=== PATIENT | female | born 1960 | race Caucasian/White ===

== ENCOUNTER → 2019-07-25 13:17 | Outpatient (BNVA) | payer OTHER, SELFPAY | PROVIDERS: Family Provider Family Medicine; PCP Family Medicine; Visit Provider Internal Medicine Rheumatology | DX: M05.79 Rheumatoid arthritis with rheumatoid factor of multiple sites without organ or systems involvement (principal); Z79.899 Other long term (current) drug therapy; Z11.59 Encounter for screening for other viral diseases; Z72.89 Other problems related to lifestyle | CPT/HCPCS: 36415; 80076; 82306; 82565; 85651; 86140; 86704; 99214 ==

== ENCOUNTER → 2019-07-25 14:20 | Outpatient (BNVA) | payer OTHER, SELFPAY | PROVIDERS: Family Provider Family Medicine; PCP Family Medicine; Visit Provider Internal Medicine Rheumatology | DX: M05.79 Rheumatoid arthritis with rheumatoid factor of multiple sites without organ or systems involvement (principal); Z79.899 Other long term (current) drug therapy; Z11.59 Encounter for screening for other viral diseases; Z71.89 Other specified counseling | CPT/HCPCS: 85025 ==

== ENCOUNTER → 2019-11-29 11:13 | Outpatient (BNVA) | payer OTHER, SELFPAY | PROVIDERS: Family Provider Family Medicine; PCP Family Medicine; Visit Provider Internal Medicine Rheumatology | DX: Z79.899 Other long term (current) drug therapy (principal) | CPT/HCPCS: 36415; 80076; 82565; 85025; 85651; 86140 ==

== ENCOUNTER → 2019-12-18 15:55 | Outpatient (BNVA) | payer OTHER, SELFPAY | PROVIDERS: Family Provider Family Medicine; PCP Family Medicine; Visit Provider Internal Medicine Rheumatology | DX: M05.79 Rheumatoid arthritis with rheumatoid factor of multiple sites without organ or systems involvement (principal); Z79.899 Other long term (current) drug therapy; F17.210 Nicotine dependence, cigarettes, uncomplicated | CPT/HCPCS: 99214 ==

== ENCOUNTER 2020-03-06 10:26 | Outpatient (CLI) | payer BC, SELFPAY ==
--- NOTE | 2020-03-06 10:45 | MM_ITS ---
WS: [id number] Bilateral screening digital mammogram, 03/06/2020 Clinical Data: SCREENING Comparison: 01/30/2019, 01/25/2018, 01/24/2017, 01/19/2016, 01/13/2015. Findings: The breast parenchymal pattern shows fibroglandular tissue No spiculated masses or clustered calcific ations are seen. There are no secondary signs of carcinoma. Mole markers are on the breasts. MM/[id number] Impression: 1. Negative bilateral mammogram unchanged. 2. Recommend annual screening mammograms. BIRADS: 1-Negative FOLLOW UP: 1 Year Follow-up The CAD instrument checker was used.
== END 2020-03-06 10:27 | disposition home or self-care (01) ==
LOC: RADSHAW 10:32
PROVIDERS: PCP Nurse Practitioner Family; Visit Provider Nurse Practitioner Family
DX: Z12.31 Encounter for screening mammogram for malignant neoplasm of breast (principal)
CPT/HCPCS: 77067

== ENCOUNTER → 2020-03-12 09:40 | Outpatient (BNVA) | payer BC, SELFPAY | PROVIDERS: PCP Nurse Practitioner Family | DX: Z79.899 Other long term (current) drug therapy (principal) | CPT/HCPCS: 36415; 80076; 82565; 85025; 85651; 86140 ==

== ENCOUNTER → 2020-04-14 13:37 | Outpatient (BNVA) | payer BC, SELFPAY | PROVIDERS: PCP Nurse Practitioner Family; Visit Provider Internal Medicine Rheumatology | DX: M05.79 Rheumatoid arthritis with rheumatoid factor of multiple sites without organ or systems involvement (principal); Z79.899 Other long term (current) drug therapy; Z79.52 Long term (current) use of systemic steroids; R21 Rash and other nonspecific skin eruption | CPT/HCPCS: 99214 ==

== ENCOUNTER → 2020-08-20 09:57 | Outpatient (BNVA) | payer OTHER, SELFPAY | PROVIDERS: PCP Nurse Practitioner Family; Visit Provider Internal Medicine Rheumatology | DX: M05.79 Rheumatoid arthritis with rheumatoid factor of multiple sites without organ or systems involvement (principal); M19.90 Unspecified osteoarthritis, unspecified site; Z79.899 Other long term (current) drug therapy | CPT/HCPCS: 36415; 80076; 82565; 85025; 86140 ==

== ENCOUNTER → 2020-08-27 09:59 | Outpatient (BNVA) | payer OTHER, SELFPAY | PROVIDERS: PCP Nurse Practitioner Family; Visit Provider Internal Medicine Rheumatology | DX: M05.79 Rheumatoid arthritis with rheumatoid factor of multiple sites without organ or systems involvement (principal); Z79.899 Other long term (current) drug therapy; G56.03 Carpal tunnel syndrome, bilateral upper limbs; F17.210 Nicotine dependence, cigarettes, uncomplicated | CPT/HCPCS: 99214 ==

== ENCOUNTER → 2020-12-03 12:50 | Outpatient (BNVA) | payer OTHER, SELFPAY | PROVIDERS: PCP Nurse Practitioner Family; Visit Provider Internal Medicine Rheumatology | DX: M05.79 Rheumatoid arthritis with rheumatoid factor of multiple sites without organ or systems involvement (principal); W19.XXXA Unspecified fall, initial encounter; Z79.899 Other long term (current) drug therapy; G56.03 Carpal tunnel syndrome, bilateral upper limbs; Z71.89 Other specified counseling; F17.210 Nicotine dependence, cigarettes, uncomplicated | CPT/HCPCS: 99214 ==

== ENCOUNTER 2020-12-03 13:45 | Outpatient (CLI) | payer OTHER, SELFPAY ==
--- NOTE | 2020-12-03 13:59 | XR_ITS ---
WS: [id number] Pelvis, AP view, 12/03/2020 Clinical Data: M05.79 - Rheumatoid arthritis with rheumatoid factor of m... Comparison: None. Findings: No fractures or dislocations are seen. The SI joints and pubic symphysis are intact. The soft tissues are not remarkable. The hips show mild osteoarthritic change. The patient has had pelvic surgery with surgical clips overlying the pubic symphysis. XR/XR pelvis 1-2V* [id number] Impression: Negative for pelvic or hip fracture.
--- NOTE | 2020-12-03 13:59 | XR_ITS ---
WS: [id number] Right ankle, 3 views, 12/03/2020 Clinical Data: M05.79 - Rheumatoid arthritis with rheumatoid factor of m... Comparison: None. Findings: No fractures or dislocations are seen. The ankle mortise is normal. The talus and calcaneus are unrem arkable. No soft tissue swelling over the medial or lateral malleolus is seen. There is minimal osteoarthritic change of the ankle joint. There is a small Achilles spur. XR/XR ankle RT min 3V* [id number] Impression: Minimal osteoarthritic change of the right ankle.
[2020-12-03 14:06] LABS: Basophils # 0.1 10^3/uL (0.0-0.1); Basophils % 1.1 %; Eosinophils # 0.2 10^3/uL (0.0-0.8); Eosinophils % 1.3 %; Hematocrit 35.8 % (37.0-47.0); Lymphocytes # 3.5 10^3/uL (0.8-4.8); Lymphocytes % 31.3 %; Mean Corpuscular HGB Conc 33.5 g/dL (30.0-36.0); Mean Corpuscular Hemoglobin 33.4 pg (28.0-34.0); Mean Corpuscular Volume 99.7 fL (81-99); Mean Platelet Volume 10.4 fL (7.4-10.4); Monocytes # 0.5 10^3/uL (0.2-0.9); Monocytes % 4.2 %; Neutrophils # 6.94 10^3/uL (1.8-7.7); Neutrophils % 61.8 %; Nucleated Red Blood Cells % 0 %; Platelet Count 377 10^3/cmm (130-400); Red Blood Count 3.59 10^6/uL (4.1-5.3); Red Cell Distribution Width 15.3 % (12.1-15.1); White Blood Count 11.2 10^3/uL (4.0-10.0)
[2020-12-03 14:25] LABS: Alanine Aminotransferase 11 U/L (0-33); Alkaline Phosphatase 130 IU/L (35-105); Aspartate Amino Transferase 18 U/L (0-32); C Reactive Protein 6.5 mg/L (0.0-4.9); Glomerular Filtration Rate 64.3 mL/min (90-130); Total Bilirubin 0.5 mg/dL (0.15-1.2)
[2020-12-03 14:45] LABS: Erythrocyte Sedimentation Rate 40 mm/hr (0-15)
== END 2020-12-03 13:46 | disposition home or self-care (01) ==
PROVIDERS: PCP Nurse Practitioner Family; Visit Provider Internal Medicine Rheumatology
DX: M05.79 Rheumatoid arthritis with rheumatoid factor of multiple sites without organ or systems involvement (principal); Z79.899 Other long term (current) drug therapy; W19.XXXA Unspecified fall, initial encounter
CPT/HCPCS: 36415; 72170; 73610; 80076; 82565; 85025; 85651; 86140

== ENCOUNTER 2021-03-19 15:10 | Outpatient (CLI) | payer OTHER, SELFPAY ==
--- NOTE | 2021-03-19 | CT_ITS ---
WS: [id number] CT CHEST WITHOUT INTRAVENOUS CONTRAST HISTORY: WELLNESS EXAM, rheumatoid arthritis. Smoking history. TECHNIQUE: Contiguous 5 mm axial imaging performed on the thorax. Coronal and sagittal reformats are submitted. All CT scans at [facility] use at least one of these dose optimization techniques: automated exposure control; mA and/or kV adjustment per patient size (includes targeted exams where dose is matched to clinical indication); or iterative reconstruction. CONTRAST: None DLP: 570.67 mGy.cm COMPARISON: None available. Lungs and central airway: Moderate pulmonary hyperexpansion. Severe changes of emphysema. There are a few scattered micronodules within each lung. Largest measures 2 mm in the posterior LEFT upper lobe. No mass or nodule/follow-up is recommended for micronodules. Pleura: Normal. No pleural effusion. Heart and pericardium: Mildly enlarged heart. Small anterior pericardial effusion. Diameter of the ef fusion is 12 mm. Mediastinum and abdirizak: No adenopathy. Vessels: Mild atherosclerosis aorta with no aneurysm. Pulmonary artery size is not significantly enla rged. Chest wall and lower neck: No soft tissue masses. Upper abdomen: Small hiatal hernia. Suprarenal calcifications continue into the abdominal aorta. Norm al adrenals. Visualized liver, gallbladder, spleen and pancreas are negative. Osseous structures: No destructive process. CT/CT chest wo con [id number] IMPRESSION: 1. Moderate to severe emphysema. No adenopathy. 2. Mild cardiomegaly and a small pericardial effusion. 3. Mild atherosclerosis aorta.
--- NOTE | 2021-03-19 15:16 | XR_ITS ---
WS: [id number] DEXA (DUAL ENERGY X-RAY ABSORPTIOMETRY) Bone mineral density was performed using a ZOCKO machine. HISTORY: POST MENOPAUSAL COMPARISON: None available. Lumbar spine BMD (L1-L4): 0.858 g/cm2 T score: -2.7 Z score: -1.8 Total hip BMD: Left: 0.842 g/cm2. T score: -1.3 Z score: -0.6 Right: 0.812 g/cm2. T score: -1.6 Z score: -0.8 10 year probability of a major osteoporotic fracture is 37%. XR/XR DEXA axial skeleton* [id number] IMPRESSION: OSTEOPOROSIS based upon the WHO classification for females.
== END 2021-03-19 15:11 | disposition home or self-care (01) ==
PROVIDERS: PCP Clinical Nurse Specialist Adult Health; Visit Provider Clinical Nurse Specialist Adult Health
DX: Z00.00 Encounter for general adult medical examination without abnormal findings (principal); Z78.0 Asymptomatic menopausal state; Z87.891 Personal history of nicotine dependence; J43.9 Emphysema, unspecified; I51.7 Cardiomegaly; I31.3 Pericardial effusion (noninflammatory); I70.0 Atherosclerosis of aorta
CPT/HCPCS: 71250; 77080

== ENCOUNTER → 2021-03-25 12:41 | Outpatient (BNVA) | payer OTHER, MEDICAID, SELFPAY | PROVIDERS: PCP Clinical Nurse Specialist Adult Health; Visit Provider Internal Medicine Rheumatology | DX: M05.79 Rheumatoid arthritis with rheumatoid factor of multiple sites without organ or systems involvement (principal); Z79.899 Other long term (current) drug therapy; G56.03 Carpal tunnel syndrome, bilateral upper limbs; W19.XXXA Unspecified fall, initial encounter; Z71.89 Other specified counseling | CPT/HCPCS: 99214 ==

== ENCOUNTER 2021-04-27 09:12 | Outpatient (CLI) | payer OTHER, SELFPAY ==
--- NOTE | 2021-04-27 09:23 | MM_ITS ---
WS: [id number] SCREENING DIGITAL MAMMOGRAM WITH CAD HISTORY: SCREENING COMPARISON: 03/06/2020, 01/30/2019 and 01/25/2018 Bilateral CC and MLO views submitted. Computer aided detection analyzed. Breast composition: There are scattered areas of fibroglandular density. Focal asymmetry measuring 6 mm seen on the LEFT MLO projection at a middle depth. This is central to the nipple. Not definitely s een on the CC projection. No additional interval changes. Benign calcifications in each breast. MM/[place] [id number] IMPRESSION: BI-RADS: 0-Incomplete: Need additional imaging evaluation FOLLOW UP: Need Additional Imaging LEFT breast: Spot compression views (CC and MLO). True ML. Ultrasound to follow if abnormality persists.
== END 2021-04-27 09:13 | disposition home or self-care (01) ==
PROVIDERS: PCP Clinical Nurse Specialist Adult Health; Visit Provider Clinical Nurse Specialist Adult Health
DX: Z12.31 Encounter for screening mammogram for malignant neoplasm of breast (principal)
CPT/HCPCS: 77067

== ENCOUNTER 2021-05-14 07:50 | Outpatient (CLI) | payer OTHER, SELFPAY ==
--- NOTE | 2021-05-14 07:55 | US_ITS ---
WS: [id number] ADDITIONAL VIEWS LEFT MAMMOGRAM LEFT BREAST ULTRASOUND HISTORY: LT BREAST ASYMMETRY COMPARISON: 04/27/2021, 03/06/2020 and 01/30/2019 LEFT MAMMOGRAM: Spot compression views and true ML. Increased asymmetry in the subareolar region. No distortion. No discrete mass. The nipple is slightly retracted but this is not a new finding. Ultrasound will be performed in the subareolar region. LEFT BREAST ULTRASOUND 2-D and color Doppler imaging submitted. Ultrasound is directed to the subareolar region. There are mildly prominent dilated ducts. There is d ebris which is nonvascular within the ducts. There is no focal mass or shadowing. US/US breast LT limited* [id number] IMPRESSION: BI-RADS: 3-Probably Benign FOLLOW UP: 6 Month Follow-up Recommend ultrasound follow-up LEFT breast in 6 months to reevaluate the promin ent ducts with debris in the subareolar region. Suspect this is related to duct ectasia. No associated mass identified.
== END 2021-05-14 07:51 | disposition home or self-care (01) ==
LOC: RADSHAW 07:53
PROVIDERS: PCP Clinical Nurse Specialist Adult Health; Visit Provider Clinical Nurse Specialist Adult Health
DX: N64.89 Other specified disorders of breast (principal)
CPT/HCPCS: 76642; 77065

== ENCOUNTER 2021-05-25 09:36 | Outpatient (CLI) | payer OTHER, SELFPAY ==
--- NOTE | 2021-05-25 09:56 | XR_ITS ---
WS: [id number] Right hand, 2 views, 05/25/2021 Clinical Data: ARTHRITIS/PAIN/EVAL FOR PSA,RA, OA Comparison: None. Findings: No fractures or dislocations are seen. The soft tissues are unremarkable. There is osteoa rthritic narrowing of the right first IP joint and right second DIP joint. No periarticular demineral ization or calcifications are seen. XR/XR hand RT 2V [id number] Impression: Osteoarthritis of the right first IP joint and right second DIP joint.
== END 2021-05-25 09:37 | disposition home or self-care (01) ==
LOC: RAD 09:38
PROVIDERS: PCP Clinical Nurse Specialist Adult Health; Visit Provider Dermatology
DX: Z02.71 Encounter for disability determination (principal); M19.041 Primary osteoarthritis, right hand
CPT/HCPCS: 73120

== ENCOUNTER → 2021-06-30 08:17 | Outpatient (BNVA) | payer OTHER, SELFPAY | PROVIDERS: PCP Clinical Nurse Specialist Adult Health; Visit Provider Family Medicine | DX: Z01.812 Encounter for preprocedural laboratory examination (principal); Z20.822 Contact with and (suspected) exposure to COVID-19 | CPT/HCPCS: 87635 ==

== ENCOUNTER 2021-07-07 07:43 | Outpatient (CLI) | payer OTHER, SELFPAY ==
--- NOTE | 2021-07-07 13:57 | PFTS_ITS ---
Date of Study:07/07/21 Date of Dictation: 07/09/2021 MECHANICS: Prebronchodilator forced vital capacity (FVC) is normal. Prebronchodilator forced expiratory volume in one second (FEV1) is normal. FEV1/FVC is reduced. -There is no postbronchodilator study FLOW VOLUME LOOP: Scooping of expiratory limb suggestive of airway obstruction LUNG VOLUMES: Total lung capacity (TLC) is normal. Residual volume (RV) is normal. DIFFUSING CAPACITY FOR CARBON MONOXIDE: Mildly reduced 63% . INTERPRETATION: The pre-bronchodilator spirometry consistent with obstructive pattern. Lung volumes are normal. Mild gas transfer defect. Clinical correlation recommended MTDD
== END 2021-07-07 07:44 | disposition home or self-care (01) ==
PROVIDERS: PCP Clinical Nurse Specialist Adult Health; Visit Provider Clinical Nurse Specialist Adult Health
DX: R06.02 Shortness of breath (principal)
CPT/HCPCS: 94010; 94726; 94729

== ENCOUNTER 2021-10-26 04:05 | Observation (INO) | payer OTHER, MEDICAID, SELFPAY ==
[2021-10-26] VITALS (11 sets, daily range): BP systolic 90–133; BP diastolic 51–98; PULSE 75–103; RESP 16–20; TEMP 36.5–37.4; O2SAT 92–97; BMI 25.7
[2021-10-26 04:29] LABS: Basophils # 0.2 10^3/uL (0.0-0.1); Basophils % 1.3 %; Eosinophils % 0.1 %; Hematocrit 50.6 % (37.0-47.0); Hemoglobin 17.5 g/dL (11.5-15.3); Lymphocytes # 1.5 10^3/uL (0.8-4.8); Lymphocytes % 9.8 %; Mean Corpuscular HGB Conc 34.6 g/dL (30.0-36.0); Mean Corpuscular Hemoglobin 32.9 pg (28.0-34.0); Mean Corpuscular Volume 95.1 fl (81-99); Mean Platelet Volume 12.5 fL (7.4-10.4); Monocytes # 2.3 10^3/uL (0.2-0.9); Monocytes % 14.8 %; Neutrophils # 11.18 10^3/uL (1.8-7.7); Neutrophils % 73.3 %; Nucleated Red Blood Cells % 0 %; Platelet Count 272 10^3/cmm (130-400); Red Blood Count 5.32 10^6/uL (4.1-5.3); Red Cell Distribution Width 13.5 % (12.1-15.1); White Blood Count 15.3 10^3/uL (4.0-10.0)
--- NOTE | 2021-10-26 04:34 | W.ED.NAVMDI ---
HPI - Nausea/Vomiting/Diarrhea General: Chief complaint: Nausea/Vomiting/Diarrhea Stated complaint: n/v/d Time Seen by Provider: 10/26/21 04:21 Source: patient History of Present Illness: 61-year-old female with epigastric pain, vomiting and diarrhea for the past 24 hours or so. She says she has been hot and cold, but no documented fever. Vomitus and stool are both watery. No blood. Pain has not radiated significantly. She feels dehydrated, and has body aches. She has had a mild cough. MD elicited complaint: nausea, vomiting, diarrhea and abdominal pain Onset (ago): hour(s) (24) Description of vomiting: watery Description of diarrhea: watery Associated nausea: Yes Associated abdominal pain: Yes Location of pain: Diffuse and Epigastric Pain consistency: intermittent Severity: moderate Quality: cramping Exacerbating factors: none Relieving factors: none Associated symtoms: Reports cough, fevers/chills and nausea; Denies altered mental status, chest pain, diaphoresis, dysuria, numbness or short of breath Review of Systems Const: Reports: chills and body aches; Denies: fever(s) or diaphoresis Card: Denies: chest pain GI: Reports: nausea : Denies: dysuria Musc: Denies: back pain PFSH ED PFSH: Medical History Bilateral carpal tunnel syndrome Encounter for screening for other viral diseases Fall High risk medication use Hypothyroid Immunization counseling Rheumatoid arthritis with rheumatoid factor Seropositive rheumatoid arthritis of multiple sites Surgical History History of hysterectomy Hx of section Family History Other Cancer Diabetes Hypertension Denies family history of Rheumatoid arthritis Lupus CAD (coronary artery disease) Chronic kidney disease (CKD) Stroke Social History Smoking and tobacco status: never smoked Alcohol intake: never Pets and animals: No Financial difficulty paying for basics: Not Very Hard Physical Exam Const: EXAM LIMITATIONS: no altered mental status HENMT: COMMON NORMALS: normocephalic, atraumatic and Normal external nose present HEAD & SCALP: normocephalic and atraumatic FACE & SINUS: normal facial exam NOSE: Normal external nose present Eye: COMMON NORMALS: Equal, round and reactive pupils present and EOMs intact bilaterally PUPIL: Yes Equal, round and reactive pupils present Resp: COMMON NORMALS: normal respiratory effort and No use of accessory muscles AUSCULTATION: rhonchi upper bilaterally Cardio: COMMON NORMALS: regular rate and regular rhythm RATE: regular rate RHYTHM: regular rhythm GI: COMMON NORMALS: Normal to inspection, nondistended, normoactive bowel sounds present and Soft to palpation PALPATION: Yes Soft to palpation and Yes Tenderness to palpation present (GI) (epigastric) Extremity: COMMON NORMALS: no pedal edema Neuro: MARTIN COMA SCALE: document GCS findings Martin coma scale eye opening: Spontaneous Martin coma scale verbal response: Orientated [place] coma scale motor response: Obey commands Martin coma scale total score: 15 Skin: GENERAL SKIN EXAM: no jaundice Course Vital Signs: Vital signs: Vital Signs Temperature 97.7 F 10/26/21 04:21 Pulse Rate 91 10/26/21 06:00 Respiratory Rate 16 10/26/21 06:00 Blood Pressure 110/60 10/26/21 06:00 Pulse Oximetry 92 10/26/21 06:00 MDM - Nausea/Vomiting/Diarrhea Medical Decision Making 61-year-old female with vomiting and diarrhea. White blood cell count is 15.3. Her bicarbonate level 16. Her creatinine is 2.5 up from 0.9 in November of last year. Her CRP is not elevated though. CT scan shows nondilated fluid-filled loops of bowel consistent with ileus. She will require admission for dehydration with acute kidney injury given her creatinine. Vital signs currently BP 109/66, heart rate 100, saturations 93 to 94% on room air. Lab Data : 10/26/21 04:20 10/26/21 04:20 Radiology Impressions Abdomen/Pelvis CT 10/26/21 04:35 IMPRESSION: 1. Nondilated small bowel loops containing fluid and air fluid levels suggests diffuse ileus. 2. Normal appendix 3. No evidence for ureteral obstruction 4. Small pericardial effusion Laboratory Results WBC 15.3 10^3/uL (4.0-10.0) H 10/26/21 04:20 RBC 5.32 10^6/uL (4.1-5.3) H 10/26/21 04:20 Hgb 17.5 g/dL (11.5-15.3) H 10/26/21 04:20 Hct 50.6 % (37.0-47.0) H 10/26/21 04:20 MCV 95.1 fl (81-99) 10/26/21 04:20 MCH 32.9 pg (28.0-34.0) 10/26/21 04:20 MCHC 34.6 g/dL (30.0-36.0) 10/26/21 04:20 RDW 13.5 % (12.1-15.1) 10/26/21 04:20 Plt Count 272 10^3/cmm (130-400) 10/26/21 04:20 MPV 12.5 fL (7.4-10.4) H 10/26/21 04:20 Neut % (Auto) 73.3 % 10/26/21 04:20 Lymph % (Auto) 9.8 % 10/26/21 04:20 Hitchcock % (Auto) 14.8 % 10/26/21 04:20 Eos % (Auto) 0.1 % 10/26/21 04:20 Baso % (Auto) 1.3 % 10/26/21 04:20 Neut # (Auto) 11.18 10^3/uL (1.8-7.7) H 10/26/21 04:20 Lymph # (Auto) 1.5 10^3/uL (0.8-4.8) 10/26/21 04:20 Hitchcock # (Auto) 2.3 10^3/uL (0.2-0.9) H 10/26/21 04:20 Eos # (Auto) 0.0 10^3/uL (0.0-0.8) 10/26/21 04:20 Baso # (Auto) 0.2 10^3/uL (0.0-0.1) H 10/26/21 04:20 Nucleated RBC % (auto) 0 % 10/26/21 04:20 Nucleated RBCs # 0.0 /100WBC 10/26/21 04:20 Sodium 135 mmol/L (136-145) L 10/26/21 04:20 Potassium 4.2 mmol/L (3.5-5.1) 10/26/21 04:20 Chloride 97 mmol/L (98-107) L 10/26/21 04:20 Carbon Dioxide 16 mmol/L (22-29) L 10/26/21 04:20 Anion Gap 26.2 (5-19) H 10/26/21 04:20 BUN 29 mg/dL (6-20) H 10/26/21 04:20 Creatinine 2.5 mg/dL (0.5-0.9) H 10/26/21 04:20 GFR Calculation 19.7 mL/min (90-130) L 10/26/21 04:20 Glucose 168 mg/dL (65-115) H 10/26/21 04:20 Calculated Osmolality 290 mOsm/kg (285-295) 10/26/21 04:20 Calcium 10.1 mg/dL (8.5-10.5) 10/26/21 04:20 Total Bilirubin 0.4 mg/dL (0.15-1.2) 10/26/21 04:20 AST 46 U/L (0-32) H 10/26/21 04:20 ALT 44 U/L (0-33) H 10/26/21 04:20 Alkaline Phosphatase 85 IU/L (35-105) 10/26/21 04:20 C-Reactive Protein 3.0 mg/L (0.0-4.9) 10/26/21 04:20 Total Protein 9.3 g/dL (6.6-8.7) H 10/26/21 04:20 Albumin 5.4 g/dL (3.5-5.2) H 10/26/21 04:20 Globulin 3.9 g/dL (1.3-4.6) 10/26/21 04:20 Lipase 11 U/L (13-60) L 10/26/21 04:20 Discharge Plan Discharge Patient Disposition: Admitted As Inpatient Clinical Impression: Ileus, Acute kidney injury, Acute dehydration Condition: Stable Coding Level of Care Code ED Cash Accountant for Jess Fwd Exam Comprehensive
--- NOTE | 2021-10-26 04:35 | CTR_ITS ---
PROCEDURE INFORMATION: Exam: CT Abdomen And Pelvis Without Contrast Exam date and time: 10/26/2021 4:57 AM Age: 61 years old Clinical indication: Nausea and vomiting; Abdominal pain; Epigastric; Prior surgery; Surgery date: 6+ months; Surgery type: Hyst; Additional info: Epigastric pain, vomiting TECHNIQUE: Imaging protocol: Computed tomography of the abdomen and pelvis without contrast. Radiation optimization: All CT scans at this facility use at least one of these dose optimization techniques: automated exposure control; mA and/or kV adjustment per patient size (includes targeted exams where dose is matched to clinical indication); or iterative reconstruction. COMPARISON: CR XR pelvis 1-2V* [id number] 12/03/2020 2:04 PM RADIATION DOSE METRICS: Total DLP (mGy-cm): 966.09 FINDINGS: Heart: There is a small pericardial effusion seen anteriorly. Liver: Normal. No mass. Gallbladder and bile ducts: Normal. No calcified stones. No ductal dilation. Pancreas: Normal. No ductal dilation. Spleen: Normal. No splenomegaly. Adrenal glands: Normal. No mass. Kidneys and ureters: Normal. No hydronephrosis. Stomach and bowel: There are non dilated loops of small bowel present containing fluid and air fluid levels, findings compatible with a diffuse ileus. Appendix: The appendix is visualized and is normal in configuration. Intraperitoneal space: Unremarkable. No free air. No significant fluid collection. Vasculature: Unremarkable. No abdominal aortic aneurysm. Lymph nodes: Unremarkable. No enlarged lymph nodes. Urinary bladder: Status post bladder suspension. Reproductive: Status post hysterectomy. Bones/joints: Unremarkable. No acute fracture. Soft tissues: Unremarkable. CT/CT abdomen pelvis wo con [id number] IMPRESSION: 1. Nondilated small bowel loops containing fluid and air fluid levels suggests diffuse ileus. 2. Normal appendix 3. No evidence for ureteral obstruction 4. Small pericardial effusion
[2021-10-26 04:45] LABS: Alanine Aminotransferase 44 U/L (0-33); Albumin Level 5.4 g/dL (3.5-5.2); Alkaline Phosphatase 85 IU/L (35-105); Anion Gap 26.2 (5-19); Aspartate Amino Transferase 46 U/L (0-32); Blood Urea Nitrogen 29 mg/dL (6-20); Calcium 10.1 mg/dL (8.5-10.5); Carbon Dioxide 16 mmol/L (22-29); Chloride 97 mmol/L (98-107); Globulin 3.9 g/dL (1.3-4.6); Glomerular Filtration Rate 19.7 mL/min (90-130); Glucose 168 mg/dL (65-115); Lipase 11 U/L (13-60); Osmolality Calculated 290 mOsm/kg (285-295); Potassium 4.2 mmol/L (3.5-5.1); Sodium 135 mmol/L (136-145); Total Bilirubin 0.4 mg/dL (0.15-1.2); Total Protein 9.3 g/dL (6.6-8.7)
[2021-10-26] MEDS: famotidine 20 mg/2 mL INJ IVP (04:56)
[2021-10-26] MEDS: ondansetron 2 mg/ML SDV 2 mL 4 MG IVP (04:56)
[2021-10-26] MEDS: sodium chloride 0.9% 1,000 ML 999 ML IV ×2 (04:56→07:17)
[2021-10-26 06:41] LABS: Adenovirus Not Detected (NOT DETECT); Chlamydia Pneumoniae Not Detected (NOT DETECT); Coronavirus 229E,HKU1,NL63,OC4 Not Detected (NOT DETECT); Human Metapneumovirus Not Detected (NOT DETECT); Human Rhinovirus/Enterovirus Not Detected (NOT DETECT); Influenza A Not Detected (NOT DETECT); Influenza A H1 Not Detected (NOT DETECT); Influenza A H1-2009 Not Detected (NOT DETECT); Influenza A H3 Not Detected (NOT DETECT); Influenza B Not Detected (NOT DETECT); Mycoplasma Pneumoniae Not Detected (NOT DETECT); Parainfluenza Virus Type 1 Not Detected (NOT DETECT); Parainfluenza Virus Type 2 Not Detected (NOT DETECT); Parainfluenza Virus Type 3 Not Detected (NOT DETECT); Parainfluenza Virus Type 4 Not Detected (NOT DETECT); Respiratory Syncytial Virus A Not Detected (NOT DETECT); Respiratory Syncytial Virus B Not Detected (NOT DETECT); SARS-COV-2 Not Detected (NOT DETECT)
--- NOTE | 2021-10-26 07:48 | PM.HP ---
Providers/Chief Complaint Admitting Physician: Deepak Dowd MD Chief Complaint: n/v/d History of Present Illness Sabrina Dominguez is a 61 year old female that presents to the emergency department with 24-hour history of nausea, vomiting and diarrhea. She reports she has had some abdominal cramping, that goes away with vomiting and the diarrhea. She has had some chills, but no vomiting. She denies any ill contacts. She has not been around anybody with COVID. She has been vaccinated. She reports quite a bit of muscle pain. She denies any bloody or brown urine. She has vomited her medicine lately. She denies any blood in her stool, black or tarry stools, or hematemesis. Review of Systems General: Reports: 10 or more systems reviewed and unremarkable except in HPI and below Const: Reports: chills, body aches and malaise; Denies: fever(s) Eyes: Denies: change in vision ENMT: Denies: throat pain Card: Denies: chest pain Resp: Denies: dyspnea GI: Reports: abdominal pain, nausea and vomiting; Denies: hematemesis, hematochezia or melena : Denies: flank pain Musc: Denies: neck pain Skin/Breast: Denies: rash Neuro: Denies: headache(s) Psych: Reports: anxiety and depression Endo: Denies: polyuria Taurus/Lymph: Denies: easy bruising All/Imm: Denies: urticaria Medications/Allergies Home Medications Medication Instructions Recorded Confirmed Last Taken Type tramadol 50 mg tablet 50 mg PO Q4H PRN 07/25/19 07/21/21 Unknown History alprazolam 0.5 mg tablet 0.5 mg PO BID 09/28/19 07/21/21 Unknown History cholecalciferol (vitamin D3) 25 25 mcg PO DAILY 09/28/19 07/21/21 Unknown History mcg (1,000 unit) capsule levothyroxine 137 mcg capsule 137 mcg PO DAILY 09/28/19 07/21/21 Unknown History sertraline 25 mg tablet (Zoloft) 25 mg PO DAILY 09/28/19 07/21/21 Unknown History prednisone 10 mg tablet 10 mg PO DAILY PRN #30 tab 04/14/20 07/21/21 Unknown Rx folic acid 1 mg tablet 3 mg PO DAILY #90 tab 09/04/20 07/21/21 Unknown Rx ciclopirox 8 % topical solution 1 applic TOPICAL DAILY #6.6 ml 02/10/21 07/21/21 Unknown Rx ketoconazole 2 % topical cream 1 applic TOPICAL BID #60 g 02/10/21 07/21/21 Unknown Rx diclofenac sodium 75 mg 75 mg PO Q12H PRN #30 tab 03/25/21 07/21/21 Unknown Rx tablet,delayed release triamcinolone acetonide 0.1 % 1 applic TOPICAL BID #80 g 03/26/21 07/21/21 Unknown Rx topical ointment albuterol sulfate 90 mcg/actuation 2 inh INHALATION Q6H PRN 07/21/21 07/21/21 Unknown History breath activated powder inhaler gabapentin 300 mg capsule See Rx Instructions PO BID #180 cap 07/21/21 07/21/21 Unknown Rx hydroxychloroquine 200 mg tablet 200 mg PO BID #180 tab 07/21/21 07/21/21 Unknown Rx prednisone 5 mg tablet See Rx Instructions PO .COMPLEX 07/21/21 07/21/21 Unknown Rx #90 tab tiotropium 2.5 mcg-olodaterol 2.5 2 puff INHALATION DAILY 07/21/21 07/21/21 Unknown History mcg/actuation mist for inhalation (Stiolto Respimat) leflunomide 20 mg tablet 20 mg PO DAILY #90 tab 07/27/21 Unknown Rx tocilizumab 162 mg/0.9 mL 162 mg (0.9 mL) SUBCUT .Q7days #4 10/13/21 Unknown Rx subcutaneous pen injector (Actemra ml ACTPen) Allergies Allergy/AdvReac Type Severity Reaction Status Date / Time meperidine [From Demerol] Allergy vomiting Verified 07/21/21 10:52 PFSH Acute PFSH: Medical History (Updated 10/26/21 @ 07:53 by Deepak Dowd MD) Bilateral carpal tunnel syndrome COPD (chronic obstructive pulmonary disease) Depression with anxiety Encounter for screening for other viral diseases Fall High risk medication use Hypothyroid Immunization counseling Osteoporosis Rheumatoid arthritis with rheumatoid factor Seropositive rheumatoid arthritis of multiple sites Tobacco dependency Surgical History History of hysterectomy Hx of section Family History Other Cancer Diabetes Hypertension Denies family history of Rheumatoid arthritis Lupus CAD (coronary artery disease) Chronic kidney disease (CKD) Stroke Social History Smoking and tobacco status: never smoked Alcohol intake: never Pets and animals: No Financial difficulty paying for basics: Not Very Hard Vitals/I&O/Wt Last Vital Signs Temp 97.7 F 10/26/21 04:21 Pulse 91 10/26/21 06:00 Resp 16 10/26/21 06:00 BP 110/60 10/26/21 06:00 Pulse Ox 92 10/26/21 06:00 10/25/21 10/26/21 10/26/21 22:59 06:59 14:59 Intake Total 1000 / 1000 Balance 1000 / 1000 Weight last 48 hrs Weight 70.307 kg Physical Exam Narrative: General exam is a white female, denying any abdominal pain currently, in no apparent distress HEENT: Atraumatic normocephalic. Pupils equally round. Oropharynx with dry mucous membranes, clear Neck is supple no lymphadenopathy or thyromegaly Cardiovascular regular rate and rhythm without murmur, no S3 or S4 Lungs clear no wheezing or crackles Abdomen is soft. Positive bowel sounds. No obvious organomegaly. No tenderness. exam is deferred Extremities no cyanosis clubbing or edema, cap refill brisk Skin no rash Neuro no obvious focal deficits. Data : 10/26/21 04:20 10/26/21 04:20 Micro: Anion gap is 26 AST ALT 46 and 44 respectively Alk phos 85 Bilirubin normal Calcium normal Lipase 11 COVID PCR negative Abdomen pelvis CT demonstrates nondilated small bowel loops containing some air-fluid levels, normal appendix, no evidence of ureteral obstruction, small pericardial effusion A&P Assessment and plan (1) Intractable vomiting: Associated with diarrhea. This most likely represents gastroenteritis. Hydration Stool studies, C. difficile toxin N.p.o. for now, with the exception of ice chips and advance diet as tolerated. Protonix IV Status: Acute (2) Acute kidney injury: Significant acute kidney injury on presentation Check CK Renal ultrasound Expect this to improve with hydration Avoid renal toxic medication Status: Acute Plan History of rheumatoid arthritis. Continue prednisone, increase to twice daily dosing to prevent adrenal crisis Tobacco dependency. Counseled 3 to 5 minutes on tobacco cessation Multiple other medical problems as outlined in past medical history Full code Heparin will suffice for DVT prophylaxis Attestations Medical Necessity Statement*: Will need less than 2 midnight stay for evaluation and treatment of acute kidney injury and intractable nausea and vomiting. Coding Level of Care Code Acute Lan/Wan Engineer for Chg Fwd Diagnoses Intractable vomiting R11.10 Acute kidney injury N17.9
[2021-10-26] MEDS: heparin 5,000 unit/mL INJ 1 mL 5000 UNIT SUBCUT ×2 (08:21→20:42)
[2021-10-26] MEDS: nicotine 21 mg Patch 1 PATCH TRANSDERMA (08:22)
[2021-10-26] MEDS: pantoprazole 40 mg SDV IVP ×2 (08:22→20:42)
[2021-10-26] MEDS: predniSONE 5 mg Tablet PO ×2 (08:23→17:10)
--- NOTE | 2021-10-26 08:38 | PC.NURSE ---
weight: 152.5 height: 5'5
--- NOTE | 2021-10-26 08:48 | PC.NURSE ---
PATIENT STATES SHE USES [employer] [employer] EVERY EVENING AROUND 2029 TO HELP HER REST. PATIENTS LAST USE WAS TUESDAY EVENING 10-24-21.
[2021-10-26 08:49] LABS: Add Urine Microscopic? YES; Bilirubin Urine 1+ (Negative); Blood Urine Trace (Negative); Glucose Urine UA Norm (Normal); Ketones Urine 1+ (Negative); Leukocyte Esterase Urine Negative (Negative); Nitrate Urine Negative (Negative); Protein Urine Trace (Negative); RBC Urine 0-4 /hpf (0-2); Urine Appearance Hazy (CLEAR); Urine Color Yellow (Yellow); Urobilinogen Urine Norm (Negative); pH Urine 5 (5-7)
[2021-10-26 08:50] LABS: Bacteria Urine 1+ /hpf; Calcium Oxalate Crystals Urine 0-4 /hpf; Mucus Urine 1+ /hpf
[2021-10-26 08:51] LABS: Add Urine Culture? No; Amorphous Sediment Urine TRACE /hpf; Hyaline Casts Urine 55-80 /lpf
[2021-10-26 08:55] LABS: Creatine Phosphokinase 185 U/L (26-192); Thyroid Stimulating Hormone 2.04 uIU/mL (0.27-4.20)
[2021-10-26] MEDS: sodium chloride 0.9% 1,000 ML 125 ML IV ×2 (09:51→17:10)
[2021-10-26 12:09] LABS: Estmated Average Glucose 100; Hemoglobin A1C 5.1 % (4.0-6.0)
[2021-10-26] MEDS: acetaminophen 325 mg Tablet 650 MG PO (15:14)
[2021-10-26] MEDS: atorvastatin 40 mg Tablet PO (20:43)
[2021-10-27] VITALS: BP 114/68; PULSE 70; RESP 17; TEMP 37.4; O2SAT 97
[2021-10-27] MEDS: acetaminophen 325 mg Tablet 650 MG PO (00:11)
[2021-10-27] MEDS: sodium chloride 0.9% 1,000 ML 125 ML IV ×2 (01:51→11:54)
[2021-10-27 04:00] VITALS: BP 130/75; PULSE 74; RESP 17; TEMP 36.8; O2SAT 96
[2021-10-27 05:47] LABS: Basophils # 0.1 10^3/uL (0.0-0.1); Basophils % 1.2 %; Eosinophils % 0.3 %; Hematocrit 40.7 % (37.0-47.0); Hemoglobin 13.7 g/dL (11.5-15.3); Lymphocytes # 2.3 10^3/uL (0.8-4.8); Lymphocytes % 31.7 %; Mean Corpuscular HGB Conc 33.7 g/dL (30.0-36.0); Mean Corpuscular Hemoglobin 32.9 pg (28.0-34.0); Mean Corpuscular Volume 97.8 fl (81-99); Mean Platelet Volume 12.4 fL (7.4-10.4); Monocytes # 1.9 10^3/uL (0.2-0.9); Monocytes % 25.7 %; Nucleated Red Blood Cells % 0 %; Platelet Count 175 10^3/cmm (130-400); Red Blood Count 4.16 10^6/uL (4.1-5.3); Red Cell Distribution Width 13.6 % (12.1-15.1); White Blood Count 7.3 10^3/uL (4.0-10.0)
[2021-10-27] MEDS: sertraline 50 mg Tablet 25 MG PO (05:55)
[2021-10-27] MEDS: levothyroxine 137 mcg Tablet PO (05:55)
[2021-10-27 06:06] LABS: Alanine Aminotransferase 35 U/L (0-33); Alkaline Phosphatase 53 IU/L (35-105); Anion Gap 13.8 (5-19); Aspartate Amino Transferase 60 U/L (0-32); Blood Urea Nitrogen 14 mg/dL (6-20); Calcium 7.4 mg/dL (8.5-10.5); Carbon Dioxide 17 mmol/L (22-29); Chloride 112 mmol/L (98-107); Globulin 2.4 g/dL (1.3-4.6); Glomerular Filtration Rate 56.7 mL/min (90-130); Glucose 80 mg/dL (65-115); Magnesium 2.3 mg/dL (1.7-2.3); Osmolality Calculated 287 mOsm/kg (285-295); Potassium 3.8 mmol/L (3.5-5.1); Sodium 139 mmol/L (136-145); Total Bilirubin 0.2 mg/dL (0.15-1.2); Total Protein 6.4 g/dL (6.6-8.7)
[2021-10-27] MEDS: ondansetron 2 mg/ML SDV 2 mL 4 MG IVP (06:14)
--- NOTE | 2021-10-27 07:45 | PC.NURSE ---
received bedside report, reviewed poc and assumed care of patient.
[2021-10-27 07:47] VITALS: BP 126/74; PULSE 67; RESP 18; TEMP 36.6; O2SAT 95
[2021-10-27 08:33] LABS: Hepatitis A Antibody IgM Non-Reactive (Nonreactive); Hepatitis B Core IgM Non-Reactive (Nonreactive); Hepatitis B Surface Antigen Non-Reactive (Nonreactive); Hepatitis C Virus Antibody Non-Reactive (Nonreactive)
[2021-10-27] MEDS: pantoprazole 40 mg SDV IVP (08:56)
[2021-10-27] MEDS: nicotine 21 mg Patch 1 PATCH TRANSDERMA (08:57)
[2021-10-27] MEDS: heparin 5,000 unit/mL INJ 1 mL 5000 UNIT SUBCUT (08:57)
[2021-10-27] MEDS: predniSONE 5 mg Tablet PO (08:57)
[2021-10-27 11:12] VITALS: PULSE 67; RESP 18; O2SAT 94
[2021-10-27 11:54] VITALS: BP 124/74; PULSE 73; RESP 18; TEMP 36.7; O2SAT 93
--- NOTE | 2021-10-27 12:58 | P.DS_ITS ---
Discharge Providers Date of Admission: 10/26/21 07:27 Date of Discharge: October 27, 2021 Attending Provider at Admission: Deepak Dowd MD Attending Provider at Discharge: Deepak Dowd MD Diagnoses at Discharge Discharge Diagnosis (1) Intractable vomiting: Status: Acute (2) Acute kidney injury: Status: Acute Reason for Visit Reason for Visit: n/v/d Hospital Course Hospital Course Mrs. Dominguez is a 61-year-old white female who presented to the hospital with vomiting and diarrhea. She had evidence of acute kidney injury. She was rehydrated, placed on Protonix, and eventually started on a clear liquid diet. Stool studies were performed which were negative for C. difficile, and enteric pathogen's. Abdomen and pelvis CT was also completed, demonstrating possible mild diffuse ileus but no other abnormality. With initiation of her clear liquid diet she had a few more episodes of emesis, which resolved. By October 27, she was able to tolerate a full liquid diet without vomiting. At that time it was deemed she could be discharged home with further outpatient follow-up. Liver tests consisting of AST and ALT were slightly elevated in the hospital. Hepatitis panel was negative. These will need to be rechecked as an outpatient. Alk phosphatase and bilirubin were normal. Urine was also checked during her hospital stay, consistent with contamination but not infection. Physical Exam Narrative: General exam is a white female, no distress Neck is supple no lymphadenopathy or thyromegaly Cardiovascular regular rate and rhythm without murmur Lungs clear Abdomen is soft with positive bowel sounds Extremities no cyanosis clubbing or edema Discharge Data Studies Completed and Pending Completed Studies During Hospitalization Category Date Time Status CT abdomen pelvis con [id number] Urgent Cat Scan 10/26/21 04:35 Completed Radiology Impressions Abdomen/Pelvis CT 10/26/21 04:35 IMPRESSION: 1. Nondilated small bowel loops containing fluid and air fluid levels suggests diffuse ileus. 2. Normal appendix 3. No evidence for ureteral obstruction 4. Small pericardial effusion Laboratory Results WBC 7.3 10^3/uL (4.0-10.0) 10/27/21 05:28 RBC 4.16 10^6/uL (4.1-5.3) 10/27/21 05:28 Hgb 13.7 g/dL (11.5-15.3) 10/27/21 05:28 Hct 40.7 % (37.0-47.0) 10/27/21 05:28 MCV 97.8 fl (81-99) 10/27/21 05:28 MCH 32.9 pg (28.0-34.0) 10/27/21 05:28 MCHC 33.7 g/dL (30.0-36.0) 10/27/21 05:28 RDW 13.6 % (12.1-15.1) 10/27/21 05:28 Plt Count 175 10^3/cmm (130-400) D 10/27/21 05:28 MPV 12.4 fL (7.4-10.4) H 10/27/21 05:28 Neut % (Auto) 41.0 % 10/27/21 05:28 Lymph % (Auto) 31.7 % 10/27/21 05:28 [place] % (Auto) 25.7 % 10/27/21 05:28 Eos % (Auto) 0.3 % 10/27/21 05:28 Baso % (Auto) 1.2 % 10/27/21 05:28 Neut # (Auto) 3.00 10^3/uL (1.8-7.7) 10/27/21 05:28 Lymph # (Auto) 2.3 10^3/uL (0.8-4.8) 10/27/21 05:28 [place] # (Auto) 1.9 10^3/uL (0.2-0.9) H 10/27/21 05:28 Eos # (Auto) 0.0 10^3/uL (0.0-0.8) 10/27/21 05:28 Baso # (Auto) 0.1 10^3/uL (0.0-0.1) 10/27/21 05:28 Nucleated RBC % (auto) 0 % 10/27/21 05:28 Nucleated RBCs # 0.0 /100WBC 10/27/21 05:28 Sodium 139 mmol/L (136-145) 10/27/21 05:28 Potassium 3.8 mmol/L (3.5-5.1) 10/27/21 05:28 Chloride 112 mmol/L (98-107) H 10/27/21 05:28 Carbon Dioxide 17 mmol/L (22-29) L 10/27/21 05:28 Anion Gap 13.8 (5-19) 10/27/21 05:28 BUN 14 mg/dL (6-20) 10/27/21 05:28 Creatinine 1.0 mg/dL (0.5-0.9) H 10/27/21 05:28 GFR Calculation 56.7 mL/min (90-130) L 10/27/21 05:28 Glucose 80 mg/dL (65-115) 10/27/21 05:28 Estimat Average Glucose 100 10/26/21 04:20 Hemoglobin A1c 5.1 % (4.0-6.0) 10/26/21 04:20 Calculated Osmolality 287 mOsm/kg (285-295) 10/27/21 05:28 Calcium 7.4 mg/dL (8.5-10.5) L 10/27/21 05:28 Magnesium 2.3 mg/dL (1.7-2.3) 10/27/21 05:28 Total Bilirubin 0.2 mg/dL (0.15-1.2) 10/27/21 05:28 AST 60 U/L (0-32) H 10/27/21 05:28 ALT 35 U/L (0-33) H 10/27/21 05:28 Alkaline Phosphatase 53 IU/L (35-105) 10/27/21 05:28 Creatine Kinase 185 U/L (26-192) 10/26/21 04:20 C-Reactive Protein 3.0 mg/L (0.0-4.9) 10/26/21 04:20 Total Protein 6.4 g/dL (6.6-8.7) L 10/27/21 05:28 Albumin 4.0 g/dL (3.5-5.2) 10/27/21 05:28 Globulin 2.4 g/dL (1.3-4.6) 10/27/21 05:28 Lipase 11 U/L (13-60) L 10/26/21 04:20 TSH 2.04 uIU/mL (0.27-4.20) 10/26/21 04:20 Urine Color Yellow (Yellow) 10/26/21 08:05 Urine Appearance Hazy (CLEAR) A 10/26/21 08:05 Urine pH 5 (5-7) 10/26/21 08:05 Ur Specific [place] 1.030 (1.005-1.030) 10/26/21 08:05 Urine Protein Trace (Negative) 10/26/21 08:05 Urine Glucose (UA) Norm (Normal) 10/26/21 08:05 Urine Ketones 1+ (Negative) H 10/26/21 08:05 Urine Blood Trace (Negative) H 10/26/21 08:05 Urine Nitrate Negative (Negative) 10/26/21 08:05 Urine Bilirubin 1+ (Negative) H 10/26/21 08:05 Urine Urobilinogen Norm mg/dL (Negative) 10/26/21 08:05 Ur Leukocyte Esterase Negative (Negative) 10/26/21 08:05 Urine RBC 0-4 /hpf (0-2) H 10/26/21 08:05 Urine WBC 5-10 /hpf (0-5) H 10/26/21 08:05 Ur Squamous Epith Cells 5-10 /hpf (0-5) H 10/26/21 08:05 Calcium Oxalate Crystal 0-4 /hpf H 10/26/21 08:05 Amorphous Sediment Trace /hpf 10/26/21 08:05 Urine Bacteria 1+ /hpf (NONE) H 10/26/21 08:05 Hyaline Casts 55-80 /lpf H 10/26/21 08:05 Urine Mucus 1+ /hpf 10/26/21 08:05 Coronavirus 229E (PCR) Not detected (NOT DETECT) 10/26/21 04:53 Hepatitis A IgM Ab Non-reactive (Nonreactive) 10/26/21 08:20 Hep Bs Antigen Non-reactive (Nonreactive) 10/26/21 08:20 Hep B Core IgM Ab Non-reactive (Nonreactive) 10/26/21 08:20 Hepatitis C Antibody Non-reactive (Nonreactive) 10/26/21 08:20 SARS-CoV-2 (PCR) Not detected (NOT DETECT) 10/26/21 04:53 Vitals Last Vital Signs Temp 98.0 F 10/27/21 11:54 Pulse 73 10/27/21 11:54 Resp 18 10/27/21 11:54 BP 124/74 10/27/21 11:54 Pulse Ox 93 10/27/21 11:54 Discharge Plan Discharge Patient Disposition: Home Condition: Stable Prescriptions: New nicotine 21 mg/24 hr Patch 24 Hour 1 patch transdermal Q24H Qty: 14 0RF nicotine 14 mg/24 hr patch 24 hour 1 patch transdermal DAILY Qty: 14 0RF Continued tramadol 50 mg tablet 50 mg PO Q4H PRN (Reason: Pain) 0RF alprazolam 0.5 mg tablet 0.5 mg PO TID PRN (Reason: Panic Attack(S)) 0RF sertraline [Zoloft] 25 mg tablet 25 mg PO QAM 0RF Stiolto Respimat 2.5-2.5 mcg/actuation mist 2 puff inhalation QAM 0RF hydroxychloroquine 200 mg tablet 200 mg PO BID Qty: 180 0RF Hold Instructions: Doctor's Order atorvastatin 40 mg tablet 40 mg PO BEDTIME 0RF levothyroxine 137 mcg tablet 137 mcg PO QAM 0RF hydrocodone-acetaminophen 5-325 mg tablet 1 tab PO Q4H PRN (Reason: Pain) 0RF prednisone 5 mg tablet 5 mg PO QAM 0RF Calcium 500 500 mg calcium (1,250 mg) tablet,chewable 500 mg PO BID 0RF albuterol sulfate 90 mcg/actuation Hfa Aerosol Inhaler 2 puff INHALATION Q4H PRN (Reason: Shortness Of Breath) 0RF Prilosec OTC 20 mg Tablet,Delayed Release (Dr/Ec) 20 mg PO QAM 0RF Vitamin D3 125 mcg (5,000 unit) Tablet 125 mcg PO QAM 0RF leflunomide 20 mg tablet 20 mg PO QAM 0RF gabapentin 300 mg capsule 300 mg PO BID 0RF folic acid 1 mg tablet 1 mg PO QAM 0RF Actemra ACTPen 162 mg/0.9 mL pen injector 162 mg SUBCUT Q7D 0RF Rx Instructions: on sat Fosamax 70 mg tablet 70 mg PO Q7D 0RF Rx Instructions: on sat Discontinued diclofenac sodium 75 mg tablet,delayed release (DR/EC) 75 mg PO Q12H PRN (Reason: pain, moderate-severe ) Qty: 30 0RF Discharge Orders: Discharge Order (Routine); Ordered 10/27/21 Ordered By: Deepak Dowd Discharge Diet: Advance as tolerated Patient Instructions: Opioid Safety Activity Restrictions/Additional Instructions: Take all medicine as prescribed. Return for any concerns. Start bland diet. Use 21 mg nicotine patch first for 2 weeks then reduce to 14 mg. Follow-up with your primary care provider, and have liver function tests checked at that time. Follow-up with primary care provider in 3 to 5 days.. Your liver tests were slightly elevated at discharge. Your hepatitis panel was negative. Your CT scan of your abdomen and pelvis demonstrated no liver or gallbladder issues. Please have your liver tests checked again with your primary care provider. Discharge Attestations Time Spent in Discharge Care*: greater than 30 min Quality Metrics Clinical Quality Measures [ No reported AMI, CVA or VTE this stay] Coding Level of Care Code Acute Chg DC note Diagnoses Intractable vomiting R11.10 Acute kidney injury N17.9
== END 2021-10-27 14:00 | disposition home or self-care (01) ==
LOC: ER 07:05 → MEDSURG 08:08
PROVIDERS: Admitting Provider Internal Medicine; Emergency Provider Emergency Medicine; Visit Provider Internal Medicine
DX: R11.10 Vomiting, unspecified (principal); N17.9 Acute kidney failure, unspecified; J44.9 Chronic obstructive pulmonary disease, unspecified; E03.9 Hypothyroidism, unspecified; M81.0 Age-related osteoporosis without current pathological fracture
CPT/HCPCS: 36415; 74176; 80053; 80074; 81001; 82550; 83036; 83690; 83735; 84443; 85025; 86140; 87493; 87506; 87635; 96372; 99285; C9113; G0378; J1644; J2405; J3490; J7030; J7512

== ENCOUNTER → 2021-11-05 13:25 | Outpatient (BNVA) | payer OTHER, MEDICAID, SELFPAY | PROVIDERS: Visit Provider Internal Medicine Rheumatology | DX: G56.03 Carpal tunnel syndrome, bilateral upper limbs (principal); R79.89 Other specified abnormal findings of blood chemistry; M05.79 Rheumatoid arthritis with rheumatoid factor of multiple sites without organ or systems involvement; Z79.899 Other long term (current) drug therapy; Z71.89 Other specified counseling | CPT/HCPCS: 80076 ==

== ENCOUNTER → 2021-12-02 15:15 | Outpatient (BNVA) | payer MEDICAID, SELFPAY | PROVIDERS: PCP Clinical Nurse Specialist Adult Health; Referring Provider Internal Medicine Rheumatology; Visit Provider Specialist | DX: R20.0 Anesthesia of skin (principal); R20.2 Paresthesia of skin | CPT/HCPCS: 95910; 95912 ==

== ENCOUNTER 2021-12-14 14:19 | Outpatient (CLI) | payer MEDICAID, SELFPAY ==
--- NOTE | 2021-12-14 14:30 | US_ITS ---
WS: [id number] ULTRASOUND BREAST LEFT TECHNIQUE: Ultrasound left breast focused area of concern. CLINICAL INFORMATION: 6 MO F/U LT BREAST ULTRASOUND/LT ASYMMETRY COMPARISON: Ultrasound May 14, 2021 FINDINGS: Ultrasound subareolar LEFT breast at the nipple. Again seen is ductal ectasia similar in appearance t o the prior examination. No intraductal lesions. Incidental tiny benign cyst at the 9:00 position dana suring 3 mm. Findings have a benign appearance and recommend return to annual screening mammography. US/US breast LT limited* [id number] IMPRESSION: BI-RADS 2 benign Recommend return to annual screening mammography.
== END 2021-12-14 14:20 | disposition home or self-care (01) ==
PROVIDERS: PCP Clinical Nurse Specialist Adult Health; Visit Provider Clinical Nurse Specialist Adult Health
DX: R92.8 Other abnormal and inconclusive findings on diagnostic imaging of breast (principal)
CPT/HCPCS: 76642

== ENCOUNTER → 2022-01-11 07:53 | Outpatient (BNVA) | payer MEDICAID, SELFPAY | PROVIDERS: PCP Clinical Nurse Specialist Adult Health; Visit Provider Clinical Nurse Specialist Adult Health | DX: J44.9 Chronic obstructive pulmonary disease, unspecified (principal); M05.79 Rheumatoid arthritis with rheumatoid factor of multiple sites without organ or systems involvement; E03.9 Hypothyroidism, unspecified | CPT/HCPCS: 80053; 80061; 84443; 85025 ==

== ENCOUNTER → 2022-01-20 09:12 | Outpatient (BNVA) | payer MEDICAID, SELFPAY | PROVIDERS: PCP Clinical Nurse Specialist Adult Health; Visit Provider Obstetrics & Gynecology | DX: R32 Unspecified urinary incontinence (principal) | CPT/HCPCS: 81000 ==

== ENCOUNTER 2022-03-22 12:32 | Outpatient (CLI) | payer MEDICAID, SELFPAY ==
[2022-03-22 12:50] VITALS: BP 135/79; PULSE 71; RESP 18; TEMP 37; O2SAT 98
[2022-03-22 13:10] LABS: Basophils # 0.1 10^3/uL (0.0-0.1); Basophils % 0.8 %; Eosinophils # 0.2 10^3/uL (0.0-0.8); Eosinophils % 1.2 %; Hematocrit 40.1 % (37.0-47.0); Hemoglobin 13.3 g/dL (11.5-15.3); Lymphocytes % 21.5 %; Mean Corpuscular HGB Conc 33.2 g/dL (30.0-36.0); Mean Corpuscular Hemoglobin 32.3 pg (28.0-34.0); Mean Corpuscular Volume 97.3 fl (81-99); Monocytes # 0.9 10^3/uL (0.2-0.9); Monocytes % 6.2 %; Neutrophils # 9.78 10^3/uL (1.8-7.7); Neutrophils % 69.4 %; Nucleated Red Blood Cells % 0 %; Platelet Count 352 10^3/cmm (130-400); Red Blood Count 4.12 10^6/uL (4.1-5.3); Red Cell Distribution Width 13.2 % (12.1-15.1); White Blood Count 14.1 10^3/uL (4.0-10.0)
[2022-03-22] MEDS: sodium chloride 0.9% 250 ML 50 ML IV (13:19)
[2022-03-22] MEDS: acetaminophen 325 mg Tablet 650 MG PO (13:20)
[2022-03-22] MEDS: diphenhydrAMINE 50 mg/mL SDV 1mL 25 MG IVP ×2 (13:21→14:27)
[2022-03-22 13:37] LABS: Alanine Aminotransferase < 5 U/L (0-33); Albumin Level 3.7 g/dL (3.5-5.2); Alkaline Phosphatase 80 U/L (35-105); Aspartate Amino Transferase 11 U/L (0-32); Globulin 3.2 g/dL (1.3-4.6); Glomerular Filtration Rate 56.6 mL/min (90-130); Total Bilirubin 0.2 mg/dL (0.15-1.2); Total Protein 6.9 g/dL (6.6-8.7)
[2022-03-22 13:40] LABS: Erythrocyte Sedimentation Rate 15 mm/hr (0-15)
[2022-03-22 14:59] VITALS: BP 125/75; PULSE 64; RESP 18; TEMP 36.3; O2SAT 97
[2022-03-22 15:19] VITALS: BP 124/76; PULSE 63; RESP 18; TEMP 36.7; O2SAT 95
== END 2022-03-22 12:33 | disposition home or self-care (01) ==
PROVIDERS: PCP Clinical Nurse Specialist Adult Health; Visit Provider Internal Medicine Rheumatology
DX: M05.79 Rheumatoid arthritis with rheumatoid factor of multiple sites without organ or systems involvement (principal)
CPT/HCPCS: 80076; 82565; 85025; 85651; 96365; 96375; A4222; J0129; J1200; J2920; J7050

== ENCOUNTER 2022-04-08 08:48 | Outpatient (CLI) | payer MEDICAID, SELFPAY ==
[2022-04-08 08:57] VITALS: BP 148/87; PULSE 74; RESP 18; TEMP 36.3; O2SAT 97
[2022-04-08] MEDS: sodium chloride 0.9% 250 ML 50 ML IV (09:26)
[2022-04-08] MEDS: acetaminophen 325 mg Tablet 650 MG PO (09:27)
[2022-04-08] MEDS: diphenhydrAMINE 50 mg/mL SDV 1mL IVP (09:28)
[2022-04-08 10:47] VITALS: BP 159/76; PULSE 67; RESP 18; TEMP 36.2; O2SAT 98
== END 2022-04-08 08:49 | disposition home or self-care (01) ==
PROVIDERS: PCP Clinical Nurse Specialist Adult Health; Visit Provider Internal Medicine Rheumatology
DX: M05.79 Rheumatoid arthritis with rheumatoid factor of multiple sites without organ or systems involvement (principal)
CPT/HCPCS: A4222; J0129; J1200; J2920; J7050

== ENCOUNTER 2022-04-21 10:49 | Outpatient (CLI) | payer MEDICAID, SELFPAY ==
[2022-04-21 11:20] VITALS: BP 134/82; PULSE 77; RESP 18; TEMP 36.8; O2SAT 96
[2022-04-21] MEDS: sodium chloride 0.9% 250 ML 50 ML IV (12:10)
[2022-04-21] MEDS: acetaminophen 325 mg Tablet 650 MG PO (12:12)
[2022-04-21] MEDS: diphenhydrAMINE 50 mg/mL SDV 1mL IVP (12:13)
[2022-04-21 13:10] VITALS: BP 133/78; PULSE 78; RESP 18; TEMP 36.7; O2SAT 97
== END 2022-04-21 10:50 | disposition home or self-care (01) ==
PROVIDERS: PCP Clinical Nurse Specialist Adult Health; Visit Provider Internal Medicine Rheumatology
DX: M06.9 Rheumatoid arthritis, unspecified (principal)
CPT/HCPCS: 96365; 96375; A4222; J0129; J1200; J2920; J7050

== ENCOUNTER 2022-05-03 10:20 | Inpatient (IN) | payer MEDICAID, SELFPAY ==
[2022-05-03] VITALS (8 sets, daily range): BP systolic 96–163; BP diastolic 51–70; PULSE 71–93; RESP 15–20; TEMP 36.5–36.9; O2SAT 93–97
--- NOTE | 2022-05-03 10:59 | W.ED.FEVER ---
HPI - Fever General: Chief Complaint: Fever Stated Complaint: Covid symptoms, possible infection Time Seen by Provider: 05/03/22 10:59 History of Present Illness: Ms. Dominguez is a 62-year-old female with significant past medical history of rheumatoid arthritis, thyroid disorder, COPD presenting to the emergency department due to generalized illness. She reports onset of symptoms subacutely approximately 1 week ago. She endorses chills, generalized malaise, aches, cough, nausea without vomiting. Also notes low back pain. Intensity symptoms is moderate to severe. Course is worsened. She does note recently changing to [place], has been on methotrexate as well. Also approximately 2 weeks postop from urethral sling procedure. Reports well-healing incisions. She did have episode of incontinence of urine last night though also has a history of urinary incontinence. No other specific changes in health, exacerbating, or alleviating factors identified. Onset (ago): day(s) Context: recent procedure and on immunosuppressant(s) Exacerbating factors: nothing Relieving factors: nothing Associated symptoms: Reports chills, cough, myalgias and nausea Review of Systems General: Reports: 10 or more systems reviewed and unremarkable except in HPI and below Const: Reports: chills GI: Reports: nausea PFSH ED PFSH: Medical History Bilateral carpal tunnel syndrome COPD (chronic obstructive pulmonary disease) Depression with anxiety Dyslipidemia Fall GERD (gastroesophageal reflux disease) High risk medication use Hypothyroid Mixed incontinence Osteoporosis Seropositive rheumatoid arthritis of multiple sites Tobacco dependency Surgical History History of bladder suspension procedure (03/2022) History of hysterectomy History of tubal ligation Hx of bladder repair surgery cystocele repair Hx of section Family History Sister , 46 Breast cancer Mother Hypercholesteremia Thyroid disease Diabetes Sister , 24 Breast cancer Family/Other Breast cancer paternal and maternal aunts, several cousins Other Hypertension Denies family history of Colon cancer Ovarian cancer Heart disease Uterine cancer Stroke Social History Smoking and tobacco status: current every day smoker cigarettes [ Other cigarette details: 40 pack year history] Alcohol intake: current Alcohol intake frequency: holidays/special occasions only Physical Exam Const: COMMON NORMALS: alert GENERAL APPEARANCE: cooperative, well developed and ill appearing (Mildly) HENMT: COMMON NORMALS: normocephalic and atraumatic HEAD & SCALP: normocephalic and atraumatic THROAT: posterior oropharynx normal Eye: COMMON NORMALS: conjunctivae normal CONJUNCTIVA: Yes conjunctivae normal SCLERA: sclerae normal Neck/C-Spine: COMMON NORMALS: supple GENERAL: Yes trachea midline Resp: COMMON NORMALS: clear to auscultation bilaterally EFFORT & INSPECTION: Yes able to speak in complete sentences AUSCULTATION: clear to auscultation bilaterally Cardio: COMMON NORMALS: regular rate and regular rhythm RATE: regular rate RHYTHM: regular rhythm GI: COMMON NORMALS: Soft to palpation PALPATION: Yes Soft to palpation and No Tenderness to palpation present (GI) Back/Pelvis: OTHER: Mid to lower L-spine paraspinal and spinal tenderness palpation Extremity: GENERAL: Yes normal exam except as noted and No edema Neuro: COMMON NORMALS: moves all extremities SENSORIUM/ORIENTATION: Yes alert and No Orientation impaired Psych: COMMON NORMALS: mental status grossly normal and Normal thought process present THOUGHT PROCESS: Normal thought process present Course Vital Signs: Vital signs: Vital Signs Temperature 97.3 F L 05/06/22 07:52 Pulse Rate 57 L 05/06/22 07:52 Respiratory Rate 16 05/06/22 07:52 Blood Pressure 125/73 05/06/22 07:52 Pulse Oximetry 97 05/06/22 07:52 Oxygen Delivery Me thod 05/06/22 07:52 MDM - Fever Medical Decision Making 62-year-old lady on chronic steroids and immunosuppressive medications for rheumatoid arthritis presenting with generalized illness. Patient somewhat ill-appearing on exam Labs notable for leukocytosis, normal hemoglobin. Metabolic panel with mild dehydration. Urinalysis concerning for urinary tract infection. Viral panel negative. Chest x-ray with minimal bilateral prominence however no lobar consolidation or pneumothorax. CT imaging notable for pyelonephritis. Most likely cause of patient symptoms is a pyelonephritis in the context of immunosuppression. During ED course patient treated with antibiotics, fluids, antiemetic, analgesia. The results of ED evaluation were discussed with the patient including plan for admission due to requirement for level of care not available if discharged to prevent significant worsening/deterioration. Patient agreeable with plan. Discussed with hospitalist service who was agreeable to admit patient. Medical Records I reviewed the patient's medical records. Lab Data I reviewed the patient's lab results. 05/03/22 11:19 05/03/22 11:19 Radiology Impressions Chest X-Ray 05/03/22 11:08 IMPRESSION: Recommend clinical correlation for possibility of early interstitial edema as noted above. Abdomen/Pelvis CT 05/03/22 12:23 IMPRESSION: 1. Moderate to severe acute RIGHT pyelonephritis. There is delayed enhancement with renal enlargement and perinephric stranding. Most significant changes in the lower pole with a focal area of acute nephritis. 2. No renal obstruction. 3. LEFT kidney is negative for pyelonephritis. 4. Small retroperitoneal lymph nodes. 5. Normal appendix. Laboratory Results WBC 16.4 10^3/uL (4.0-10.0) H 05/03/22 11:19 RBC 4.11 10^6/uL (4.1-5.3) 05/03/22 11:19 Hgb 12.8 g/dL (11.5-15.3) 05/03/22 11:19 Hct 37.9 % (37.0-47.0) 05/03/22 11:19 MCV 92.2 fl (81-99) 05/03/22 11:19 MCH 31.1 pg (28.0-34.0) 05/03/22 11:19 MCHC 33.8 g/dL (30.0-36.0) 05/03/22 11:19 RDW 13.1 % (12.1-15.1) 05/03/22 11:19 Plt Count 332 10^3/cmm (130-400) 05/03/22 11:19 MPV 11.3 fL (7.4-10.4) H 05/03/22 11:19 Neut % (Auto) 71.7 % 05/03/22 11:19 Lymph % (Auto) 17.2 % 05/03/22 11:19 [place] % (Auto) 9.6 % 05/03/22 11:19 Eos % (Auto) 0.2 % 05/03/22 11:19 Baso % (Auto) 0.6 % 05/03/22 11:19 Neut # (Auto) 11.75 10^3/uL (1.8-7.7) H 05/03/22 11:19 Lymph # (Auto) 2.8 10^3/uL (0.8-4.8) 05/03/22 11:19 [place] # (Auto) 1.6 10^3/uL (0.2-0.9) H 05/03/22 11:19 Eos # (Auto) 0.0 10^3/uL (0.0-0.8) 05/03/22 11:19 Baso # (Auto) 0.1 10^3/uL (0.0-0.1) 05/03/22 11:19 Nucleated RBC % (auto) 0 % 05/03/22 11:19 Nucleated RBCs # 0.0 /100WBC 05/03/22 11:19 Sodium 133 mmol/L (136-145) L 05/03/22 11:19 Potassium 3.5 mmol/L (3.5-5.1) 05/03/22 11:19 Chloride 95 mmol/L (98-107) L 05/03/22 11:19 Carbon Dioxide 23 mmol/L (22-29) 05/03/22 11:19 Anion Gap 18.5 (5-19) 05/03/22 11:19 BUN 9 mg/dL (8-23) 05/03/22 11:19 Creatinine 1.0 mg/dL (0.5-0.9) H 05/03/22 11:19 GFR Calculation 56.6 mL/min (90-130) L 05/03/22 11:19 Glucose 90 mg/dL (65-115) 05/03/22 11:19 Calculated Osmolality 274 mOsm/kg (285-295) L 05/03/22 11:19 Lactic Acid 1.1 mmol/L (0.5-2.2) 05/03/22 11:19 Calcium 9.5 mg/dL (8.5-10.5) 05/03/22 11:19 Total Bilirubin 0.5 mg/dL (0.15-1.2) 05/03/22 11:19 AST 12 U/L (0-32) 05/03/22 11:19 ALT 9 U/L (0-33) 05/03/22 11:19 Alkaline Phosphatase 106 U/L (35-105) H 05/03/22 11:19 C-Reactive Protein 173.1 mg/L (0.0-4.9) H 05/03/22 11:19 NT-Pro-B Natriuret Pep 123 pg/mL (0-125) 05/03/22 11:19 Total Protein 7.6 g/dL (6.6-8.7) 05/03/22 11:19 Albumin 3.5 g/dL (3.5-5.2) 05/03/22 11:19 Globulin 4.1 g/dL (1.3-4.6) 05/03/22 11:19 Procalcitonin 0.25 ng/mL (0-0.5) 05/03/22 11:19 Urine Color [place] (Yellow) 05/03/22 13:10 Urine Appearance Clear (CLEAR) 05/03/22 13:10 Urine pH 5 (5-7) 05/03/22 13:10 Ur Specific [place] 1.015 (1.005-1.030) 05/03/22 13:10 Urine Protein Trace (Negative) 05/03/22 13:10 Urine Glucose (UA) Norm (Normal) 05/03/22 13:10 Urine Ketones Negative (Negative) 05/03/22 13:10 Urine Blood Neg (Negative) 05/03/22 13:10 Urine Nitrate Positive (Negative) H 05/03/22 13:10 Urine Bilirubin Neg (Negative) 05/03/22 13:10 Urine Urobilinogen Norm mg/dL (Negative) 05/03/22 13:10 Ur Leukocyte Esterase 2+ (Negative) H 05/03/22 13:10 Urine RBC 0-4 /hpf (0-2) H 05/03/22 13:10 Urine WBC Too numerous to cnt /hpf (0-5) H 05/03/22 13:10 Ur Squamous Epith Cells 0-4 /hpf (0-5) H 05/03/22 13:10 Amorphous Sediment Not Reportable 05/03/22 13:10 Urine Bacteria 4+ /hpf (NONE) H 05/03/22 13:10 Nasal Influ A H1 2008 PCR Not detected (NOT DETECT) 05/03/22 11:50 Adenovirus (PCR) Not detected (NOT DETECT) 05/03/22 11:50 C. pneumoniae DNA (PCR) Not detected (NOT DETECT) 05/03/22 11:50 Coronavirus 229E (PCR) Not detected (NOT DETECT) 05/03/22 11:50 Human Metapneumovir PCR Not detected (NOT DETECT) 05/03/22 11:50 Influenza A (H1) PCR Not detected (NOT DETECT) 05/03/22 11:50 Influenza A (H3) PCR Not detected (NOT DETECT) 05/03/22 11:50 Influenza Type A (PCR) Not detected (NOT DETECT) 05/03/22 11:50 Influenza Type B (PCR) Not detected (NOT DETECT) 05/03/22 11:50 M. pneumoniae (PCR) Not detected (NOT DETECT) 05/03/22 11:50 Parainfluenza 1 (PCR) Not detected (NOT DETECT) 05/03/22 11:50 Parainfluenza 2 (PCR) Not detected (NOT DETECT) 05/03/22 11:50 Parainfluenza 3 (PCR) Not detected (NOT DETECT) 05/03/22 11:50 Parainfluenza 4 (PCR) Not detected (NOT DETECT) 05/03/22 11:50 RSV Type A (PCR) Not detected (NOT DETECT) 05/03/22 11:50 RSV Type B (PCR) Not detected (NOT DETECT) 05/03/22 11:50 Entero/Rhino (PCR) Not detected (NOT DETECT) 05/03/22 11:50 SARS-CoV-2 (PCR) Not detected (NOT DETECT) 05/03/22 11:50 Discharge Plan Discharge Patient Disposition: Placed in Observation Admit Provider: Sada Albarado Clinical Impression: Pyelonephritis Discharge Diet: Advance as tolerated and Usual diet Discharge Activity: Resume usual activity and Increase activity as tolerated Coding Level of Care Code ED Senior Project Accountant for Chg Fwd Exam Comprehensive
--- NOTE | 2022-05-03 11:08 | XR_ITS ---
WS: [id number] EXAMINATION: XR chest 1V portable [id number] REASON FOR EXAM: cough COMPARISON: None available. ORDER DATE: 05/03/2022 11:11 AM TECHNIQUE: A single, portable frontal chest x-ray was obtained. X-RAY FINDINGS: There is a diffuse perihilar basal pattern interstitial thickening which probably represents intersti tial edema although no prior x-rays exams are available for comparison for possible underlying chroni c changes. Pleural spaces are clear. No pleural effusions or pneumothorax. Cardiomediastinal silhouette is normal. No tubes or lines are present. XR/XR chest 1V portable [id number] IMPRESSION: Recommend clinical correlation for possibility of early interstitial edema as noted above.
[2022-05-03 11:35] LABS: Basophils # 0.1 10^3/uL (0.0-0.1); Basophils % 0.6 %; Eosinophils % 0.2 %; Hematocrit 37.9 % (37.0-47.0); Hemoglobin 12.8 g/dL (11.5-15.3); Lymphocytes # 2.8 10^3/uL (0.8-4.8); Lymphocytes % 17.2 %; Mean Corpuscular HGB Conc 33.8 g/dL (30.0-36.0); Mean Corpuscular Hemoglobin 31.1 pg (28.0-34.0); Mean Corpuscular Volume 92.2 fl (81-99); Mean Platelet Volume 11.3 fL (7.4-10.4); Monocytes # 1.6 10^3/uL (0.2-0.9); Monocytes % 9.6 %; Neutrophils # 11.75 10^3/uL (1.8-7.7); Neutrophils % 71.7 %; Nucleated Red Blood Cells % 0 %; Platelet Count 332 10^3/cmm (130-400); Red Blood Count 4.11 10^6/uL (4.1-5.3); Red Cell Distribution Width 13.1 % (12.1-15.1); White Blood Count 16.4 10^3/uL (4.0-10.0)
[2022-05-03] MEDS: sodium chloride 0.9% 1,000 ML 999 ML IV (11:41)
[2022-05-03] MEDS: ondansetron 2 mg/ML SDV 2 mL 4 MG IVP (11:41)
[2022-05-03] MEDS: morphine 4 mg/mL SDV 1 mL IVP (11:42)
[2022-05-03 11:57] LABS: Lactic Sepsis W/Reflex 1.1 mmol/L (0.5-2.2)
[2022-05-03 12:06] LABS: Procalcitonin 0.25 ng/mL (0-0.5)
[2022-05-03 12:07] LABS: NT Pro B Type Natriuretic Pept 123 pg/mL (0-125)
[2022-05-03 12:18] LABS: Alanine Aminotransferase 9 U/L (0-33); Albumin Level 3.5 g/dL (3.5-5.2); Alkaline Phosphatase 106 U/L (35-105); Anion Gap 18.5 (5-19); Aspartate Amino Transferase 12 U/L (0-32); Blood Urea Nitrogen 9 mg/dL (8-23); C Reactive Protein 173.1 mg/L (0.0-4.9); Calcium 9.5 mg/dL (8.5-10.5); Carbon Dioxide 23 mmol/L (22-29); Chloride 95 mmol/L (98-107); Globulin 4.1 g/dL (1.3-4.6); Glomerular Filtration Rate 56.6 mL/min (90-130); Glucose 90 mg/dL (65-115); Osmolality Calculated 274 mOsm/kg (285-295); Potassium 3.5 mmol/L (3.5-5.1); Sodium 133 mmol/L (136-145); Total Bilirubin 0.5 mg/dL (0.15-1.2); Total Protein 7.6 g/dL (6.6-8.7)
--- NOTE | 2022-05-03 12:23 | CT_ITS ---
WS: [id number] CT ABDOMEN AND PELVIS WITH CONTRAST HISTORY: fever, leukocytosis, recent urethral sling procedure TECHNIQUE: Imaging performed of the abdomen and pelvis with IV contrast. Single phase imaging of the abdomen. Coronal and sagittal reformats are submitted. All CT scans at [facility] use at [address] one of these dose optimization techniques: automated exposure control; mA and/or kV adjustment per patient size (includes targeted exams where dose is matched to clinical indication); or iterative re construction. IV CONTRAST: Omnipaque 350; 95 mL IV. Oral contrast: No DLP: 485.87 mGy.cm COMPARISON: 10/26/2021 Lower thorax: Lung bases are clear. Small pericardial effusion. Small hiatal hernia. Liver/biliary system: Normal size with no intrahepatic dilatation. Gallbladder: Normal. No gallstones or wall thickening. No pericholecystic fluid. Pancreas: Normal size pancreas and pancreatic duct. No adjacent inflammation. Spleen: Normal size spleen. Lobulated low-attenuation nodule in the superior spleen is unchanged. Adrenal glands: Normal. Right kidney: Delayed enhancement with enlargement and moderate perinephric stranding. Most significa nt delayed enhancement involves the lower pole. Left kidney: Mild perinephric stranding. Normal diffuse enhancement. Cyst lower pole cortex 0.6 cm. Aorta: Moderate atherosclerosis with no aneurysm. Lymphadenopathy: None. Small retroperitoneal. Free fluid: None. GI tract: Negative stomach. No small bowel obstruction. The appendix is normal. There are a few dista l colonic diverticula without acute diverticulitis. Abdominal wall: Unremarkable abdominal wall. No hernia. Pelvis: Nondistended urinary bladder with mild diffuse wall thickening measuring up to 8 mm. There is no fluid collection. Postsurgical changes are noted near the distal urethra. There are numerous surg ical clips. No mass or abscess. Bones: Mild degenerative joint disease at the hips. CT/CT abdomen pelvis w con* [id number] IMPRESSION: 1. Moderate to severe acute RIGHT pyelonephritis. There is delayed enhancement with renal enlargement and perinephric stranding. Most significant changes in the lower pole with a focal area of acute nephritis. 2. No renal obstruction. 3. LEFT kidney is negative for pyelonephritis. 4. Small retroperitoneal lymph nodes. 5. Normal appendix.
[2022-05-03] MEDS: iohexol 350 mg/mL 500 mL Btl (per mL) IV (13:05)
[2022-05-03 13:25] LABS: Protein Urine Trace (Negative); Specific Gravity, Urine 1.015 (1.005-1.030); Urine Appearance Clear (CLEAR); Urine Color Amber (Yellow); pH Urine 5 (5-7)
[2022-05-03 13:26] LABS: Add Urine Microscopic? YES; Bilirubin Urine Neg (Negative); Blood Urine Neg (Negative); Glucose Urine UA Norm (Normal); Ketones Urine Negative (Negative); Leukocyte Esterase Urine 2+ (Negative); Nitrate Urine Positive (Negative); Urobilinogen Urine Norm (Negative)
[2022-05-03 13:30] LABS: Bacteria Urine 4+ /hpf; RBC Urine 0-4 /hpf (0-2); Squamous Epithelial Cell Urine 0-4 /hpf (0-5); WBC Urine TOO NUMEROUS TO CNT /hpf (0-5)
[2022-05-03 13:31] LABS: Add Urine Culture? Yes
[2022-05-03 13:44] LABS: Adenovirus Not Detected (NOT DETECT); Chlamydia Pneumoniae Not Detected (NOT DETECT); Coronavirus 229E,HKU1,NL63,OC4 Not Detected (NOT DETECT); Human Metapneumovirus Not Detected (NOT DETECT); Human Rhinovirus/Enterovirus Not Detected (NOT DETECT); Influenza A Not Detected (NOT DETECT); Influenza A H1 Not Detected (NOT DETECT); Influenza A H1-2009 Not Detected (NOT DETECT); Influenza A H3 Not Detected (NOT DETECT); Influenza B Not Detected (NOT DETECT); Mycoplasma Pneumoniae Not Detected (NOT DETECT); Parainfluenza Virus Type 1 Not Detected (NOT DETECT); Parainfluenza Virus Type 2 Not Detected (NOT DETECT); Parainfluenza Virus Type 3 Not Detected (NOT DETECT); Parainfluenza Virus Type 4 Not Detected (NOT DETECT); Respiratory Syncytial Virus A Not Detected (NOT DETECT); Respiratory Syncytial Virus B Not Detected (NOT DETECT); SARS-COV-2 Not Detected (NOT DETECT)
[2022-05-03] MEDS: cefTRIAXone 1,000 MG in sodium chloride 0.9% (plus) 50 ML 100 MG IV (13:46)
--- NOTE | 2022-05-03 15:08 | P.HP_ITS ---
Providers/Chief Complaint Admitting Physician: Sada Albarado MD Primary Care Provider: Aubrey Shore Chief Complaint: Covid symptoms, possible infection History of Present Illness Sabrina Dominguez is a 62 year old female who presented to the emergency room with chief complaint of not feeling well. Symptoms have been going on for about a week or so. The first thing that she noticed was extreme fatigue and generalized aches predominantly in her back. She has a history of rheumatoid arthritis and thought she was entering an arthritic flare at first. From the back pain she started having more widespread body aches. She has had decrease in her appetite, nausea but no recent vomiting, worsening dysuria and urinary frequency without any hematuria. She felt feverish maybe 5 days ago but none since then. It should be noted that Mrs. Dominguez underwent a sling procedure a bout 2 weeks ago at [facility]. She had had prior bladder repair for cystocele necessitating more specialized management this time. She had been doing well postoperatively at first. Was not discharged on any antibiotic coverage. With progressive malaise, lack of oral intake and severity of the back pain she presented today for further evaluation. Work-up in the emergency room revealed significant leukocytosis, abnormal urinalysis and CT findings consistent with pyelonephritis. She does not have a history of pyelonephritis previously. It should be noted that Mrs. Dominguez is chronically immunosuppressed due to her rheumatoid arthritis. She is on Orencia with her last dosed received the week prior to or after her surgery. She has also Arava and Plaquenil. Last course of steroids was in February when she had her last flare prior to initiating Orencia. Next dose of Orencia is due at the end of this month. In addition to abnormalities already noted, patient had a CRP of 173, up from prior values that were around 5. She received Rocephin in the ER and is being admitted for [facility] given high risk of rapid clinical decline with her comorbid medical issues. Review of Systems Const: Reports: fever(s), chills, body aches, change in appetite, fatigue and malaise ENMT: Reports: ear discharge (Ear infection has resolved); Denies: throat pain or nasal congestion Card: Denies: chest pain, palpitations or edema Resp: Reports: dyspnea, productive cough and non-productive cough; Denies: hemoptysis GI: Reports: abdominal pain, nausea and change in bowel habits (Stools are so fter than usual but not what she would describe as diarrhea); Denies: vomiting or hematochezia : Reports: flank pain, difficulty voiding, dysuria and urinary frequency; Denies: hematuria Musc: Reports: back pain, joint pain and muscle weakness; Denies: joint swelling, joint redness or joint warmth Skin/Breast: Denies: rash or sores Neuro: Reports: numbness in extremities (Predominantly in the hands; normal nerve conduction study in November 2021) and weakness in extremities (General rather than focal); Denies: difficulty walking Taurus/Lymph: Denies: easy bruising or easy bleeding Medications/Allergies Home Medications Medication Instructions Recorded Confirmed Last Taken Type sertraline 25 mg tablet (Zoloft) 25 mg PO QAM 09/28/19 05/03/22 04/30/22 History albuterol sulfate 90 mcg/actuation 2 puff inhalation Q4H PRN 10/26/21 05/03/22 Unknown History aerosol inhaler Shortness Of Breath alendronate 70 mg tablet (Fosamax) 70 mg PO Q7D 10/26/21 05/03/22 05/01/22 History atorvastatin 40 mg tablet 40 mg PO BEDTIME 10/26/21 05/03/22 04/30/22 History calcium carbonate 500 mg calcium 500 mg PO BID 10/26/21 05/03/22 04/30/22 History (1,250 mg) chewable tablet (Calcium 500) cholecalciferol (vitamin D3) 125 125 mcg PO QAM 10/26/21 05/03/22 04/30/22 History mcg (5,000 unit) tablet (Vitamin D3) folic acid 1 mg tablet 1 mg PO QAM 10/26/21 05/03/22 04/30/22 History levothyroxine 137 mcg tablet 137 mcg PO QAM 10/26/21 05/03/22 04/30/22 History alprazolam 0.5 mg tablet 0.5 mg PO TID PRN anxiety #30 tabs 12/23/21 05/03/22 Unknown Rx umeclidinium 62.5 mcg-vilanterol 1 inh inhalation Q24H #60 ea 01/06/22 05/03/22 Unknown Rx 25 mcg/actuation powdr for inhalation (Anoro Ellipta) oxybutynin chloride 5 mg 5 mg PO DAILY #30 tabs 01/20/22 05/03/22 04/30/22 Rx tablet,extended release 24 hr gabapentin 300 mg capsule 1,200 mg PO BID #120 caps 03/10/22 05/03/22 04/30/22 Rx hydroxychloroquine 200 mg tablet 200 mg PO BID #180 tabs 03/10/22 05/03/22 04/30/22 Rx leflunomide 10 mg tablet 10 mg PO DAILY #90 tabs 03/10/22 05/03/22 04/30/22 Rx pantoprazole 40 mg tablet,delayed 40 mg PO DAILY #90 tabs 03/10/22 05/03/22 04/30/22 Rx release hydrocodone 5 mg-acetaminophen 325 See Rx Instructions .Route 05/03/22 05/03/22 Unknown History mg tablet .COMPLEX PRN pain prednisone 5 mg tablet 15 mg PO QAM PRN flare up 05/03/22 05/03/22 Unknown History Allergies Allergy/AdvReac Type Severity Reaction Status Date / Time meperidine [From Demerol] Allergy vomiting Verified 03/15/22 08:40 PFSH Acute PFSH: Medical History (Updated 05/03/22 @ 19:14 by Sada Albarado MD) Bilateral carpal tunnel syndrome COPD (chronic obstructive pulmonary disease) Depression with anxiety Dyslipidemia Fall GERD (gastroesophageal reflux disease) High risk medication use Hypothyroid Mixed incontinence Osteoporosis Seropositive rheumatoid arthritis of multiple sites Tobacco dependency Surgical History (Updated 05/03/22 @ 15:55 by Sada Albarado MD) History of bladder suspension procedure (03/2022) History of hysterectomy History of tubal ligation Hx of bladder repair surgery cystocele repair Hx of section Family History (Updated 05/03/22 @ 15:32 by Sada Albarado MD) Sister , 46 Breast cancer Mother Hypercholesteremia Thyroid disease Diabetes Sister , 24 Breast cancer Family/Other Breast cancer paternal and maternal aunts, several cousins Other Hypertension Denies family history of Colon cancer Ovarian cancer Heart disease Uterine cancer Stroke Social History (Updated 05/03/22 @ 15:34 by Sada Albarado MD) Smoking and tobacco status: current every day smoker cigarettes [ Other cigarette details: 40 pack year history] Alcohol intake: current Alcohol intake frequency: holidays/special occasions only Substance/Drug Use: never Vitals/I&O/Wt Last Vital Signs Temp 98.4 F 05/03/22 10:35 Pulse 93 05/03/22 10:35 Resp 20 H 05/03/22 11:42 BP 113/70 05/03/22 10:35 Pulse Ox 97 05/03/22 10:35 Weight last 48 hrs Weight 70.307 kg Physical Exam Narrative: Constitutional: Awake and alert, acutely ill-appearing, able to provide history, covered in blankets HEENT: Normocephalic, atraumatic, pupils are equally reactive, extraocular mov ements intact, nasopharynx is clear, oropharynx with dry mucous membranes but otherwise clear Neck: Supple Respiratory: Clear to auscultation bilaterally without any rales rhonchi or wheezes Cardiovascular: Regular rate and rhythm, no murmurs or rubs Abdomen: Soft, significant right flank tenderness with guarding, lesser flank tenderness on the left, positive bowel sounds Extremities: No pretibial edema, palpable wrist, elbows, ankles and knees without grossly apparent acute synovitis Skin: Dry, no acute rashes Neuro: Speech clear, face symmetric, moves all extremities Psych: Normal affect Data 05/03/22 11:19 05/03/22 11:19 Other Labs: Radiology Impressions Chest X-Ray 05/03/22 11:08 IMPRESSION: Recommend clinical correlation for possibility of early interstitial edema as noted above. Abdomen/Pelvis CT 05/03/22 12:23 IMPRESSION: 1. Moderate to severe acute RIGHT pyelonephritis. There is delayed enhancement with renal enlargement and perinephric stranding. Most significant changes in the lower pole with a focal area of acute nephritis. 2. No renal obstruction. 3. LEFT kidney is negative for pyelonephritis. 4. Small retroperitoneal lymph nodes. 5. Normal appendix. Laboratory Results WBC 16.4 10^3/uL (4.0-10.0) H 05/03/22 11:19 RBC 4.11 10^6/uL (4.1-5.3) 05/03/22 11:19 Hgb 12.8 g/dL (11.5-15.3) 05/03/22 11:19 Hct 37.9 % (37.0-47.0) 05/03/22 11:19 MCV 92.2 fl (81-99) 05/03/22 11:19 MCH 31.1 pg (28.0-34.0) 05/03/22 11:19 MCHC 33.8 g/dL (30.0-36.0) 05/03/22 11:19 RDW 13.1 % (12.1-15.1) 05/03/22 11:19 Plt Count 332 10^3/cmm (130-400) 05/03/22 11:19 MPV 11.3 fL (7.4-10.4) H 05/03/22 11:19 Neut % (Auto) 71.7 % 05/03/22 11:19 Lymph % (Auto) 17.2 % 05/03/22 11:19 [place] % (Auto) 9.6 % 05/03/22 11:19 Eos % (Auto) 0.2 % 05/03/22 11:19 Baso % (Auto) 0.6 % 05/03/22 11:19 Neut # (Auto) 11.75 10^3/uL (1.8-7.7) H 05/03/22 11:19 Lymph # (Auto) 2.8 10^3/uL (0.8-4.8) 05/03/22 11:19 [place] # (Auto) 1.6 10^3/uL (0.2-0.9) H 05/03/22 11:19 Eos # (Auto) 0.0 10^3/uL (0.0-0.8) 05/03/22 11:19 Baso # (Auto) 0.1 10^3/uL (0.0-0.1) 05/03/22 11:19 Nucleated RBC % (auto) 0 % 05/03/22 11:19 Nucleated RBCs # 0.0 /100WBC 05/03/22 11:19 Sodium 133 mmol/L (136-145) L 05/03/22 11:19 Potassium 3.5 mmol/L (3.5-5.1) 05/03/22 11:19 Chloride 95 mmol/L (98-107) L 05/03/22 11:19 Carbon Dioxide 23 mmol/L (22-29) 05/03/22 11:19 Anion Gap 18.5 (5-19) 05/03/22 11:19 BUN 9 mg/dL (8-23) 05/03/22 11:19 Creatinine 1.0 mg/dL (0.5-0.9) H 05/03/22 11:19 GFR Calculation 56.6 mL/min (90-130) L 05/03/22 11:19 Glucose 90 mg/dL (65-115) 05/03/22 11:19 Calculated Osmolality 274 mOsm/kg (285-295) L 05/03/22 11:19 Lactic Acid 1.1 mmol/L (0.5-2.2) 05/03/22 11:19 Calcium 9.5 mg/dL (8.5-10.5) 05/03/22 11:19 Total Bilirubin 0.5 mg/dL (0.15-1.2) 05/03/22 11:19 AST 12 U/L (0-32) 05/03/22 11:19 ALT 9 U/L (0-33) 05/03/22 11:19 Alkaline Phosphatase 106 U/L (35-105) H 05/03/22 11:19 C-Reactive Protein 173.1 mg/L (0.0-4.9) H 05/03/22 11:19 NT-Pro-B Natriuret Pep 123 pg/mL (0-125) 05/03/22 11:19 Total Protein 7.6 g/dL (6.6-8.7) 05/03/22 11:19 Albumin 3.5 g/dL (3.5-5.2) 05/03/22 11:19 Globulin 4.1 g/dL (1.3-4.6) 05/03/22 11:19 Procalcitonin 0.25 ng/mL (0-0.5) 05/03/22 11:19 Urine Color Hetal (Yellow) 05/03/22 13:10 Urine Appearance Clear (CLEAR) 05/03/22 13:10 Urine pH 5 (5-7) 05/03/22 13:[address] 1.015 (1.005-1.030) 05/03/22 13:10 Urine Protein Trace (Negative) 05/03/22 13:10 Urine Glucose (UA) Norm (Normal) 05/03/22 13:10 Urine Ketones Negative (Negative) 05/03/22 13:10 Urine Blood Neg (Negative) 05/03/22 13:10 Urine Nitrate Positive (Negative) H 05/03/22 13:10 Urine Bilirubin Neg (Negative) 05/03/22 13:10 Urine Urobilinogen Norm mg/dL (Negative) 05/03/22 13:10 Ur Leukocyte Esterase 2+ (Negative) H 05/03/22 13:10 Urine RBC 0-4 /hpf (0-2) H 05/03/22 13:10 Urine WBC Too numerous to cnt /hpf (0-5) H 05/03/22 13:10 Ur Squamous Epith Cells 0-4 /hpf (0-5) H 05/03/22 13:10 Amorphous Sediment Not Reportable 05/03/22 13:10 Urine Bacteria 4+ /hpf (NONE) H 05/03/22 13:10 Nasal Influ A H1 2008 PCR Not detected (NOT DETECT) 05/03/22 11:50 Adenovirus (PCR) Not detected (NOT DETECT) 05/03/22 11:50 C. pneumoniae DNA (PCR) Not detected (NOT DETECT) 05/03/22 11:50 Coronavirus 229E (PCR) Not detected (NOT DETECT) 05/03/22 11:50 Human Metapneumovir PCR Not detected (NOT DETECT) 05/03/22 11:50 Influenza A (H1) PCR Not detected (NOT DETECT) 05/03/22 11:50 Influenza A (H3) PCR Not detected (NOT DETECT) 05/03/22 11:50 Influenza Type A (PCR) Not detected (NOT DETECT) 05/03/22 11:50 Influenza Type B (PCR) Not detected (NOT DETECT) 05/03/22 11:50 M. pneumoniae (PCR) Not detected (NOT DETECT) 05/03/22 11:50 Parainfluenza 1 (PCR) Not detected (NOT DETECT) 05/03/22 11:50 Parainfluenza 2 (PCR) Not detected (NOT DETECT) 05/03/22 11:50 Parainfluenza 3 (PCR) Not detected (NOT DETECT) 05/03/22 11:50 Parainfluenza 4 (PCR) Not detected (NOT DETECT) 05/03/22 11:50 RSV Type A (PCR) Not detected (NOT DETECT) 05/03/22 11:50 RSV Type B (PCR) Not detected (NOT DETECT) 05/03/22 11:50 Entero/Rhino (PCR) Not detected (NOT DETECT) 05/03/22 11:50 SARS-CoV-2 (PCR) Not detected (NOT DETECT) 05/03/22 11:50 Micro: Microbiology 05/03/22 11:27 Blood Culture - Preliminary Blood SPECIMEN COLLECTED 05/03/22 11:19 Blood Culture - Preliminary Blood SPECIMEN COLLECTED A&P Assessment and plan (1) Pyelonephritis: First episode, present on admission, organism unknown Cultures pending (2) History of bladder suspension procedure: Done in [place], [place] about 2 weeks ago (3) High risk medication use: Chronic Orencia, Arava, Plaquenil and intermittent steroids for rheumatoid arthritis flares (last course in February) (4) Seropositive rheumatoid arthritis of multiple sites: Follows with Dr. Leyva outpatient Clarified medication regimen and patient is no longer on methotrexate and has not been on it for several years by her report Currently on Orencia, Arava, Plaquenil and as needed prednisone (5) COPD (chronic obstructive pulmonary disease): Related to chronic tobacco use Qualifiers: COPD type: unspecified COPD Qualified Code(s): J44.9 - Chronic obstructive pulmonary disease, unspecified Plan Hypothyroidism on chronic replacement Dyslipidemia on chronic statin therapy Osteoporosis on chronic Fosamax Anxiety on as needed alprazolam and sertraline Gastroesophageal reflux on chronic PPI Chronic pain on chronic as needed hydrocodone and scheduled gabapentin Inpatient admission Continue Rocephin IV fluids Follow-up pending cultures Repeat CBC and CRP in the morning Advance diet as tolerated Discussed with patient holding of arava currently Reviewed with patient that next dose of Orencia should be held until infection has cleared Will continue Plaquenil Can consider a course of steroids if necessary for management of rheumatoid arthritis symptoms, will monitor for signs of adrenal insufficiency Pain control Breathing treatments if needed Hold home Fosamax while inpatient and spending most of her time supine Will continue home alprazolam at a lower dose, atorvastatin, folic acid, gabapentin, hydrocodone, levothyroxine, pantoprazole, sertraline Supportive care otherwise Anticipate discharge home with close outpatient follow-up both with primary care provider locally and with surgeon performing recent urological procedure. Additionally will want to follow-up with rheumatology regarding plan for safe resumption of Orencia in particular. Findings, concerns and plans were discussed with patient in the presence of her son and both were given an opportunity to ask questions. Full code Attestations Medical Necessity Statement*: Anticipated stay greater than two midnights in a chronically immunocompromised patient due to immunosuppressive agents presenting with acute pyelonephritis 2 weeks post surgery. Findings on imaging show moderate to severe changes in the right kidney consistent with abnormalities identified on examination. While she has not been having active vomiting and oral therapy could be considered, she has severely elevated CRP at 173 which is up from last comparative value this year of 3 and all prior comparative values being less than 10. She started Orencia for the first time within the last couple of months. Despite the extent of imaging findings and symptoms, she has not been experiencing fevers or usual symptoms we see at presentation because of her immunosuppression. Treatment without close monitoring and particularly in the setting of such high inflammatory markers a few weeks after surgical intervention carries significant risk of rapid clinical decline as well as new morbidity and mortality. Plans are as noted. Coding Level of Care Code [facility] Pyelonephritis N12 History of bladder suspension procedure Z98.890; Z87.448 High risk medication use Z79.899 Seropositive rheumatoid arthritis of multiple sites M05.79 COPD (chronic obstructive pulmonary disease) J44.9 COPD type: unspecified COPD
--- NOTE | 2022-05-03 20:30 | PC.NURSE ---
Patients vital signs @8:30pm BP: 100/62 T:98.4 O2:95 P:77 R:16
[2022-05-03] MEDS: atorvastatin 40 mg Tablet PO (21:06)
[2022-05-03] MEDS: gabapentin 300 mg Capsule 1200 MG PO (21:06)
[2022-05-03] MEDS: hydroxychloroquine 200 mg Tablet PO (21:06)
[2022-05-03] MEDS: sodium chlor 0.9% + KCl 20 mEq 20 MEQ/1,000 ML BAG 100 MEQ IV (21:07)
--- NOTE | 2022-05-03 21:26 | PC.NURSE ---
Patient was confused why she had 4 300mg of her gabapentin in med cup, patient verbalized she only takes two pills a time. Patient had prescription list at bedside. This nurse verified the correct dose was administered. Patient was included completely in this process and verbalized that she wanted to take all 4 pills for a total dose of 1200mg tonight.
[2022-05-04] VITALS (11 sets, daily range): BP systolic 94–133; BP diastolic 49–74; PULSE 66–78; RESP 14–18; TEMP 36.5–37.1; O2SAT 93–98
[2022-05-04] MEDS: cefTRIAXone 1,000 MG in sodium chloride 0.9% (plus) 50 ML 100 MG IV ×2 (01:11→14:09)
[2022-05-04 05:50] LABS: Basophils # 0.1 10^3/uL (0.0-0.1); Basophils % 0.8 %; Eosinophils # 0.1 10^3/uL (0.0-0.8); Eosinophils % 1.1 %; Hematocrit 34.4 % (37.0-47.0); Hemoglobin 11.1 g/dL (11.5-15.3); Lymphocytes # 2.8 10^3/uL (0.8-4.8); Lymphocytes % 20.8 %; Mean Corpuscular HGB Conc 32.3 g/dL (30.0-36.0); Mean Corpuscular Hemoglobin 30.7 pg (28.0-34.0); Mean Platelet Volume 11.1 fL (7.4-10.4); Monocytes # 1.5 10^3/uL (0.2-0.9); Monocytes % 11.6 %; Neutrophils # 8.63 10^3/uL (1.8-7.7); Neutrophils % 65.2 %; Nucleated Red Blood Cells % 0 %; Platelet Count 342 10^3/cmm (130-400); Red Blood Count 3.62 10^6/uL (4.1-5.3); Red Cell Distribution Width 13.2 % (12.1-15.1); White Blood Count 13.2 10^3/uL (4.0-10.0)
[2022-05-04] MEDS: levothyroxine 137 mcg Tablet PO (05:58)
[2022-05-04] MEDS: folic acid 1 mg Tablet PO (05:58)
[2022-05-04] MEDS: cholecalciferol (vitamin D3) 5,000 unit Tablet 5000 UNIT PO (05:58)
[2022-05-04 06:13] LABS: Anion Gap 12.4 (5-19); Blood Urea Nitrogen 6 mg/dL (8-23); C Reactive Protein 152.7 mg/L (0.0-4.9); Calcium 8.8 mg/dL (8.5-10.5); Carbon Dioxide 25 mmol/L (22-29); Chloride 105 mmol/L (98-107); Glomerular Filtration Rate 63.9 mL/min (90-130); Glucose 95 mg/dL (65-115); Magnesium 1.9 mg/dL (1.7-2.3); Osmolality Calculated 283 mOsm/kg (285-295); Phosphorus 2.5 mg/dL (2.5-4.5); Potassium 4.4 mmol/L (3.5-5.1); Sodium 138 mmol/L (136-145)
[2022-05-04] MEDS: sodium chlor 0.9% + KCl 20 mEq 20 MEQ/1,000 ML BAG 100 MEQ IV (06:56)
[2022-05-04] MEDS: ipratropium-albuterol 3 mL Neb INHALATION ×2 (09:32→12:31)
[2022-05-04] MEDS: hydroxychloroquine 200 mg Tablet PO ×2 (09:33→18:02)
[2022-05-04] MEDS: sertraline 50 mg Tablet 25 MG PO (09:34)
[2022-05-04] MEDS: oxybutynin chloride XL 5 MG TABLET PO (09:34)
[2022-05-04] MEDS: gabapentin 300 mg Capsule 1200 MG PO ×2 (09:34→18:07)
[2022-05-04] MEDS: pantoprazole DR 40 mg Tablet PO (09:34)
[2022-05-04 10:13] LABS: Bacillus cereus group Not Detected (NOT DETECT); Bacillus subtillis group Not Detected (NOT DETECT); Corynebacterium Not Detected (NOT DETECT); Cutibacterium acnes (P.acnes) Not Detected (NOT DETECT); Enterococcus Not Detected (NOT DETECT); Enterococcus faecalis Not Detected (NOT DETECT); Enterococcus faecium Not Detected (NOT DETECT); Lactobacillus species Not Detected (NOT DETECT); Listeria Not Detected (NOT DETECT); Listeria monocytogenes Not Detected (NOT DETECT); Micrococcus Not Detected (NOT DETECT); Pan Candida Not Detected (NOT DETECT); Pan Gram-Negative Not Detected (NOT DETECT); Staphylococcus epidermidis Not Detected (NOT DETECT); Staphylococcus lugdunensis Not Detected (NOT DETECT); Staphylococcus species Detected (NOT DETECT); Streptococcus agalactiae Not Detected (NOT DETECT); Streptococcus anginosus group Not Detected (NOT DETECT); Streptococcus pneumoniae Not Detected (NOT DETECT); Streptococcus pyogenes Not Detected (NOT DETECT); Streptococcus species Not Detected (NOT DETECT); mecA Detected (NOT DETECT); mecC Not Detected (NOT DETECT)
--- NOTE | 2022-05-04 10:13 | PC.CHAP ---
Pastoral Care Encounter/Spiritual Assessment Type of Contact [] Declined renewals manager visit [] Patient/Family/Request visit [] Outpatient visit [] Follow-up visit [] Physician referral [] Code/Alert [x] Routine visit [] Staff referral [] Actively dying [] Patient sleeping [] Family support [] [] Out of room [] Palliative care [] [] Receiving care in room [] Pre-surgical visit [] Trauma [] Long length of stay [] ICU visit [] Other: Relational/Emotional Strength [x] Patient feels connected with others/family/visitors/staff [] Distress [] Loneliness/isolation [] Abandonment Spirituality of Patient [x] Person of Camila [] Attends [employer] of their Camila [x] Believes in Prayer [] Reads Bible or Bahai materials [] There are Spiritual issues to be addressed Director Child Interventions [x] Prayer [x] Active listening [x] Non-anxious presence [] Spiritual/emotional support [] Crisis/trauma care [] Spiritual counseling [] Bereavement support [] Provided bereavement packet [] Provided Bible/devotional materials [] Provided toy/stuffed animal, coloring book to patient or family member [] Provided Communion [] Anointing/[place] [] Salvation [xx] Completed spiritual assessment [] Other: Impact on Illness or Injury [] Angry [] Fearful x Anxious [] Often cries [] Exhaustion [] Unable to work [] Unable to attend buddhist [] Unable to walk/stand [] Unable to read [] Unable to drive [] Unable to eat/drink [] Unable to sleep [] Unable to be with family [] Patient intubated [] Other: Summary Time spent with patient
--- NOTE | 2022-05-04 10:24 | P.PN_ITS ---
Subjective Subjective: Patient endorses generalized fatigue. Reports some flank pain. Reports that she does feel better today. Denies nausea, emesis, or abdominal pain. Discussed plan of care and follow-up cultures. Vitals/I&O/Wt Last Vital Signs Temp 98.7 F 05/04/22 08:00 Pulse 71 05/04/22 09:39 Resp 18 05/04/22 09:32 BP 94/49 05/04/22 08:00 Pulse Ox 95 05/04/22 09:32 O2 Del Method 05/04/22 09:32 05/03/22 05/04/22 05/04/22 22:59 06:59 14:59 Intake Total 1170 / 1170 1511.667 / 2681.667 Balance 1170 / 1170 1511.667 / 2681.667 Weight last 48 hrs Weight 70.307 kg Physical Exam Narrative: General: Patient is awake. Head: Normocephalic. Atraumatic. EOM intact. Neck: No JVD. Cardiovascular: RRR. No gallops. No murmurs. Lungs: Clear to auscultation, no use of accessory muscles, no crackles or wheezes. Skin: No jaundice. No rashes. Abdomen: Normal bowel sounds, abdomen soft and nontender. Rectal: Rectal exam not performed since no symptoms indicated blood loss. Extremities: No cyanosis or clubbing. Musculoskeletal: No deformed joints. Neurological: Moves all 4 extremities. No myoclonus. Data 05/04/22 05:42 05/04/22 05:42 Micro: Microbiology 05/03/22 13:10 Urine Culture - Preliminary Urine,Clean Catch Gram Negative Rods 05/03/22 11:27 Blood Culture - Preliminary Blood SPECIMEN COLLECTED 05/03/22 11:19 Blood Culture - Preliminary Blood SPECIMEN COLLECTED A&P Assessment and plan (1) Pyelonephritis: Moderate to severe right-sided pyelonephritis History of recent bladder surgery at [facility] about 2 weeks ago Urine preliminary culture with gram-negative rods Blood cultures Continue ceftriaxone Analgesics as needed Discontinue IV fluids Encourage p.o. intake (2) Rheumatoid arthritis with rheumatoid factor: On Orencia Continue Plaquenil Multimodal pain control Qualifiers: Rheumatoid arthritis location: multiple sites Qualified Code(s): M05.79 - Rheumatoid arthritis with rheumatoid factor of multiple sites without organ or systems involvement (3) COPD (chronic obstructive pulmonary disease): Continue albuterol as needed Qualifiers: COPD type: unspecified COPD Qualified Code(s): J44.9 - Chronic obstructive pulmonary disease, unspecified (4) Hypothyroid: Continue Synthroid (5) GERD (gastroesophageal reflux disease): Continue pantoprazole (6) Dyslipidemia: Continue statin (7) Anxiety: Continue Xanax Continue sertraline Plan DVT prophylaxis: Ambulatory CODE STATUS: Full code Attestations Medical Necessity Statement*: Patient requires ongoing hospitalization for IV antibiotics, follow-up cultures, supportive care in the setting of moderate to severe pyelonephritis and in an immunocompromised patient. Coding Level of Care Code Acute Olive Knocker for [facility] Diagnoses Pyelonephritis N12 Rheumatoid arthritis with rheumatoid factor M05.79 Rheumatoid arthritis location: multiple sites COPD (chronic obstructive pulmonary disease) J44.9 COPD type: unspecified COPD Hypothyroid E03.9 GERD (gastroesophageal reflux disease) K21.9 Dyslipidemia E78.5 Anxiety F41.9
[2022-05-04] MEDS: vancomycin 1,250 MG/250 ML PIGGYBACK 250 MG IV (14:44)
[2022-05-04] MEDS: atorvastatin 40 mg Tablet PO (20:59)
[2022-05-05] VITALS (8 sets, daily range): BP systolic 111–132; BP diastolic 55–72; PULSE 57–70; RESP 14–18; TEMP 36.4–36.8; O2SAT 96–98
[2022-05-05] MEDS: cefTRIAXone 1,000 MG in sodium chloride 0.9% (plus) 50 ML 100 MG IV ×2 (01:23→13:07)
[2022-05-05 02:03] LABS: Basophils # 0.1 10^3/uL (0.0-0.1); Basophils % 0.9 %; Eosinophils # 0.1 10^3/uL (0.0-0.8); Eosinophils % 1.5 %; Hematocrit 32.8 % (37.0-47.0); Hemoglobin 10.5 g/dL (11.5-15.3); Lymphocytes # 2.2 10^3/uL (0.8-4.8); Lymphocytes % 25.6 %; Mean Corpuscular Volume 96.8 fl (81-99); Mean Platelet Volume 11.5 fL (7.4-10.4); Monocytes % 11.1 %; Neutrophils # 5.22 10^3/uL (1.8-7.7); Nucleated Red Blood Cells % 0 %; Platelet Count 328 10^3/cmm (130-400); Red Blood Count 3.39 10^6/uL (4.1-5.3); Red Cell Distribution Width 13.2 % (12.1-15.1); White Blood Count 8.7 10^3/uL (4.0-10.0)
[2022-05-05 02:25] LABS: Albumin Level 2.7 g/dL (3.5-5.2); Anion Gap 12.7 (5-19); Blood Urea Nitrogen 6 mg/dL (8-23); Calcium 8.7 mg/dL (8.5-10.5); Carbon Dioxide 24 mmol/L (22-29); Chloride 107 mmol/L (98-107); Glomerular Filtration Rate 63.9 mL/min (90-130); Glucose 114 mg/dL (65-115); Phosphorus 3.2 mg/dL (2.5-4.5); Potassium 3.7 mmol/L (3.5-5.1); Sodium 140 mmol/L (136-145)
[2022-05-05] MEDS: cholecalciferol (vitamin D3) 5,000 unit Tablet 5000 UNIT PO (06:25)
[2022-05-05] MEDS: vancomycin 1,250 MG/250 ML PIGGYBACK 250 MG IV (06:25)
[2022-05-05] MEDS: folic acid 1 mg Tablet PO (06:25)
[2022-05-05] MEDS: levothyroxine 137 mcg Tablet PO (06:25)
[2022-05-05] MEDS: oxybutynin chloride XL 5 MG TABLET PO (07:43)
[2022-05-05] MEDS: gabapentin 300 mg Capsule 1200 MG PO (07:43)
[2022-05-05] MEDS: sertraline 50 mg Tablet 25 MG PO (07:43)
[2022-05-05] MEDS: pantoprazole DR 40 mg Tablet PO (07:44)
[2022-05-05] MEDS: hydroxychloroquine 200 mg Tablet PO ×2 (07:44→17:12)
--- NOTE | 2022-05-05 14:53 | P.PN_ITS ---
Subjective Subjective: Patient reports she is feeling better today. Seems the pains resolved. She endorses good appetite. Denies fevers, chills, nausea or emesis. She is eager to go home. Discussed were waiting for culture results and she is agreeable. Vitals/I&O/Wt Last Vital Signs Temp 97.9 F 05/05/22 13:18 Pulse 65 05/05/22 13:18 Resp 18 05/05/22 13:18 BP 119/65 05/05/22 13:18 Pulse Ox 96 05/05/22 13:18 O2 Del Method 05/05/22 13:18 05/04/22 05/05/22 05/05/22 22:59 06:59 14:59 Intake Total 1730 / 2300 50 / 2350 730 / 730 Output Total 200 / 200 Balance 1730 / 2300 50 / 2350 530 / 530 Physical Exam Narrative: General: Patient is awake. Alert. Head: Normocephalic. Atraumatic. EOMI. Neck: No JVD. Cardiovascular: RRR. No gallops. No murmurs. Lungs: Clear to auscultation, no use of accessory muscles, no crackles or wheezes. Skin: No jaundice. No rashes. Abdomen: Normal bowel sounds, abdomen soft and nontender. Rectal: Rectal exam not performed since no symptoms indicated blood loss. Extremities: No cyanosis or clubbing. Musculoskeletal: No deformed joints. Neurological: Moves all 4 extremities. No myoclonus. Data 05/05/22 01:22 05/05/22 01:22 Micro: Microbiology 05/03/22 11:27 Blood Culture - Preliminary Blood Staphylococcus sp coag neg 05/03/22 11:19 Blood Culture - Preliminary Blood NEGATIVE TO DATE 05/03/22 13:10 Urine Culture - Preliminary Urine,Clean Catch Gram Negative Rods A&P Assessment and plan (1) Pyelonephritis: Moderate to severe right-sided pyelonephritis History of recent bladder surgery at [facility] about 2 weeks ago Urine preliminary culture with gram-negative rods Blood cultures Continue ceftriaxone Analgesics as needed (2) Bacteremia: Blood culture with Staph Awaiting specie Continue vancomycin (3) Rheumatoid arthritis with rheumatoid factor: On Orencia Continue Plaquenil Multimodal pain control Qualifiers: Rheumatoid arthritis location: multiple sites Qualified Code(s): M05.79 - Rheumatoid arthritis with rheumatoid factor of multiple sites without organ or systems involvement (4) COPD (chronic obstructive pulmonary disease): Continue albuterol as needed Qualifiers: COPD type: unspecified COPD Qualified Code(s): J44.9 - Chronic obstructive pulmonary disease, unspecified (5) Hypothyroid: Continue Synthroid (6) GERD (gastroesophageal reflux disease): Continue pantoprazole (7) Dyslipidemia: Continue statin (8) Anxiety: Continue Xanax Continue sertraline Plan DVT prophylaxis: Ambulatory CODE STATUS: Full code Attestations Medical Necessity Statement*: Patient requires ongoing hospitalization for IV antibiotics, follow-up cultures, supportive care in the setting of moderate to severe pyelonephritis and bacteremia in an immunocompromised patient. Coding Level of Care Code Acute Social Media [employer]les [facility] Diagnoses Pyelonephritis N12 Bacteremia R78.81 Rheumatoid arthritis with rheumatoid factor M05.79 Rheumatoid arthritis location: multiple sites COPD (chronic obstructive pulmonary disease) J44.9 COPD type: unspecified COPD Hypothyroid E03.9 GERD (gastroesophageal reflux disease) K21.9 Dyslipidemia E78.5 Anxiety F41.9
[2022-05-05] MEDS: gabapentin 300 mg Capsule 600 MG PO (17:12)
[2022-05-05] MEDS: atorvastatin 40 mg Tablet PO (20:18)
[2022-05-06] MEDS: cefTRIAXone 1,000 MG in sodium chloride 0.9% (plus) 50 ML 100 MG IV (00:44)
[2022-05-06] MEDS: vancomycin 1,250 MG/250 ML PIGGYBACK 250 MG IV (01:19)
[2022-05-06] MEDS: levothyroxine 137 mcg Tablet PO (06:22)
[2022-05-06] MEDS: folic acid 1 mg Tablet PO (06:22)
[2022-05-06] MEDS: cholecalciferol (vitamin D3) 5,000 unit Tablet 5000 UNIT PO (06:22)
[2022-05-06] MEDS: bisacodyl 5 mg Tablet 10 MG PO (06:24)
--- NOTE | 2022-05-06 07:04 | PM.DCS ---
Discharge Providers Date of Admission: 05/03/22 14:50 Date of Discharge: May 06, 2022 Attending Provider at Admission: Sada Albarado MD Attending Provider at Discharge: Jordan Vale MD Consults: None Primary Care Provider: Aubrey Shore Diagnoses at Discharge Discharge Diagnosis (1) Pyelonephritis: Status: Acute (2) Bacteremia: Status: Acute (3) Rheumatoid arthritis with rheumatoid factor: Status: Chronic Qualifiers: Rheumatoid arthritis location: multiple sites Qualified Code(s): M05.79 - Rheumatoid arthritis with rheumatoid factor of multiple sites without organ or systems involvement (4) COPD (chronic obstructive pulmonary disease): Status: Chronic Qualifiers: COPD type: unspecified COPD Qualified Code(s): J44.9 - Chronic obstructive pulmonary disease, unspecified (5) Hypothyroid: Status: Chronic (6) GERD (gastroesophageal reflux disease): Status: Chronic (7) Dyslipidemia: Status: Acute (8) Anxiety: Status: Acute Reason for Visit Reason for Visit: Covid symptoms, possible infection Hospital Course Hospital Course Sabrina Dominguez is a 62-year-old female with past medical history significant for GERD, urinary incontinence, rheumatoid arthritis, and hypothyroidism who presented with generalized aches and fatigue, found to have moderate to severe right-sided pyelonephritis and cystitis in the setting of recent bladder surgery [facility] 2 weeks ago. She was treated with broad-spectrum antibiotics. Blood culture showed coag negative staph deemed to be a contaminant. At discharge she was rotated to oral ciprofloxacin based on sensitivity results. Symptoms improved. Patient was discharged home in stable condition. She is to follow-up with her primary care provider in 1 to 2 weeks. Physical Exam Narrative: General: Patient is awake and alert. Head: Normocephalic. Atraumatic. EOM intact. Neck: No JVD. Cardiovascular: No peripheral edema. Lungs: Nonlabored. No accessory muscle use. On room air. Skin: No jaundice. No rashes. Abdomen: Not distended Rectal: Rectal exam not performed since no symptoms indicated blood loss. Extremities: No cyanosis or clubbing. Musculoskeletal: No visible joint deformity Neurological: Moves all 4 extremities. No myoclonus. Discharge Data Studies Completed and Pending Completed Studies During Hospitalization Category Date Time Status CT abdomen pelvis w con* [id number] Stat Cat Scan 05/03/22 12:23 Completed XR chest 1V portable [id number] Stat Exams 05/03/22 11:08 Completed Pending at discharge Category Date Time Status Blood Culture Stat Lab 05/03/22 11:19 Results Vancomycin Trough Timed Lab 05/06/22 18:00 Ordered Radiology Impressions Chest X-Ray 05/03/22 11:08 IMPRESSION: Recommend clinical correlation for possibility of early interstitial edema as noted above. Abdomen/Pelvis CT 05/03/22 12:23 IMPRESSION: 1. Moderate to severe acute RIGHT pyelonephritis. There is delayed enhancement with renal enlargement and perinephric stranding. Most significant changes in the lower pole with a focal area of acute nephritis. 2. No renal obstruction. 3. LEFT kidney is negative for pyelonephritis. 4. Small retroperitoneal lymph nodes. 5. Normal appendix. Laboratory Results WBC 8.7 10^3/uL (4.0-10.0) 05/05/22 01:22 RBC 3.39 10^6/uL (4.1-5.3) L 05/05/22 01:22 Hgb 10.5 g/dL (11.5-15.3) L 05/05/22 01:22 Hct 32.8 % (37.0-47.0) L 05/05/22 01:22 MCV 96.8 fl (81-99) 05/05/22:22 MCH 31.0 pg (28.0-34.0) 05/05/22: MCHC 32.0 g/dL (30.0-36.0) 05/05/22:22 RDW 13.2 % (12.1-15.1) 05/05/22 01:22 Plt Count 328 10^3/cmm (130-400) 05/05/22 01:22 MPV 11.5 fL (7.4-10.4) H 05/05/22 01:22 Neut % (Auto) 60.0 % 05/05/22 01:22 Lymph % (Auto) 25.6 % 05/05/22 01:22 [place] % (Auto) 11.1 % 05/05/22 01:22 Eos % (Auto) 1.5 % 05/05/22 01:22 Baso % (Auto) 0.9 % 05/05/22 01:22 Neut # (Auto) 5.22 10^3/uL (1.8-7.7) 05/05/22 01:22 Lymph # (Auto) 2.2 10^3/uL (0.8-4.8) 05/05/22 01:22 [place] # (Auto) 1.0 10^3/uL (0.2-0.9) H 05/05/22 01:22 Eos # (Auto) 0.1 10^3/uL (0.0-0.8) 05/05/22 01:22 Baso # (Auto) 0.1 10^3/uL (0.0-0.1) 05/05/22 01:22 Nucleated RBC % (auto) 0 % 05/05/22 01:22 Nucleated RBCs # 0.0 /100WBC 05/05/22 01:22 Sodium 140 mmol/L (136-145) 05/05/22 01:22 Potassium 3.7 mmol/L (3.5-5.1) 05/05/22 01:22 Chloride 107 mmol/L (98-107) 05/05/22 01:22 Carbon Dioxide 24 mmol/L (22-29) 05/05/22 01:22 Anion Gap 12.7 (5-19) 05/05/22 01:22 BUN 6 mg/dL (8-23) L 05/05/22 01:22 Creatinine 0.9 mg/dL (0.5-0.9) 05/05/22 01:22 GFR Calculation 63.9 mL/min (90-130) L 05/05/22 01:22 Glucose 114 mg/dL (65-115) 05/05/22 01:22 Calculated Osmolality 283 mOsm/kg (285-295) L 05/04/22 05:42 Lactic Acid 1.1 mmol/L (0.5-2.2) 05/03/22 11:19 Calcium 8.7 mg/dL (8.5-10.5) 05/05/22 01:22 Phosphorus 3.2 mg/dL (2.5-4.5) 05/05/22 01:22 Magnesium 1.9 mg/dL (1.7-2.3) 05/04/22 05:42 Total Bilirubin 0.5 mg/dL (0.15-1.2) 05/03/22 11:19 AST 12 U/L (0-32) 05/03/22 11:19 ALT 9 U/L (0-33) 05/03/22 11:19 Alkaline Phosphatase 106 U/L (35-105) H 05/03/22 11:19 C-Reactive Protein 152.7 mg/L (0.0-4.9) H 05/04/22 05:42 NT-Pro-B Natriuret Pep 123 pg/mL (0-125) 05/03/22 11:19 Total Protein 7.6 g/dL (6.6-8.7) 05/03/22 11:19 Albumin 2.7 g/dL (3.5-5.2) L 05/05/22 01:22 Globulin 4.1 g/dL (1.3-4.6) 05/03/22 11:19 Procalcitonin 0.25 ng/mL (0-0.5) 05/03/22 11:19 Urine Color Hetal (Yellow) 05/03/22 13:10 Urine Appearance Clear (CLEAR) 05/03/22 13:10 Urine pH 5 (5-7) 05/03/22 13:10 Ur Specific [place] 1.015 (1.005-1.030) 05/03/22 13:10 Urine Protein Trace (Negative) 05/03/22 13:10 Urine Glucose (UA) Norm (Normal) 05/03/22 13:10 Urine Ketones Negative (Negative) 05/03/22 13:10 Urine Blood Neg (Negative) 05/03/22 13:10 Urine Nitrate Positive (Negative) H 05/03/22 13:10 Urine Bilirubin Neg (Negative) 05/03/22 13:10 Urine Urobilinogen Norm mg/dL (Negative) 05/03/22 13:10 Ur Leukocyte Esterase 2+ (Negative) H 05/03/22 13:10 Urine RBC 0-4 /hpf (0-2) H 05/03/22 13:10 Urine WBC Too numerous to cnt /hpf (0-5) H 05/03/22 13:10 Ur Squamous Epith Cells 0-4 /hpf (0-5) H 05/03/22 13:10 Amorphous Sediment Not Reportable 05/03/22 13:10 Urine Bacteria 4+ /hpf (NONE) H 05/03/22 13:10 Nasal Influ A H1 2008 PCR Not detected (NOT DETECT) 05/03/22 11:50 Adenovirus (PCR) Not detected (NOT DETECT) 05/03/22 11:50 C. pneumoniae DNA (PCR) Not detected (NOT DETECT) 05/03/22 11:50 Coronavirus 229E (PCR) Not detected (NOT DETECT) 05/03/22 11:50 Human Metapneumovir PCR Not detected (NOT DETECT) 05/03/22 11:50 Influenza A (H1) PCR Not detected (NOT DETECT) 05/03/22 11:50 Influenza A (H3) PCR Not detected (NOT DETECT) 05/03/22 11:50 Influenza Type A (PCR) Not detected (NOT DETECT) 05/03/22 11:50 Influenza Type B (PCR) Not detected (NOT DETECT) 05/03/22 11:50 M. pneumoniae (PCR) Not detected (NOT DETECT) 05/03/22 11:50 Parainfluenza 1 (PCR) Not detected (NOT DETECT) 05/03/22 11:50 Parainfluenza 2 (PCR) Not detected (NOT DETECT) 05/03/22 11:50 Parainfluenza 3 (PCR) Not detected (NOT DETECT) 05/03/22 11:50 Parainfluenza 4 (PCR) Not detected (NOT DETECT) 05/03/22 11:50 RSV Type A (PCR) Not detected (NOT DETECT) 05/03/22 11:50 RSV Type B (PCR) Not detected (NOT DETECT) 05/03/22 11:50 Entero/Rhino (PCR) Not detected (NOT DETECT) 05/03/22 11:50 SARS-CoV-2 (PCR) Not detected (NOT DETECT) 05/03/22 11:50 Additional Data from Hospital Stay Procedure Result Verified Site Urine Culture Final 05/05/22-1521 Organism 1 Escherichia coli [place] Count >100,000 CFU/ml DAY 2 E coli M.I.C. RX --------- ------ * Amikacin <=16 S * Amoxicillin/Clavulanate <=8/4 S * Ampicillin >16 R * Ampicillin/Sulbactam 16/8 I * Aztreonam <=4 S * Cefepime <=8 S * Ceftriaxone <=1 S * Cefuroxime 8 S * Ciprofloxacin <=1 S * Gentamicin <=2 S * Imipenem <=1 S * Levofloxacin <=2 S * Nitrofurantoin <=32 S * Tetracycline <=4 S * Trimethoprim/Sulfamethoxazole <=2/38 S * Piperacillin/Tazobactam <=16 S Urine Culture Preliminary (changed) 05/04/22-938 Organism 1 Gram Negative Rods [place] Count >100,000 CFU/ml DAY 1, RESULTS TO FOLLOW Procedures Performed None Vitals Last Vital Signs Temp 98.0 F 05/05/22 23:50 Pulse 67 05/05/22 23:50 Resp 15 05/05/22 23:50 BP 118/55 05/05/22 23:50 Pulse Ox 97 05/05/22 23:50 O2 Del Method 05/05/22 23:50 Discharge Plan Discharge Patient Disposition: Home Condition: Stable Prescriptions: New ciprofloxacin 500 mg PO BID 12 Days Qty: 24 0RF Continued sertraline [Zoloft] 25 mg tablet 25 mg PO QAM gabapentin 300 mg capsule 1,200 mg PO BID Qty: 120 1RF hydroxychloroquine 200 mg tablet 200 mg PO BID Qty: 180 0RF Hold Instructions: Doctor's Order leflunomide 10 mg tablet 10 mg PO DAILY Qty: 90 0RF pantoprazole 40 mg tablet,delayed release (DR/EC) 40 mg PO DAILY Qty: 90 3RF oxybutynin chloride 5 mg tablet extended release 24 hr 5 mg PO DAILY Qty: 30 5RF alprazolam 0.5 mg tablet 0.5 mg PO TID PRN (Reason: anxiety) Qty: 30 0RF Anoro Ellipta 62.5-25 mcg/actuation blister with device 1 inh inhalation Q24H Qty: 60 3RF atorvastatin 40 mg tablet 40 mg PO BEDTIME levothyroxine 137 mcg tablet 137 mcg PO QAM calcium carbonate [Calcium 500] 500 mg calcium (1,250 mg) tablet,chewable 500 mg PO BID albuterol sulfate 90 mcg/actuation Hfa Aerosol Inhaler 2 puff INHALATION Q4H PRN (Reason: Shortness Of Breath) cholecalciferol (vitamin D3) [Vitamin D3] 125 mcg (5,000 unit) Tablet 125 mcg PO QAM folic acid 1 mg tablet 1 mg PO QAM alendronate [Fosamax] 70 mg tablet 70 mg PO Q7D Rx Instructions: on sat hydrocodone-acetaminophen 5-325 mg tablet See Rx Instructions .ROUTE .COMPLEX PRN (Reason: pain) Rx Instructions: 1 tab orally Q 4-6 hours PRN pain prednisone 5 mg tablet 15 mg PO QAM PRN (Reason: flare up) Discharge Orders: Discharge Order (Routine); Ordered 05/06/22 Ordered By: Jordan Vale Referrals: Aubrey Shore [employer]OW[employer] INSPECTOR [Primary Care Provider] - 4-7 days Discharge Diet: Advance as tolerated and Usual diet Discharge Activity: Resume usual activity and Increase activity as tolerated Patient Instructions: Opioid Safety Activity Restrictions/Additional Instructions: 1. Take medications as prescribed 2. Follow-up with primary care provider within 1 week Discharge Attestations Time Spent in Discharge Care*: greater than 30 min Status at Discharge: Overall status at discharge: patient is progressing back to baseline Quality Metrics Clinical Quality Measures [ No reported AMI, CVA or VTE this stay] Coding Level of Care Code Acute Chg FW DC note Diagnoses Pyelonephritis N12 Bacteremia R78.81 Rheumatoid arthritis with rheumatoid factor M05.79 Rheumatoid arthritis location: multiple sites COPD (chronic obstructive pulmonary disease) J44.9 COPD type: unspecified COPD Hypothyroid E03.9 GERD (gastroesophageal reflux disease) K21.9 Dyslipidemia E78.5 Anxiety F41.9
[2022-05-06 07:25] VITALS: BP 112/65; PULSE 68; RESP 16; TEMP 36.7; O2SAT 98
[2022-05-06 07:52] VITALS: BP 125/73; PULSE 57; RESP 16; TEMP 36.3; O2SAT 97
--- NOTE | 2022-05-06 08:27 | PC.NURSE ---
PRESCRIPTION CALLED INTO [facility] [place]
[2022-05-06] MEDS: sertraline 50 mg Tablet 25 MG PO (08:51)
[2022-05-06] MEDS: gabapentin 300 mg Capsule 600 MG PO (08:51)
[2022-05-06] MEDS: oxybutynin chloride XL 5 MG TABLET PO (08:51)
[2022-05-06] MEDS: hydroxychloroquine 200 mg Tablet PO (08:51)
[2022-05-06] MEDS: pantoprazole DR 40 mg Tablet PO (08:51)
== END 2022-05-06 09:19 | disposition home or self-care (01) | DRG 690 ==
LOC: ER 15:20 → MEDSURG 18:51
PROVIDERS: Admitting Provider Hospitalist; Emergency Provider Emergency Medicine; PCP Clinical Nurse Specialist Adult Health; Visit Provider Internal Medicine
DX: N10 Acute pyelonephritis (principal); D84.821 Immunodeficiency due to drugs; R78.81 Bacteremia; N30.90 Cystitis, unspecified without hematuria; Y83.8 Other surgical procedures as the cause of abnormal reaction of the patient, or of later complication, without mention of misadventure at the time of the procedure; M05.79 Rheumatoid arthritis with rheumatoid factor of multiple sites without organ or systems involvement; J44.9 Chronic obstructive pulmonary disease, unspecified; E03.9 Hypothyroidism, unspecified; K21.9 Gastro-esophageal reflux disease without esophagitis; E78.5 Hyperlipidemia, unspecified; F41.9 Anxiety disorder, unspecified; R11.0 Nausea; M81.0 Age-related osteoporosis without current pathological fracture; G89.29 Other chronic pain; F17.210 Nicotine dependence, cigarettes, uncomplicated; Z98.890 Other specified postprocedural states; Z90.710 Acquired absence of both cervix and uterus; Z79.891 Long term (current) use of opiate analgesic; Z79.899 Other long term (current) drug therapy; Z79.52 Long term (current) use of systemic steroids; Z79.69 Long term (current) use of other immunomodulators and immunosuppressants
CPT/HCPCS: 36415; 71045; 74177; 80048; 80053; 80069; 81001; 83605; 83735; 83880; 84100; 84145; 85025; 86140; 87040; 87077; 87086; 87150; 87186; 87205; 87486; 87581; 87633; 94640; 96365; 96367; 96375; 99285; J0696; J2270; J2405; J3370; J3480; J7030; Q9967

== ENCOUNTER 2022-05-26 13:55 | Outpatient (CLI) | payer MEDICAID, SELFPAY ==
[2022-05-26 14:01] VITALS: BP 143/86; PULSE 96; RESP 18; TEMP 36.5; O2SAT 98
[2022-05-26] MEDS: sodium chloride 0.9% 250 ML 50 ML IV (14:29)
[2022-05-26] MEDS: acetaminophen 325 mg Tablet 650 MG PO (14:30)
[2022-05-26] MEDS: diphenhydrAMINE 50 mg/mL SDV 1mL IVP (14:33)
[2022-05-26 15:28] VITALS: BP 146/91; PULSE 84; RESP 18; TEMP 36.9; O2SAT 96
== END 2022-05-26 13:56 | disposition home or self-care (01) ==
LOC: ONCMED 13:55
PROVIDERS: PCP Clinical Nurse Specialist Adult Health; Visit Provider Internal Medicine Rheumatology
DX: M06.9 Rheumatoid arthritis, unspecified (principal)
CPT/HCPCS: 96365; 96375; A4222; J0129; J1200; J2920; J7050

== ENCOUNTER 2022-07-26 09:59 | Outpatient (CLI) | payer MEDICAID, SELFPAY ==
[2022-07-26 11:18] LABS: Basophils # 0.1 10^3/uL (0.0-0.1); Basophils % 0.8 %; Eosinophils % 0.4 %; Hematocrit 42.5 % (37.0-47.0); Hemoglobin 14.1 g/dL (11.5-15.3); Lymphocytes # 3.6 10^3/uL (0.8-4.8); Lymphocytes % 47.5 %; Mean Corpuscular HGB Conc 33.2 g/dL (30.0-36.0); Mean Corpuscular Hemoglobin 31.1 pg (28.0-34.0); Mean Corpuscular Volume 93.6 fl (81-99); Mean Platelet Volume 12.2 fL (7.4-10.4); Monocytes # 0.9 10^3/uL (0.2-0.9); Monocytes % 11.8 %; Neutrophils # 2.94 10^3/uL (1.8-7.7); Neutrophils % 39.2 %; Nucleated Red Blood Cells % 0 %; Platelet Count 272 10^3/cmm (130-400); Red Blood Count 4.54 10^6/uL (4.1-5.3); Red Cell Distribution Width 14.3 % (12.1-15.1); White Blood Count 7.5 10^3/uL (4.0-10.0)
[2022-07-26 11:39] LABS: Alanine Aminotransferase 10 U/L (0-33); Albumin Level 4.1 g/dL (3.5-5.2); Alkaline Phosphatase 95 U/L (35-105); Aspartate Amino Transferase 28 U/L (0-32); C Reactive Protein 5.8 mg/L (0.0-4.9); Globulin 3.2 g/dL (1.3-4.6); Glomerular Filtration Rate 63.9 mL/min (90-130); Total Bilirubin 0.2 mg/dL (0.15-1.2); Total Protein 7.3 g/dL (6.6-8.7)
== END 2022-07-26 10:00 | disposition home or self-care (01) ==
PROVIDERS: PCP Clinical Nurse Specialist Adult Health; Visit Provider Internal Medicine Rheumatology
DX: M05.79 Rheumatoid arthritis with rheumatoid factor of multiple sites without organ or systems involvement (principal); Z79.899 Other long term (current) drug therapy
CPT/HCPCS: 36415; 80076; 82565; 85025; 86140

== ENCOUNTER 2022-08-03 09:44 | Oncology outpatient (recurring) (ONCR) | payer MEDICAID, SELFPAY ==
[2022-08-03] MEDS: acetaminophen 325 mg Tablet 650 MG PO (10:39)
[2022-08-03] MEDS: diphenhydrAMINE 50 mg/mL SDV 1mL 25 MG IVP ×2 (10:39→12:04)
[2022-08-03] MEDS: sodium chloride 0.9% 250 ML 75 ML IV (10:40)
[2022-08-03 10:43] VITALS: BP 105/68; PULSE 72; RESP 16; TEMP 37.2; O2SAT 97
[2022-08-03] MEDS: abatacept 500 MG in sodium chloride 0.9% (100 ml) 100 ML 200 MG IV (11:03)
[2022-08-03 11:43] VITALS: BP 103/64; PULSE 68; RESP 16; TEMP 36.7; O2SAT 99
[2022-08-03 12:49] VITALS: BP 110/70; PULSE 65; RESP 16; TEMP 37.2; O2SAT 98
== END 2022-08-27 23:59 | disposition home or self-care (01) ==
PROVIDERS: PCP Clinical Nurse Specialist Adult Health; Visit Provider Internal Medicine Rheumatology
DX: M05.79 Rheumatoid arthritis with rheumatoid factor of multiple sites without organ or systems involvement (principal); Z79.899 Other long term (current) drug therapy
CPT/HCPCS: 96361; 96365; 96375; J0129; J1200; J2920; J7050

== ENCOUNTER 2022-08-31 09:51 | Oncology outpatient (recurring) (ONCR) | payer MEDICAID, SELFPAY ==
[2022-08-31 10:04] VITALS: BP 131/77; PULSE 79; RESP 16; TEMP 36.8; O2SAT 97
[2022-08-31] MEDS: acetaminophen 325 mg Tablet 650 MG PO (10:21)
[2022-08-31] MEDS: sodium chloride 0.9% 250 ML 75 ML IV (10:22)
[2022-08-31] MEDS: diphenhydrAMINE 50 mg/mL SDV 1mL IVP (10:24)
[2022-08-31] MEDS: abatacept 500 MG in sodium chloride 0.9% (100 ml) 100 ML 200 MG IV (10:46)
[2022-08-31 11:34] VITALS: BP 133/70; PULSE 74; RESP 16; TEMP 37; O2SAT 99
== END 2022-09-26 23:59 | disposition home or self-care (01) ==
PROVIDERS: PCP Clinical Nurse Specialist Adult Health; Visit Provider Internal Medicine Rheumatology
DX: M05.79 Rheumatoid arthritis with rheumatoid factor of multiple sites without organ or systems involvement (principal); Z79.899 Other long term (current) drug therapy
CPT/HCPCS: 96365; 96375; J0129; J1200; J7050

== ENCOUNTER 2022-10-27 11:30 | Oncology outpatient (recurring) (ONCR) | payer MEDICAID, SELFPAY ==
[2022-09-28 09:50] VITALS: BP 147/77; PULSE 67; TEMP 36.6; O2SAT 95
[2022-09-28] MEDS: acetaminophen 325 mg Tablet 650 MG PO (10:33)
[2022-09-28] MEDS: sodium chloride 0.9% 250 ML 100 ML IV (10:34)
[2022-09-28] MEDS: diphenhydrAMINE 50 mg/mL SDV 1mL IVP (10:36)
[2022-09-28] MEDS: abatacept 500 MG in sodium chloride 0.9% (100 ml) 100 ML 200 MG IV (10:55)
[2022-09-28 11:38] VITALS: BP 133/82; PULSE 74; TEMP 36.8; O2SAT 98
[2022-10-26 10:04] VITALS: BP 120/75; PULSE 81; RESP 16; TEMP 36.3; O2SAT 95
[2022-10-26] MEDS: acetaminophen 325 mg Tablet 650 MG PO (10:20)
[2022-10-26] MEDS: diphenhydrAMINE 50 mg/mL SDV 1mL 25 MG IVP (10:21)
[2022-10-26] MEDS: sodium chloride 0.9% 250 ML 75 ML IV (10:24)
[2022-10-26 10:45] LABS: Basophils # 0.1 10^3/uL (0.0-0.1); Basophils % 1.2 %; Eosinophils # 0.2 10^3/uL (0.0-0.8); Eosinophils % 1.3 %; Hematocrit 38.2 % (37.0-47.0); Hemoglobin 12.6 g/dL (11.5-15.3); Lymphocytes # 3.2 10^3/uL (0.8-4.8); Lymphocytes % 28.6 %; Mean Corpuscular Hemoglobin 30.6 pg (28.0-34.0); Mean Corpuscular Volume 92.7 fl (81-99); Mean Platelet Volume 11.5 fL (7.4-10.4); Monocytes # 0.9 10^3/uL (0.2-0.9); Monocytes % 7.6 %; Neutrophils # 6.78 10^3/uL (1.8-7.7); Nucleated Red Blood Cells % 0 %; Platelet Count 321 10^3/cmm (130-400); Red Blood Count 4.12 10^6/uL (4.1-5.3); Red Cell Distribution Width 14.6 % (12.1-15.1); White Blood Count 11.1 10^3/uL (4.0-10.0)
[2022-10-26] MEDS: abatacept 500 MG in sodium chloride 0.9% (100 ml) 100 ML 200 MG IV (10:49)
[2022-10-26 11:01] LABS: Alanine Aminotransferase 6 U/L (0-33); Alkaline Phosphatase 97 U/L (35-105); Aspartate Amino Transferase 18 U/L (0-32); C Reactive Protein 3.4 mg/L (0.0-4.9); Globulin 3.3 g/dL (1.3-4.6); Glomerular Filtration Rate 63.9 mL/min (90-130); Total Bilirubin 0.3 mg/dL (0.15-1.2); Total Protein 7.3 g/dL (6.6-8.7)
[2022-10-26 11:17] LABS: Erythrocyte Sedimentation Rate 28 mm/hr (0-15)
[2022-10-26 12:15] VITALS: BP 129/73; PULSE 70; RESP 16; TEMP 36.4; O2SAT 97
== END 2022-10-27 23:59 | disposition home or self-care (01) ==
PROVIDERS: PCP Clinical Nurse Specialist Adult Health; Visit Provider Internal Medicine Rheumatology
DX: Z53.9 Procedure and treatment not carried out, unspecified reason (principal)
CPT/HCPCS: 80076; 82565; 85025; 85651; 86140; 96365; 96375; 96413; J0129; J1200; J7050

== ENCOUNTER 2022-11-26 07:54 | Oncology outpatient (recurring) (ONCR) | payer MEDICARE, MEDICAID, SELFPAY ==
[2022-11-26 08:03] VITALS: BP 122/72; PULSE 83; RESP 16; TEMP 37; O2SAT 95
[2022-11-26 08:16] LABS: Basophils # 0.2 10^3/uL (0.0-0.1); Basophils % 1.3 %; Eosinophils # 0.2 10^3/uL (0.0-0.8); Eosinophils % 1.7 %; Hematocrit 40.4 % (37.0-47.0); Hemoglobin 13.8 g/dL (11.5-15.3); Lymphocytes # 3.7 10^3/uL (0.8-4.8); Lymphocytes % 29.5 %; Mean Corpuscular HGB Conc 34.2 g/dL (30.0-36.0); Mean Corpuscular Hemoglobin 31.7 pg (28.0-34.0); Mean Corpuscular Volume 92.7 fl (81-99); Mean Platelet Volume 11.5 fL (7.4-10.4); Monocytes # 1.1 10^3/uL (0.2-0.9); Monocytes % 8.9 %; Neutrophils # 7.31 10^3/uL (1.8-7.7); Neutrophils % 58.3 %; Nucleated Red Blood Cells % 0 %; Platelet Count 340 10^3/cmm (130-400); Red Blood Count 4.36 10^6/uL (4.1-5.3); White Blood Count 12.5 10^3/uL (4.0-10.0)
[2022-11-26] MEDS: sodium chloride 0.9% 250 ML 75 ML IV (08:48)
[2022-11-26] MEDS: diphenhydrAMINE 50 mg/mL SDV 1mL 25 MG IVP (08:53)
[2022-11-26] MEDS: acetaminophen 325 mg Tablet 650 MG PO (08:55)
[2022-11-26] MEDS: abatacept 500 MG in sodium chloride 0.9% (100 ml) 100 ML 200 MG IV (09:02)
[2022-11-26 10:02] VITALS: BP 124/76; PULSE 63; RESP 18; TEMP 36.8; O2SAT 99
[2022-11-26 10:33] LABS: Alanine Aminotransferase 8 U/L (0-33); Albumin Level 3.8 g/dL (3.5-5.2); Alkaline Phosphatase 99 U/L (35-105); Aspartate Amino Transferase 15 U/L (0-32); C Reactive Protein 3.2 mg/L (0.0-4.9); Globulin 3.2 g/dL (1.3-4.6); Glomerular Filtration Rate 63.9 mL/min (90-130); Total Bilirubin 0.2 mg/dL (0.15-1.2)
== END 2022-11-26 23:59 | disposition home or self-care (01) ==
PROVIDERS: PCP Clinical Nurse Specialist Adult Health; Visit Provider Internal Medicine Rheumatology
DX: M05.79 Rheumatoid arthritis with rheumatoid factor of multiple sites without organ or systems involvement (principal); Z79.899 Other long term (current) drug therapy
CPT/HCPCS: 80076; 82565; 85025; 86140; 96365; 96375; J0129; J1200; J7050

== ENCOUNTER 2022-12-21 08:40 | Outpatient (CLI) | payer MEDICARE, MEDICAID, SELFPAY ==
--- NOTE | 2022-12-21 08:51 | MM_ITS ---
WS: [id number] BILATERAL SCREENING DIGITAL TOMOSYNTHESIS MAMMOGRAM WITH CAD HISTORY: SCREENING COMPARISON: 04/27/2021, 03/06/2020 Bilateral CC and MLO views with tomosynthesis and synthetic mammography submitted. Computer aided det ection analyzed. Breast composition: There are scattered areas of fibroglandular density. No suspicious masses, microc alcifications or architectural distortion. Benign calcification LEFT breast . MM/[place] [id number] IMPRESSION: BI-RADS: 2-Benign FOLLOW UP: 1 Year Follow-up
== END 2022-12-21 08:41 | disposition home or self-care (01) ==
LOC: RAD 08:48 → MOBLMAM 08:50
PROVIDERS: PCP Clinical Nurse Specialist Adult Health; Visit Provider Clinical Nurse Specialist Adult Health
DX: Z12.31 Encounter for screening mammogram for malignant neoplasm of breast (principal)
CPT/HCPCS: 77063; 77067

== ENCOUNTER 2022-12-24 08:01 | Oncology outpatient (recurring) (ONCR) | payer MEDICARE, OTHER, MEDICAID, SELFPAY ==
[2022-12-21 10:53] VITALS: BP 138/73; PULSE 90; RESP 18; TEMP 36.4; O2SAT 95; BMI 25.7
[2022-12-21 11:07] LABS: Basophils # 0.2 10^3/uL (0.0-0.1); Basophils % 1.4 %; Eosinophils # 0.2 10^3/uL (0.0-0.8); Eosinophils % 1.8 %; Hematocrit 40.5 % (37.0-47.0); Hemoglobin 13.4 g/dL (11.5-15.3); Lymphocytes # 3.4 10^3/uL (0.8-4.8); Lymphocytes % 31.5 %; Mean Corpuscular HGB Conc 33.1 g/dL (30.0-36.0); Mean Corpuscular Hemoglobin 30.7 pg (28.0-34.0); Mean Corpuscular Volume 92.7 fl (81-99); Mean Platelet Volume 11.5 fL (7.4-10.4); Monocytes # 0.9 10^3/uL (0.2-0.9); Monocytes % 8.6 %; Neutrophils # 6.03 10^3/uL (1.8-7.7); Neutrophils % 56.5 %; Nucleated Red Blood Cells % 0 %; Platelet Count 330 10^3/cmm (130-400); Red Blood Count 4.37 10^6/uL (4.1-5.3); White Blood Count 10.7 10^3/uL (4.0-10.0)
[2022-12-21 11:36] LABS: Alanine Aminotransferase 11 U/L (0-33); Albumin Level 4.1 g/dL (3.5-5.2); Alkaline Phosphatase 97 U/L (35-105); Globulin 3.5 g/dL (1.3-4.6); Glomerular Filtration Rate 56.6 mL/min (90-130); Total Bilirubin 0.2 mg/dL (0.15-1.2); Total Protein 7.6 g/dL (6.6-8.7)
[2022-12-21 11:39] LABS: Aspartate Amino Transferase 22 U/L (0-32)
[2022-12-21 14:45] VITALS: BP 151/79; PULSE 75; RESP 17; TEMP 36.2; O2SAT 98
[2022-12-24 08:17] VITALS: BP 116/80; PULSE 74; RESP 18; TEMP 36.2; O2SAT 100; BMI 25.7
[2022-12-24] MEDS: acetaminophen 325 mg Tablet 650 MG PO (08:34)
[2022-12-24] MEDS: diphenhydrAMINE 50 mg/mL SDV 1mL 25 MG IVP (08:35)
[2022-12-24] MEDS: sodium chloride 0.9% 250 ML 75 ML IV (08:35)
[2022-12-24] MEDS: abatacept 500 MG in sodium chloride 0.9% (100 ml) 100 ML 200 MG IV (09:00)
[2022-12-24 11:15] VITALS: BP 120/76; PULSE 69; RESP 16; TEMP 36.2; O2SAT 98
== END 2022-12-27 23:59 | disposition home or self-care (01) ==
PROVIDERS: PCP Clinical Nurse Specialist Adult Health; Visit Provider Internal Medicine Rheumatology
DX: M05.9 Rheumatoid arthritis with rheumatoid factor, unspecified (principal)
CPT/HCPCS: 80076; 82565; 85025; 96375; 96413; J0129; J1200; J7050

== ENCOUNTER 2023-01-21 07:58 | Oncology outpatient (recurring) (ONCR) | payer MEDICARE, OTHER, MEDICAID, SELFPAY ==
[2023-01-21 08:15] VITALS: BP 121/58; PULSE 72; RESP 18; TEMP 36.8; O2SAT 97
[2023-01-21 08:16] VITALS: BMI 25.9
[2023-01-21] MEDS: sodium chloride 0.9% 250 ML 75 ML IV (09:03)
[2023-01-21] MEDS: acetaminophen 325 mg Tablet 650 MG PO (09:04)
[2023-01-21] MEDS: diphenhydrAMINE 50 mg/mL SDV 1mL 25 MG IVP (09:06)
[2023-01-21] MEDS: abatacept 500 MG in sodium chloride 0.9% (100 ml) 100 ML 200 MG IV (09:15)
[2023-01-21 10:04] VITALS: BP 141/69; PULSE 71; RESP 18; TEMP 36.6; O2SAT 97
== END 2023-01-27 23:59 | disposition home or self-care (01) ==
PROVIDERS: PCP Clinical Nurse Specialist Adult Health; Visit Provider Internal Medicine Rheumatology
DX: M05.9 Rheumatoid arthritis with rheumatoid factor, unspecified (principal)
CPT/HCPCS: 96375; 96413; J0129; J1200; J7050

== ENCOUNTER → 2023-01-24 13:28 | Outpatient (BNVA) | payer MEDICARE, OTHER, MEDICAID, SELFPAY | PROVIDERS: PCP Clinical Nurse Specialist Adult Health; Visit Provider Internal Medicine Rheumatology | DX: M05.79 Rheumatoid arthritis with rheumatoid factor of multiple sites without organ or systems involvement (principal); G56.03 Carpal tunnel syndrome, bilateral upper limbs; Z79.899 Other long term (current) drug therapy; Z71.89 Other specified counseling | CPT/HCPCS: 99214 ==

== ENCOUNTER → 2023-02-01 08:26 | Outpatient (BNVA) | payer MEDICARE, OTHER, SELFPAY | PROVIDERS: PCP Clinical Nurse Specialist Adult Health; Visit Provider Clinical Nurse Specialist Adult Health | DX: E03.9 Hypothyroidism, unspecified (principal); E55.9 Vitamin D deficiency, unspecified; E78.5 Hyperlipidemia, unspecified; J44.9 Chronic obstructive pulmonary disease, unspecified; M25.511 Pain in right shoulder | CPT/HCPCS: 80053; 80061; 82306; 84436; 84443; 84481; 85025 ==

== ENCOUNTER 2023-03-28 08:00 | Oncology outpatient (recurring) (ONCR) | payer MEDICARE, OTHER, MEDICAID, SELFPAY ==
[2023-02-28 08:15] VITALS: BP 162/80; PULSE 78; RESP 16; TEMP 37.1; O2SAT 97
[2023-02-28 08:26] LABS: Basophils # 0.2 10^3/uL (0.0-0.1); Basophils % 1.8 %; Eosinophils # 0.5 10^3/uL (0.0-0.8); Hematocrit 37.8 % (36-47); Lymphocytes # 2.6 10^3/uL (0.8-4.8); Mean Corpuscular HGB Conc 33.3 g/dL (30-55); Mean Corpuscular Hemoglobin 31.2 pg (27-33); Mean Corpuscular Volume 93.6 fl (85-98); Mean Platelet Volume 11.2 fL (7.4-10.4); Monocytes # 0.8 10^3/uL (0.2-0.9); Monocytes % 9.4 %; Neutrophils # 4.75 10^3/uL (1.8-7.7); Neutrophils % 53.5 %; Nucleated Red Blood Cells % 0 %; Platelet Count 318 10^3/cmm (157-399); Red Blood Count 4.04 10^6/uL (3.85-5.65); White Blood Count 8.87 10^3/uL (3.29-11.43)
[2023-02-28] MEDS: sodium chloride 0.9% 250 ML 75 ML IV (08:31)
[2023-02-28] MEDS: diphenhydrAMINE 50 mg/mL SDV 1mL 25 MG IVP (08:33)
[2023-02-28] MEDS: acetaminophen 325 mg Tablet 650 MG PO (08:33)
[2023-02-28 08:41] LABS: Alanine Aminotransferase < 5 U/L (0-33); Albumin Level 3.8 g/dL (3.5-5.2); Alkaline Phosphatase 98 U/L (35-105); Aspartate Amino Transferase 17 U/L (0-32); C Reactive Protein 4.2 mg/L (0.0-4.9); Globulin 2.9 g/dL (1.3-4.6); Glomerular Filtration Rate 56.6 mL/min (90-130); Total Bilirubin 0.4 mg/dL (0.15-1.2); Total Protein 6.7 g/dL (6.6-8.7)
[2023-02-28] MEDS: abatacept 750 MG in sodium chloride 0.9% (100 ml) 100 ML 200 MG IV (09:04)
[2023-02-28 09:40] VITALS: BP 135/82; PULSE 76; RESP 16; TEMP 37.1; O2SAT 99
[2023-03-28 08:16] VITALS: BP 117/77; PULSE 88; RESP 17; TEMP 36.6; O2SAT 99; BMI 25.2
[2023-03-28] MEDS: diphenhydrAMINE 50 mg/mL SDV 1mL 25 MG IVP (08:31)
[2023-03-28] MEDS: sodium chloride 0.9% 250 ML 75 ML IV (08:31)
[2023-03-28] MEDS: acetaminophen 325 mg Tablet 650 MG PO (08:31)
[2023-03-28] MEDS: abatacept 750 MG in sodium chloride 0.9% (100 ml) 100 ML 200 MG IV (08:55)
[2023-03-28 09:35] VITALS: BP 125/77; PULSE 79; RESP 16; TEMP 36.7; O2SAT 94
== END 2023-03-29 23:59 | disposition home or self-care (01) ==
PROVIDERS: PCP Clinical Nurse Specialist Adult Health; Visit Provider Internal Medicine Rheumatology
DX: M05.79 Rheumatoid arthritis with rheumatoid factor of multiple sites without organ or systems involvement (principal)
CPT/HCPCS: 80076; 82565; 85025; 86140; 96375; 96413; J0129; J1200; J7050

== ENCOUNTER → 2023-04-05 14:53 | Outpatient (BNVA) | payer MEDICARE, MEDICAID, SELFPAY | PROVIDERS: PCP Clinical Nurse Specialist Adult Health; Visit Provider Clinical Nurse Specialist Adult Health | DX: J06.9 Acute upper respiratory infection, unspecified (principal); H66.92 Otitis media, unspecified, left ear; H61.21 Impacted cerumen, right ear; H66.002 Acute suppurative otitis media without spontaneous rupture of ear drum, left ear | CPT/HCPCS: 87426 ==

== ENCOUNTER 2023-04-25 07:55 | Oncology outpatient (recurring) (ONCR) | payer MEDICARE, OTHER, MEDICAID, SELFPAY ==
[2023-04-25 08:10] VITALS: BP 128/77; PULSE 88; RESP 16; TEMP 36.7; O2SAT 99
[2023-04-25] MEDS: acetaminophen 325 mg Tablet 650 MG PO (08:22)
[2023-04-25] MEDS: sodium chloride 0.9% 250 ML 75 ML IV (08:22)
[2023-04-25] MEDS: diphenhydrAMINE 50 mg/mL SDV 1mL 25 MG IVP (08:22)
[2023-04-25] MEDS: abatacept 750 MG in sodium chloride 0.9% (100 ml) 100 ML 200 MG IV (08:41)
[2023-04-25 09:25] VITALS: BP 127/77; PULSE 82; RESP 16; TEMP 36.6; O2SAT 99
== END 2023-04-28 23:59 | disposition home or self-care (01) ==
LOC: ONCMED 07:56
PROVIDERS: PCP Clinical Nurse Specialist Adult Health; Visit Provider Internal Medicine Rheumatology
DX: M05.79 Rheumatoid arthritis with rheumatoid factor of multiple sites without organ or systems involvement (principal); Z79.899 Other long term (current) drug therapy; M05.9 Rheumatoid arthritis with rheumatoid factor, unspecified; G56.03 Carpal tunnel syndrome, bilateral upper limbs; Z71.89 Other specified counseling
CPT/HCPCS: 96365; 96375; 99214; J0129; J1200; J7050

== ENCOUNTER 2023-05-24 08:00 | Oncology outpatient (recurring) (ONCR) | payer MEDICARE, OTHER, MEDICAID, SELFPAY ==
[2023-05-24 08:06] VITALS: BMI 25.6
[2023-05-24 08:09] VITALS: BP 139/82; PULSE 82; RESP 16; TEMP 36.7; O2SAT 100
--- NOTE | 2023-05-24 08:35 | PC.NURSE ---
Informed patient that per Dr. Motley's office and protocol patient infusion is to be placed on hold due to productive cough. Patient to call office next week to reschedule infusion if well, if not well then patient to go to PCP for evaluation and possible antibiotics. Patient verbalized understanding.
== END 2023-05-29 23:59 | disposition home or self-care (01) ==
LOC: ONCMED 08:00
PROVIDERS: PCP Clinical Nurse Specialist Adult Health; Visit Provider Internal Medicine Rheumatology
DX: Z53.9 Procedure and treatment not carried out, unspecified reason

== ENCOUNTER 2023-06-06 08:20 | Oncology outpatient (recurring) (ONCR) | payer MEDICARE, OTHER, MEDICAID, SELFPAY ==
[2023-06-06 09:09] VITALS: BP 131/86; PULSE 85; RESP 17; TEMP 36.2; O2SAT 96
[2023-06-06] MEDS: acetaminophen 325 mg Tablet 650 MG PO (09:59)
[2023-06-06] MEDS: sodium chloride 0.9% 250 ML 75 ML IV (10:00)
[2023-06-06 10:02] LABS: Basophils # 0.2 10^3/uL (0.0-0.1); Basophils % 1.7 %; Eosinophils # 0.3 10^3/uL (0.0-0.8); Eosinophils % 3.2 %; Hematocrit 41.4 % (36-47); Lymphocytes # 2.2 10^3/uL (0.8-4.8); Lymphocytes % 21.9 %; Mean Corpuscular HGB Conc 32.4 g/dL (30-55); Mean Corpuscular Hemoglobin 30.5 pg (27-33); Mean Corpuscular Volume 94.1 fl (85-98); Mean Platelet Volume 11.5 fL (7.4-10.4); Monocytes # 0.8 10^3/uL (0.2-0.9); Monocytes % 7.7 %; Neutrophils # 6.43 10^3/uL (1.8-7.7); Neutrophils % 63.9 %; Nucleated Red Blood Cells % 0 %; Platelet Count 320 10^3/cmm (157-399); Red Cell Distribution Width 13.5 % (12.1-15.1); White Blood Count 10.07 10^3/uL (3.29-11.43)
[2023-06-06] MEDS: diphenhydrAMINE 50 mg/mL SDV 1mL 25 MG IVP (10:03)
[2023-06-06] MEDS: abatacept 750 MG in sodium chloride 0.9% (100 ml) 100 ML 200 MG IV (10:29)
[2023-06-06 10:52] LABS: Erythrocyte Sedimentation Rate 22 mm/hr (0-15)
[2023-06-06 11:30] VITALS: BP 127/82; PULSE 77; RESP 17; TEMP 36.6; O2SAT 96
[2023-06-06 13:12] LABS: Alanine Aminotransferase 11 U/L (0-33); Albumin Level 3.8 g/dL (3.5-5.2); Alkaline Phosphatase 104 U/L (35-105); Aspartate Amino Transferase 17 U/L (0-32); C Reactive Protein 3.2 mg/L (0.0-4.9); Globulin 3.6 g/dL (1.3-4.6); Glomerular Filtration Rate 56.4 mL/min (90-130); Total Bilirubin 0.4 mg/dL (0.15-1.2); Total Protein 7.4 g/dL (6.6-8.7)
== END 2023-06-29 23:59 | disposition home or self-care (01) ==
PROVIDERS: Internal Medicine Rheumatology; PCP Clinical Nurse Specialist Adult Health; Visit Provider Clinical Nurse Specialist Adult Health
DX: M05.79 Rheumatoid arthritis with rheumatoid factor of multiple sites without organ or systems involvement (principal)
CPT/HCPCS: 80076; 82565; 85025; 85651; 86140; 96365; 96375; J0129; J1200; J7050

== ENCOUNTER 2023-07-04 08:24 | Oncology outpatient (recurring) (ONCR) | payer MEDICARE, OTHER, MEDICAID, SELFPAY ==
[2023-07-04] MEDS: acetaminophen 325 mg Tablet 650 MG PO (09:06)
[2023-07-04] MEDS: diphenhydrAMINE 50 mg/mL SDV 1mL 25 MG IVP (09:06)
[2023-07-04] MEDS: sodium chloride 0.9% 250 ML 75 ML IV (09:06)
[2023-07-04] MEDS: abatacept 750 MG in sodium chloride 0.9% (100 ml) 100 ML 200 MG IV (09:37)
[2023-07-04 10:11] VITALS: BP 138/77; PULSE 75; RESP 18; TEMP 36.2; O2SAT 96
== END 2023-07-28 23:59 | disposition home or self-care (01) ==
PROVIDERS: PCP Clinical Nurse Specialist Adult Health; Visit Provider Clinical Nurse Specialist Adult Health
DX: M05.9 Rheumatoid arthritis with rheumatoid factor, unspecified
CPT/HCPCS: 96365; J0129; J1200; J7050

== ENCOUNTER → 2023-07-25 12:57 | Outpatient (BNVA) | payer MEDICARE, OTHER, MEDICAID, SELFPAY | PROVIDERS: PCP Clinical Nurse Specialist Adult Health; Visit Provider Internal Medicine Rheumatology | DX: M05.79 Rheumatoid arthritis with rheumatoid factor of multiple sites without organ or systems involvement (principal); G56.03 Carpal tunnel syndrome, bilateral upper limbs; Z79.899 Other long term (current) drug therapy; Z71.89 Other specified counseling | CPT/HCPCS: 99214 ==

== ENCOUNTER 2023-08-01 08:21 | Oncology outpatient (recurring) (ONCR) | payer MEDICARE, OTHER, MEDICAID, SELFPAY ==
[2023-08-01 08:41] VITALS: BP 130/79; PULSE 82; RESP 16; TEMP 36.6; O2SAT 96
[2023-08-01] MEDS: sodium chloride 0.9% 250 ML 75 ML IV (08:54)
[2023-08-01] MEDS: diphenhydrAMINE 50 mg/mL SDV 1mL 25 MG IVP (08:56)
[2023-08-01] MEDS: acetaminophen 325 mg Tablet 650 MG PO (08:56)
[2023-08-01] MEDS: abatacept 750 MG in sodium chloride 0.9% (100 ml) 100 ML 200 MG IV (09:06)
[2023-08-01 10:08] VITALS: BP 132/75; PULSE 86; RESP 16; TEMP 37.2; O2SAT 95
== END 2023-08-28 23:59 | disposition home or self-care (01) ==
PROVIDERS: PCP Clinical Nurse Specialist Adult Health; Visit Provider Clinical Nurse Specialist Adult Health
DX: M05.9 Rheumatoid arthritis with rheumatoid factor, unspecified (principal)
CPT/HCPCS: 96365; 96375; A4222; J0129; J1200; J7050

== ENCOUNTER 2023-09-26 08:24 | Oncology outpatient (recurring) (ONCR) | payer MEDICARE, OTHER, MEDICAID, SELFPAY ==
[2023-08-29 08:21] VITALS: BP 151/85; PULSE 89; RESP 18; TEMP 36; O2SAT 97
[2023-08-29] MEDS: sodium chloride 0.9% 250 ML 75 ML IV (08:41)
[2023-08-29] MEDS: acetaminophen 325 mg Tablet 650 MG PO (08:42)
[2023-08-29] MEDS: diphenhydrAMINE 50 mg/mL SDV 1mL 25 MG IVP (08:42)
[2023-08-29 08:44] LABS: Basophils # 0.2 10^3/uL (0.0-0.1); Basophils % 2.2 %; Eosinophils # 0.4 10^3/uL (0.0-0.8); Eosinophils % 4.3 %; Hematocrit 39.4 % (36-47); Lymphocytes # 2.4 10^3/uL (0.8-4.8); Lymphocytes % 29.7 %; Mean Corpuscular HGB Conc 33.2 g/dL (30-55); Mean Corpuscular Hemoglobin 30.8 pg (27-33); Mean Corpuscular Volume 92.7 fl (85-98); Mean Platelet Volume 11.5 fL (7.4-10.4); Monocytes # 0.8 10^3/uL (0.2-0.9); Monocytes % 10.1 %; Neutrophils # 4.34 10^3/uL (1.8-7.7); Neutrophils % 53.5 %; Nucleated Red Blood Cells % 0 %; Platelet Count 298 10^3/cmm (157-399); Red Blood Count 4.25 10^6/uL (3.85-5.65); Red Cell Distribution Width 13.8 % (12.1-15.1); White Blood Count 8.12 10^3/uL (3.29-11.43)
[2023-08-29] MEDS: abatacept 750 MG in sodium chloride 0.9% (100 ml) 100 ML 200 MG IV (08:49)
[2023-08-29 09:02] LABS: Alanine Aminotransferase 7 U/L (0-33); Albumin Level 3.8 g/dL (3.5-5.2); Alkaline Phosphatase 103 U/L (35-105); Aspartate Amino Transferase 15 U/L (0-32); Creatinine Clr Calc Pharmacy 64.0188; Globulin 3.4 g/dL (1.3-4.6); Glomerular Filtration Rate 63.7 mL/min (90-130); Total Bilirubin 0.2 mg/dL (0.15-1.2); Total Protein 7.2 g/dL (6.6-8.7)
[2023-08-29 09:21] LABS: Erythrocyte Sedimentation Rate 11 mm/hr (0-15)
[2023-08-29 09:40] VITALS: BP 158/93; PULSE 78; RESP 18; TEMP 36.2; O2SAT 95
[2023-09-26 09:02] VITALS: BP 144/82; PULSE 82; RESP 18; TEMP 36.4; O2SAT 96
[2023-09-26] MEDS: acetaminophen 325 mg Tablet 650 MG PO (09:22)
[2023-09-26] MEDS: diphenhydrAMINE 50 mg/mL SDV 1mL 25 MG IVP (09:22)
[2023-09-26] MEDS: sodium chloride 0.9% 250 ML 75 ML IV (09:22)
[2023-09-26] MEDS: abatacept 750 MG in sodium chloride 0.9% (100 ml) 100 ML 200 MG IV (09:58)
[2023-09-26 10:28] VITALS: BP 133/80; PULSE 70; RESP 18; TEMP 36.4; O2SAT 94
== END 2023-09-27 23:59 | disposition home or self-care (01) ==
PROVIDERS: Internal Medicine Rheumatology; PCP Clinical Nurse Specialist Adult Health; Visit Provider Clinical Nurse Specialist Adult Health
DX: Z53.9 Procedure and treatment not carried out, unspecified reason (principal); M05.9 Rheumatoid arthritis with rheumatoid factor, unspecified
CPT/HCPCS: 80076; 82565; 85025; 85651; 86140; 96365; 96375; A4222; J0129; J1200; J7050

== ENCOUNTER 2023-10-25 08:30 | Oncology outpatient (recurring) (ONCR) | payer MEDICARE, OTHER, MEDICAID, SELFPAY ==
[2023-10-25 08:30] VITALS: BP 166/80; PULSE 81; RESP 16; TEMP 36.4; O2SAT 97
[2023-10-25] MEDS: acetaminophen 325 mg Tablet 650 MG PO (08:54)
[2023-10-25] MEDS: sodium chloride 0.9% 250 ML 75 ML IV (08:54)
[2023-10-25] MEDS: diphenhydrAMINE 50 mg/mL SDV 1mL 25 MG IVP (08:54)
[2023-10-25 09:01] LABS: Erythrocyte Sedimentation Rate 10 mm/hr (0-15)
[2023-10-25 09:02] LABS: Basophils # 0.1 10^3/uL (0.0-0.1); Basophils % 1.5 %; Eosinophils # 0.2 10^3/uL (0.0-0.8); Eosinophils % 2.5 %; Hematocrit 40.7 % (36-47); Lymphocytes % 35.3 %; Mean Corpuscular HGB Conc 33.4 g/dL (30-55); Mean Corpuscular Hemoglobin 31.1 pg (27-33); Mean Corpuscular Volume 93.1 fl (85-98); Mean Platelet Volume 11.4 fL (7.4-10.4); Monocytes # 0.8 10^3/uL (0.2-0.9); Monocytes % 9.6 %; Neutrophils % 50.9 %; Nucleated Red Blood Cells % 0 %; Platelet Count 356 10^3/cmm (157-399); Red Blood Count 4.37 10^6/uL (3.85-5.65); Red Cell Distribution Width 13.9 % (12.1-15.1); White Blood Count 8.46 10^3/uL (3.29-11.43)
[2023-10-25 09:19] LABS: Alanine Aminotransferase 9 U/L (0-33); Albumin Level 4.1 g/dL (3.5-5.2); Alkaline Phosphatase 114 U/L (35-105); Aspartate Amino Transferase 13 U/L (0-32); Creatinine Clr Calc Pharmacy 63.2669; Globulin 3.6 g/dL (1.3-4.6); Glomerular Filtration Rate 63.7 mL/min (90-130); Total Bilirubin 0.3 mg/dL (0.15-1.2); Total Protein 7.7 g/dL (6.6-8.7)
[2023-10-25] MEDS: abatacept 750 MG in sodium chloride 0.9% (100 ml) 100 ML 200 MG IV (09:27)
[2023-10-25 10:20] VITALS: BP 147/83; PULSE 68; RESP 16; TEMP 36.4; O2SAT 97
== END 2023-10-28 23:59 | disposition home or self-care (01) ==
PROVIDERS: Internal Medicine Rheumatology; PCP Clinical Nurse Specialist Adult Health; Visit Provider Clinical Nurse Specialist Adult Health
DX: M05.9 Rheumatoid arthritis with rheumatoid factor, unspecified; Z53.9 Procedure and treatment not carried out, unspecified reason
CPT/HCPCS: 36415; 80076; 82565; 85025; 85651; 86140; 96365; 96375; 99204; A4222; J0129; J1200; J7050

== ENCOUNTER 2023-11-22 07:52 | Oncology outpatient (recurring) (ONCR) | payer MEDICARE, SELFPAY ==
[2023-11-22 08:05] VITALS: BP 148/71; PULSE 85; RESP 17; TEMP 36.7; O2SAT 95
[2023-11-22] MEDS: sodium chloride 0.9% 250 ML 75 ML IV (08:40)
[2023-11-22] MEDS: acetaminophen 325 mg Tablet 650 MG PO (08:40)
[2023-11-22] MEDS: diphenhydrAMINE 50 mg/mL SDV 1mL 25 MG IVP (08:41)
[2023-11-22] MEDS: abatacept 750 MG in sodium chloride 0.9% (100 ml) 100 ML 200 MG IV (08:52)
[2023-11-22 10:36] VITALS: BP 132/76; PULSE 78; RESP 16; TEMP 36.5; O2SAT 96
== END 2023-11-27 23:59 | disposition home or self-care (01) ==
PROVIDERS: PCP Family Medicine; Visit Provider Internal Medicine Rheumatology
DX: M05.9 Rheumatoid arthritis with rheumatoid factor, unspecified (principal); Z79.620 Long term (current) use of immunosuppressive biologic
CPT/HCPCS: 96365; A4222; J0129; J1200; J7050

== ENCOUNTER 2023-12-15 11:24 | Outpatient (CLI) | payer MEDICARE, OTHER, SELFPAY ==
--- NOTE | 2023-12-15 11:32 | XRR_ITS ---
PROCEDURE INFORMATION: Exam: XR Cervical Spine Exam date and time: 12/15/2023 11:42 AM Age: 63 years old Clinical indication: Radicular pain (radiculopathy); Cervical region; Additional info: M54.12 - radiculopathy, cervical region TECHNIQUE: Imaging protocol: Radiologic exam of the cervical spine. Views: 2 or 3 views. COMPARISON: CR XR chest 1V portable [id number] 05/03/2022 11:27 AM FINDINGS: Bones/joints: There is multilevel degenerative disc disease along with vertebral body spurring and facet arthropathy. No fracture or subluxation. Soft tissues: Unremarkable. XR/XR cervical spine 3V* [id number] IMPRESSION: Multilevel arthritic changes
== END 2023-12-15 11:25 | disposition home or self-care (01) ==
LOC: RAD 11:25
PROVIDERS: PCP Family Medicine; Visit Provider Family Medicine
DX: M54.12 Radiculopathy, cervical region (principal); M50.30 Other cervical disc degeneration, unspecified cervical region; M25.78 Osteophyte, vertebrae; M47.892 Other spondylosis, cervical region
CPT/HCPCS: 72040

== ENCOUNTER 2023-12-20 08:46 | Oncology outpatient (recurring) (ONCR) | payer MEDICARE, OTHER, SELFPAY ==
[2023-12-20 09:26] VITALS: BP 132/70; PULSE 74; RESP 16; TEMP 36.4; O2SAT 96
[2023-12-20] MEDS: acetaminophen 325 mg Tablet 650 MG PO (09:47)
[2023-12-20] MEDS: diphenhydrAMINE 50 mg/mL SDV 1mL 25 MG IVP (09:48)
[2023-12-20] MEDS: sodium chloride 0.9% 250 ML 75 ML IV (09:48)
[2023-12-20] MEDS: abatacept 750 MG in sodium chloride 0.9% (100 ml) 100 ML 200 MG IV (10:23)
[2023-12-20 11:09] VITALS: BP 133/74; PULSE 75; TEMP 36; O2SAT 95
== END 2023-12-28 23:59 | disposition home or self-care (01) ==
LOC: ONCMED 08:47
PROVIDERS: PCP Family Medicine; Visit Provider Internal Medicine Rheumatology
DX: M05.9 Rheumatoid arthritis with rheumatoid factor, unspecified (principal); Z79.899 Other long term (current) drug therapy
CPT/HCPCS: 96365; 96375; A4222; J0129; J1200; J7050

== ENCOUNTER 2024-01-17 08:20 | Oncology outpatient (recurring) (ONCR) | payer MEDICARE, OTHER, SELFPAY ==
[2024-01-17 08:37] VITALS: BP 127/84; PULSE 86; RESP 16; TEMP 36.8; O2SAT 94
[2024-01-17] MEDS: sodium chloride 0.9% 250 ML 75 ML IV (08:40)
[2024-01-17] MEDS: acetaminophen 325 mg Tablet 650 MG PO (08:40)
[2024-01-17] MEDS: diphenhydrAMINE 50 mg/mL SDV 1mL 25 MG IVP (08:42)
[2024-01-17 08:48] LABS: Basophils # 0.1 10^3/uL (0.0-0.1); Eosinophils # 0.3 10^3/uL (0.0-0.8); Eosinophils % 2.6 %; Hematocrit 41.1 % (36-47); Lymphocytes # 2.7 10^3/uL (0.8-4.8); Lymphocytes % 25.2 %; Mean Corpuscular HGB Conc 32.6 g/dL (30-55); Mean Corpuscular Hemoglobin 30.9 pg (27-33); Mean Corpuscular Volume 94.9 fl (85-98); Mean Platelet Volume 11.3 fL (7.4-10.4); Monocytes % 9.1 %; Neutrophils # 6.55 10^3/uL (1.8-7.7); Neutrophils % 61.8 %; Nucleated Red Blood Cells % 0 %; Platelet Count 303 10^3/cmm (157-399); Red Blood Count 4.33 10^6/uL (3.85-5.65); Red Cell Distribution Width 14.5 % (12.1-15.1); White Blood Count 10.62 10^3/uL (3.29-11.43)
[2024-01-17 09:05] LABS: Alanine Aminotransferase 10 U/L (0-33); Albumin Level 4.2 g/dL (3.5-5.2); Alkaline Phosphatase 139 U/L (35-105)
[2024-01-17] MEDS: abatacept 750 MG in sodium chloride 0.9% (100 ml) 100 ML 200 MG IV (09:13)
[2024-01-17 09:38] LABS: Aspartate Amino Transferase 17 U/L (0-32); C Reactive Protein 7.5 mg/L (0.0-4.9); Globulin 3.2 g/dL (1.3-4.6); Glomerular Filtration Rate 63.7 mL/min (90-130); Total Bilirubin 0.3 mg/dL (0.15-1.2); Total Protein 7.4 g/dL (6.6-8.7)
[2024-01-17 09:50] VITALS: BP 141/79; PULSE 77; RESP 16; TEMP 36.4; O2SAT 100
== END 2024-02-02 08:54 | disposition home or self-care (01) ==
LOC: ONCMED 08:21
PROVIDERS: PCP Family Medicine; Visit Provider Internal Medicine Rheumatology
DX: M05.9 Rheumatoid arthritis with rheumatoid factor, unspecified (principal); Z51.12 Encounter for antineoplastic immunotherapy; Z80.3 Family history of malignant neoplasm of breast; Z79.899 Other long term (current) drug therapy
CPT/HCPCS: 80076; 82565; 85025; 86140; 96365; 96375; A4222; J0129; J1200; J7050

== ENCOUNTER → 2024-01-19 14:31 | Outpatient (BNVA) | payer MEDICARE, OTHER, SELFPAY | PROVIDERS: PCP Family Medicine; Visit Provider Orthopaedic Surgery | DX: M54.12 Radiculopathy, cervical region (principal) | CPT/HCPCS: 72050; 99204 ==

== ENCOUNTER → 2024-01-24 13:35 | Outpatient (BNVA) | payer MEDICARE, OTHER, SELFPAY | PROVIDERS: PCP Family Medicine; Visit Provider Dermatology | DX: L72.0 Epidermal cyst (principal); L81.4 Other melanin hyperpigmentation; D22.71 Melanocytic nevi of right lower limb, including hip; D80.1 Nonfamilial hypogammaglobulinemia; L23.9 Allergic contact dermatitis, unspecified cause | CPT/HCPCS: 11102; 99214 ==

== ENCOUNTER → 2024-02-06 14:18 | Outpatient (BNVA) | payer MEDICARE, OTHER, SELFPAY | PROVIDERS: PCP Family Medicine; Visit Provider Dermatology | DX: D48.5 Neoplasm of uncertain behavior of skin (principal) | CPT/HCPCS: 11402; 12032; 99212 ==

== ENCOUNTER 2024-02-14 07:58 | Oncology outpatient (recurring) (ONCR) | payer MEDICARE, OTHER, SELFPAY ==
[2024-02-14 08:05] VITALS: BP 161/81; PULSE 72; RESP 16; TEMP 36.2; O2SAT 99
[2024-02-14] MEDS: acetaminophen 325 mg Tablet 650 MG PO (08:21)
[2024-02-14] MEDS: sodium chloride 0.9% 250 ML 75 ML IV (08:22)
[2024-02-14] MEDS: diphenhydrAMINE 50 mg/mL SDV 1mL 25 MG IVP (08:26)
[2024-02-14] MEDS: abatacept 750 MG in sodium chloride 0.9% (100 ml) 100 ML 200 MG IV (09:06)
[2024-02-14 09:54] VITALS: BP 173/80; PULSE 62; TEMP 36.4; O2SAT 98
== END 2024-02-27 23:59 | disposition home or self-care (01) ==
LOC: ONCMED 07:59
PROVIDERS: PCP Family Medicine; Visit Provider Internal Medicine Rheumatology
DX: M05.9 Rheumatoid arthritis with rheumatoid factor, unspecified (principal); Z79.899 Other long term (current) drug therapy
CPT/HCPCS: 96365; 96375; J0129; J1200; J7050

== ENCOUNTER 2024-02-17 08:35 | Outpatient (CLI) | payer MEDICARE, OTHER, SELFPAY ==
--- NOTE | 2024-02-17 08:45 | MR_ITS ---
WS: [id number] MRI CERVICAL SPINE NONCONTRAST TECHNIQUE: Sagittal T1, T2 and STIR imaging. Axial T2, gradient, and fiesta imaging. CLINICAL INFORMATION: Neck Pain COMPARISON: None. FINDINGS: Straightening of the normal cervical lordosis. Moderate spondylitic changes. Disc osteophyte extrusio n at RIGHT C6-7 with impingement on the RIGHT ventral cervical cord with mild to moderate central can al stenosis. Disc osteophyte extrusion measures 6 x 9.5 mm AP by craniocaudal. C2-C3: Tiny shallow central disc osteophyte protrusion with slight indentation on the cervical cord. Mild central canal stenosis. Foramen are patent. C3-C4: Disc osteophyte complex with mild central canal stenosis and slight indentation of the LEFT ve ntral cervical cord. Moderate LEFT greater than RIGHT bony foraminal narrowing. Mild facet arthropath y. C4-C5: Disc osteophyte complex with moderate central canal stenosis. Severe LEFT greater than RIGHT b erika foraminal narrowing. Moderate facet arthropathy. C5-C6: Disc osteophyte complex with mild to moderate central canal stenosis. Severe LEFT and moderate RIGHT bony foraminal narrowing. Mild facet arthropathy with uncovertebral joint hypertrophy. Tiny am ount of myelomalacia in the cervical cord. C6-C7: RIGHT paracentral disc osteophyte extrusion impinges the RIGHT ventral cervical cord with mild to moderate central canal stenosis. Severe RIGHT proximal foraminal narrowing. LEFT foramen is paten t. Slight inferior extension of disc osteophyte material. C7-T1: Mild to moderate RIGHT bony foraminal narrowing. Spinal canal is patent. Visualized brain stem structures: Normal. Prevertebral soft tissues: Normal. MR/MR cervical spin wo con* [id number] IMPRESSION: 1. Straightening of the normal cervical lordosis with moderate spondylitic mary nges. 2. RIGHT paracentral disc osteophyte extrusion C6-7 with mild to moderate cent ral canal stenosis. Severe RIGHT proximal foraminal narrowing. Recommend spine surgery consultation. Disc material measures 6.0 x 9.5 mm AP by craniocaudal. 3. Moderate central canal stenosis C4-5 and mild to moderate central canal lovely nosis C5-6 due to disc osteophyte complexes. Myelomalacia in the cervical cord at these levels 4. Multilevel moderate to severe bony foraminal narrowing worse at LEFT C3-C4, bilateral C4-5 worse on the LEFT, LEFT C5-C6. 5. Mild to moderate bony foraminal narrowing RIGHT C7-T1.
== END 2024-02-17 08:36 | disposition home or self-care (01) ==
LOC: RAD 08:35
PROVIDERS: PCP Family Medicine; Visit Provider Orthopaedic Surgery
DX: M47.892 Other spondylosis, cervical region (principal); M25.78 Osteophyte, vertebrae; M48.02 Spinal stenosis, cervical region; M99.61 Osseous and subluxation stenosis of intervertebral foramina of cervical region; M99.62 Osseous and subluxation stenosis of intervertebral foramina of thoracic region
CPT/HCPCS: 72141

== ENCOUNTER → 2024-02-20 11:07 | Outpatient (BNVA) | payer MEDICARE, OTHER, SELFPAY | PROVIDERS: PCP Family Medicine; Visit Provider Dermatology | DX: Z87.2 Personal history of diseases of the skin and subcutaneous tissue (principal) | CPT/HCPCS: 17262 ==

== ENCOUNTER → 2024-02-23 14:35 | Outpatient (BNVA) | payer MEDICARE, OTHER, SELFPAY | PROVIDERS: PCP Family Medicine; Visit Provider Orthopaedic Surgery | DX: Z09 Encounter for follow-up examination after completed treatment for conditions other than malignant neoplasm (principal) | CPT/HCPCS: 36415; 80053; 81001; 85025; 87086; 99214 ==

== ENCOUNTER → 2024-03-09 09:25 | Outpatient (BNVA) | payer MEDICARE, OTHER, SELFPAY | PROVIDERS: PCP Family Medicine; Visit Provider Family Medicine | DX: Z01.818 Encounter for other preprocedural examination (principal) | CPT/HCPCS: 81003; 87086 ==

== ENCOUNTER 2024-03-12 10:02 | Inpatient (IN) | payer MEDICARE, OTHER, SELFPAY ==
[2024-03-12] VITALS (28 sets, daily range): BP systolic 112–159; BP diastolic 56–84; PULSE 71–87; RESP 12–20; TEMP 36.1–36.7; O2SAT 90–99; BMI 24.4
--- NOTE | 2024-03-12 06:13 | P.ANESASSM_ITS ---
Pre-Anesthetic Assessment Height/Weight: Height 5 ft 5 in Weight 147 lb Temp Pulse Resp BP Pulse Ox O2 Del Method 97.6 F 82 20 H 155/82 96 Room Air 03/12/24 06:01 03/12/24 06:01 03/12/24 06:01 03/12/24 06:01 03/12/24 06:01 03/12/24 06:01 Preop Diagnosis: Cervical spondylosis with myelopathy Operation Date: 03/12/24 07:00 Proposed Procedures p Anterior Cervical Discectomy & Fusion ACDF w/ Anterior Interbody Fusion w/ Cage w/ Instrumentation w/ Allograft w/ Navigation(Not Applicable) - Jake Orozco, DO Was Beta Carrie taken within 24 hours: N/A Was Clonidine taken within 24 hours: N/A Last intake: 9pm Social Tobacco and No alcohol Exam alert, oriented x 3, clear to auscultation bilaterally and regular rate & rhythm Airway Submandibular: within normal limits Cervical ROM: within normal limits Mallampati: Class II Dentition: false Anesthetic Plan ASA status: 3 Anesthesia: General Other: No prior issues with anesthesia NPO since yesterday Labs from 02/23/2024 reviewed and acceptable for procedure Patient did have a mildly positive UA, culture performed and no antibiotics were needed History of GERD, on Protonix Hypothyroidism on Synthroid Chronic pain, takes hydrocodone METs greater than 4 Plan for GETA Medications/Allergies Home Medications Medication Instructions Recorded Confirmed Last Taken Type calcium carbonate (Calcium 500) 500 mg PO BID 10/26/21 03/09/24 03/08/24 History levothyroxine 137 mcg tablet 137 mcg PO QAM #30 tabs 05/03/23 03/09/24 03/08/24 Rx alendronate 70 mg tablet See Rx Instructions .Route 08/30/23 03/09/24 03/03/24 Rx .COMPLEX #12 tabs cholecalciferol (vitamin D3) 50 50 mcg PO .Every other day 10/06/23 03/09/24 03/08/24 History mcg (2,000 unit) capsule pantoprazole 40 mg tablet,delayed See Rx Instructions .Route 10/06/23 03/09/24 03/08/24 Rx release .COMPLEX #60 tabs abatacept (with maltose) [Orencia IV .Qmonth 12/12/23 03/09/24 Unknown History (with maltose)] leflunomide 20 mg tablet 20 mg PO DAILY #90 tabs 12/12/23 03/09/24 03/08/24 Rx baclofen 20 mg tablet 20 mg PO BID #60 tabs 12/29/23 03/09/24 03/08/24 Rx gabapentin 300 mg capsule 1,200 mg (4 x 300 mg) PO DAILY 01/25/24 03/09/24 03/08/24 Rx #120 caps hydroxychloroquine 200 mg tablet 200 mg PO BID #180 tabs 01/25/24 03/09/24 03/08/24 Rx Bone Growth Stimulator #1 ea 03/05/24 Unknown Rx Allergies Allergy/AdvReac Type Severity Reaction Status Date / Time meperidine [From Demerol] Allergy vomiting Verified 03/09/24 09:35 [facility] Anesthesia Medical History Family history of breast cancer Vitamin D deficiency Greater trochanteric pain syndrome of left lower extremity Dyslipidemia Mixed incontinence GERD (gastroesophageal reflux disease) Tobacco dependency COPD (chronic obstructive pulmonary disease) Osteoporosis Depression with anxiety Fall Bilateral carpal tunnel syndrome Seropositive rheumatoid arthritis of multiple sites Hypothyroid High risk medication use Surgical History History of bladder suspension procedure (03/2022) History of tubal ligation Hx of bladder repair surgery cystocele repair History of hysterectomy Hx of section Family History Sister , 46 Breast cancer Mother Hypercholesteremia Thyroid disease Diabetes Sister , 24 Breast cancer Family/Other Breast cancer paternal and maternal aunts, several cousins Father Hypertension Denies family history of Colon cancer Ovarian cancer Heart disease Uterine cancer Stroke Social History Smoking and tobacco/nicotine status: never used tobacco/nicotine Alcohol intake: current Alcohol intake frequency: holidays/special occasions only Substance/Drug Use: never Adopted: No Caregiver/support person: No Lives independently: Yes service: No Current occupational status: employed, unemployed and retired Do you think of yourself as: Straight/Heterosexual Current gender identity: Female Female Reproductive History Spontaneous abortions: No Data Anesthesia Cardiac Studies: No Data to Display
[2024-03-12] MEDS: sodium chloride 0.9% 1,000 ML 30 ML IV (06:27)
--- NOTE | 2024-03-12 06:36 | W.PM.OPSUD ---
Surgery/Procedure H&P Update DATE OF PROCEDURE: March 12, 2024 DATE H&P PERFORMED: 03/09/24 H&P UPDATE INFORMATION: I have reviewed H&P completed within last 30 days, I have examined patient prior to procedure and No changes to prior documentation PREOP DIAGNOSIS: Cervical spondylosis with myelopathy PLANNED PROCEDURE: Operation Date: 03/12/24 07:00 Proposed Procedures p Anterior Cervical Discectomy & Fusion ACDF w/ Anterior Interbody Fusion w/ Cage w/ Instrumentation w/ Allograft w/ Navigation(Not Applicable) - Jake Orozco DO
[2024-03-12] MEDS: ceFAZolin 2,000 mg SDV 2000 MG IVP ×3 (07:05→23:52)
[2024-03-12] MEDS: lidocaine-epi 2% PF 1:200,000 20 mL SDV XX (07:42)
--- NOTE | 2024-03-12 10:25 | PM.OP ---
Operative Report Date of procedure: March 12, 2024 Pre-op diagnosis: Cervical spondylosis with myelopathy Post-op diagnosis: same Procedure done: 1. Anterior diskectomy C3/4 2. Anterior diskectomy C4/5 3. Anterior diskectomy C5/6 4. Anterior discectomy C6/7 5. Insertion of cage C3/4 6. Insertion of cage C4/5 7. Insertion of cage C5/6 8. Insertion of Cage C6/7 9. Instrumentation with anterior plate from C3-C7 10. Use of allograft Surgeon: Jake Orozco DO Estimated blood loss (mL): 25 Procedure: 1. Anterior diskectomy C3/4 2. Anterior diskectomy C4/5 3. Anterior diskectomy C5/6 4. Anterior discectomy C6/7 5. Insertion of cage C3/4 6. Insertion of cage C4/5 7. Insertion of cage C5/6 8. Insertion of Cage C6/7 9. Instrumentation with anterior plate from C3-C7 10. Use of allograft The patient was taken to the operating room, where he underwent general endotracheal anesthesia without complications. He was then positioned supine on the operating table, and all areas of impingement were well padded. The arms were carefully padded and tucked at his sides. A roll was placed between the shoulder blades.. An x-ray was done to determine the appropriate level for the skin incision. The entire neck was then sterilely prepped and draped in the usual fashion. Neuromonitoring was attached prior to prepping. A transverse skin incision was made and carried down to the platysma muscle. This was then split in line with its fibers. Blunt dissection was carried down medial to the carotid sheath and lateral to the trachea and esophagus until the anterior cervical spine was visualized. A needle was placed into a disc and an x-ray was done to determine its location. The longus colli muscles were then elevated bilaterally with the electrocautery unit. Self-retaining retractors were placed deep to the longus colli muscle. Attention was brought to the C3/4 level that was confirmed on x-ray. A caspar pin was placed into the C3 vertebrae and the C4 vertebrae. The disk space was then distracted. The microscope was then brought in. A radical anterior discectomies were performed at C3/4. This included complete removal of the anterior annulus, nucleus, and posterior annulus. The posterior longitudinal ligament was removed as were the posterior osteophytes. Foraminotomies were then accomplished bilaterally. This was done using a high speed ronan, kerrison rongeurs and curretes Once all of this was accomplished, the curved currette was used to check for any residual compression. The central canal was wide open as were the foramen. A high-speed bur was used to remove the cartilaginous endplates above and below the interspace. Bleeding cancellous bone was exposed. The disc space were measured and appropriate size cage were placed sterilely onto the field. Allograft graft was packed into the cages. The cage was then placed and there was good juxtaposition against the bleeding decorticated surfaces and good distraction of each interspace. Attention was brought to the next interspace. The Limington pins were removed. Bone wax was used to prevent any bleeding from occurring at the pin sites. Attention was brought to the C4/5 level that was confirmed on x-ray. A caspar pin was placed into the C4 vertebrae and the C5 vertebrae. The disk space was then distracted. The microscope was then brought in. A radical anterior discectomies were performed at C4/5. This included complete removal of the anterior annulus, nucleus, and posterior annulus. The posterior longitudinal ligament was removed as were the posterior osteophytes. Foraminotomies were then accomplished bilaterally. This was done using a high speed ronan, kerrison rongeurs and curretes Once all of this was accomplished, the curved currette was used to check for any residual compression. The central canal was wide open as were the foramen. A high-speed bur was used to remove the cartilaginous endplates above and below the interspace. Bleeding cancellous bone was exposed. The disc space were measured and appropriate size cage were placed sterilely onto the field. Allograft graft was packed into the cages. The cage was then placed and there was good juxtaposition against the bleeding decorticated surfaces and good distraction of each interspace. Attention was brought to the next interspace. The Limington pins were removed. Bone wax was used to prevent any bleeding from occurring at the pin sites. Attention was brought to the C5/6 level that was confirmed on x-ray. A caspar pin was placed into the C5 vertebrae and the C6 vertebrae. The disk space was then distracted. The microscope was then brought in. A radical anterior discectomies were performed at C5/6. This included complete removal of the anterior annulus, nucleus, and posterior annulus. The posterior longitudinal ligament was removed as were the posterior osteophytes. Foraminotomies were then accomplished bilaterally. This was done using a high speed ronan, kerrison rongeurs and curretes Once all of this was accomplished, the curved currette was used to check for any residual compression. The central canal was wide open as were the foramen. A high-speed bur was used to remove the cartilaginous endplates above and below the interspace. Bleeding cancellous bone was exposed. The disc space were measured and appropriate size cage were placed sterilely onto the field. Allograft graft was packed into the cages. The cage was then placed and there was good juxtaposition against the bleeding decorticated surfaces and good distraction of each interspace. Attention was brought to the next interspace. The Limington pins were removed. Bone wax was used to prevent any bleeding from occurring at the pin sites. Attention was brought to the C6/7 level that was confirmed on x-ray. A caspar pin was placed into the C6 vertebrae and the C7 vertebrae. The disk space was then distracted. The microscope was then brought in. A radical anterior discectomies were performed at C6/7. This included complete removal of the anterior annulus, nucleus, and posterior annulus. The posterior longitudinal ligament was removed as were the posterior osteophytes. Foraminotomies were then accomplished bilaterally. This was done using a high speed ronan, kerrison rongeurs and curretes Once all of this was accomplished, the curved currette was used to check for any residual compression. The central canal was wide open as were the foramen. A high-speed bur was used to remove the cartilaginous endplates above and below the interspace. Bleeding cancellous bone was exposed. The disc space were measured and appropriate size cage were placed sterilely onto the field. Allograft graft was packed into the cages. The cage was then placed and there was good juxtaposition against the bleeding decorticated surfaces and good distraction of each interspace. The Limington pins were removed. Bone wax was used to prevent any bleeding from occurring at the pin sites. The appropriate size anterior cervical locking plate was chosen and bent into gentle lordosis. Two screws were then placed into each of the vertebral bodies at C3, C4, C5, C6 and C7. There was excellent purchase. A final x-ray was done confirming good position of the hardware and Cages. The locking screws were then applied, also with excellent purchase. Following a final copious irrigation, there was good hemostasis and no dural leaks. The carotid pulse was strong. The wounds were then closed in layers using 2-0 Vicryl suture for the platysma muscle, 2-0 Vicryl suture for the subcutaneous tissue, and 4-0 monocryl suture in a subcuticular skin closure. Glue was placed followed by application of a sterile dressing. The drain was hooked to bulb suction. A soft collar was applied. The patient was then carefully returned to the supine position on his hospital bed where he was reversed and extubated and taken to the recovery room having tolerated the procedure well.
--- NOTE | 2024-03-12 10:26 | SUR.PHASEI ---
0904 SCD sleeves on pump and working.
--- NOTE | 2024-03-12 11:45 | ANE.PACU2 ---
Inpatient post-anesthesia follow up: Airway intact: Yes Vital signs: Temperature 97.0 F Pulse Rate 71 Respiratory Rate 17 Blood Pressure 155/83 Pulse Oximetry 96 Oxygen Delivery Me thod Room Air Oxygen Flow Rate 3 Fraction of Inspir ed Oxygen Hydration adequate: Yes Nausea and vomiting: No Pain level: 1 Mental status: Baseline
--- NOTE | 2024-03-12 12:49 | XR_ITS ---
WS: [id number] C-ARM RADIOGRAPHS CERVICAL SPINE; 4 IMAGES HISTORY: OR PIC, ACDF COMPARISON: None available. Patient is intubated. Anterior cervical fusion begins at C3 through C7. Alignment appears appropriat e on the imaging submitted. XR/XR cervical spine 3V* [id number] IMPRESSION: Intraoperative imaging during cervical fusion.
[2024-03-12] MEDS: lactated ringers 1,000 ML 90 ML IV ×2 (12:50→23:42)
[2024-03-12] MEDS: ketorolac 30 mg/mL INJ IVP (15:19)
[2024-03-12] MEDS: HYDROcodone-acetaminophen 5-325 mg Tablet PO ×2 (15:19→21:41)
[2024-03-12] MEDS: docusate sodium 100 mg Capsule PO (18:01)
[2024-03-12] MEDS: pantoprazole DR 40 mg Tablet PO (18:01)
[2024-03-12] MEDS: baclofen 10 mg Tablet 20 MG PO (18:01)
[2024-03-12] MEDS: hydroxychloroquine 200 mg Tablet PO (18:01)
[2024-03-12] MEDS: calcium carbonate 500 mg Chew Tablet PO (18:01)
[2024-03-13] VITALS: BP 116/73; PULSE 75; RESP 17; TEMP 36.4; O2SAT 90
[2024-03-13] MEDS: HYDROcodone-acetaminophen 5-325 mg Tablet PO (03:42)
[2024-03-13] MEDS: nicotine 14 mg Patch 1 PATCH TRANSDERMA (03:43)
[2024-03-13 04:11] VITALS: BP 143/76; PULSE 81; RESP 17; TEMP 36.6; O2SAT 94
[2024-03-13] MEDS: levothyroxine 137 mcg Tablet PO (06:01)
[2024-03-13] MEDS: ceFAZolin 2,000 mg SDV 2000 MG IVP (06:11)
[2024-03-13] MEDS: ketorolac 30 mg/mL INJ IVP (06:18)
[2024-03-13 07:37] VITALS: BP 148/76; PULSE 79; RESP 17; TEMP 36.6; O2SAT 95
--- NOTE | 2024-03-13 07:45 | P.DS_ITS ---
Discharge Providers Date of Admission: 03/12/24 10:02 Date of Discharge: March 13, 2024 Attending Provider at Admission: Jake Orozco DO Attending Provider at Discharge: Jake Orozco DO Primary Care Provider: Cm Conley DO Reason for Visit Reason for Visit: M54.12 Physical Exam Narrative: Patient doing well pain controlled. She was able to eat a sandwich. Good strength in all extremities. Urinary Catheter Management: Iverson: Cath Placed During This Visit: yes, but has since been removed by the nurse Reason for Continuing Indwelling Catheter: Decision to DC Catheter Urinary Catheter Date of Insertion: 03/12/24 Urinary Catheter Time of Insertion: 07:15 Date Urinary Catheter Removed: 03/13/24 Time Urinary Catheter Discontinued: 06:04 Discharge Data Studies Completed and Pending Completed Studies During Hospitalization Category Date Time Status XR cervical spine 3V* [id number] Routine Exams 03/12/24 12:49 Completed Pending at discharge Category Date Time Status C-arm Fluoroscopy [id number] Routine Exams 03/12/24 05:58 Taken Radiology Impressions Cervical Spine X-Ray 03/12/24 12:49 IMPRESSION: Intraoperative imaging during cervical fusion. Laboratory Results Blood Type O Positive 03/12/24 06:15 Rho(D) Type Rh positive 03/12/24 06:15 Antibody Screen Negative 03/12/24 06:15 Vitals Last Vital Signs Temp 97.9 F 03/13/24 07:37 Pulse 79 03/13/24 07:37 Resp 17 03/13/24 07:37 BP 148/76 03/13/24 07:37 Pulse Ox 95 03/13/24 07:37 O2 Del Method Nasal Cannula 03/13/24 07:37 O2 Flow Rate 3 03/12/24 11:55 Discharge Plan Discharge Patient Disposition: Home Condition: Good Prescriptions: New hydrocodone-acetaminophen 5-325 mg tablet 1 - 2 tab PO .Q4-6H Qty: 40 0RF Continued leflunomide 20 mg tablet 20 mg PO DAILY Qty: 90 1RF cholecalciferol (vitamin D3) 50 mcg (2,000 unit) capsule 50 mcg PO .Every other day pantoprazole 40 mg tablet,delayed release (DR/EC) See Rx Instructions .ROUTE .COMPLEX Qty: 60 11RF Dose Instruction: TAKE 1 TABLET BY MOUTH TWICE DAILY Rx Instructions: TAKE 1 TABLET BY MOUTH TWICE DAILY. baclofen 20 mg tablet 20 mg PO BID Qty: 60 2RF levothyroxine 137 mcg tablet 137 mcg PO QAM Qty: 30 11RF alendronate 70 mg tablet See Rx Instructions .ROUTE .COMPLEX Qty: 12 4RF Dose Instruction: TAKE 1 TABLET BY MOUTH EVERY 7 DAYS ON tuesday Rx Instructions: TAKE 1 TABLET BY MOUTH EVERY 7 DAYS ON tuesday gabapentin 300 mg capsule 1,200 mg PO DAILY Qty: 120 5RF Rx Instructions: take 2 caps AM and 2 caps PM by mouth hydroxychloroquine 200 mg tablet 200 mg PO BID Qty: 180 1RF Hold Instructions: Doctor's Order (DME) Bone Growth Stimulator See Rx Instructions .Route .MEDSUPPLY Qty: 1 0RF Rx Instructions: As directed abatacept (with maltose) 250 mg Recon Soln See Rx Instructions .ROUTE .COMPLEX Rx Instructions: GIVE intravenously PER iv ONCE MONTHLY calcium carbonate [Calcium 500] 500 mg calcium (1,250 mg) tablet,chewable 500 mg PO BID Discharge Orders: Discharge Order (Routine); Ordered 03/13/24 Ordered By: Jake Orozco Discharge Diet: Advance as tolerated Discharge Activity: Limit activity as instructed Patient Instructions: Acute Wound Care (DC), Opioid Safety, Post Anesthesia Care Activity Restrictions/Additional Instructions: Thank you for choosing [facility] for your care! The following is a list of instructions, from your provider, to follow upon your discharge to ensure you have the optimal recovery from your recent injury or surgery. Anterior Cervical Discectomy and Fusion: What to Expect at Home Your Recovery Follow-up care is a martinez part of your treatment and safety. Be sure to make and go to all appointments, and call your doctor if you are having problems. If you do not already have a follow-up appointment made, call office in the next 1-3 days to make follow up appointment for 2 weeks at [phone]. It is also a good idea to know your test results and keep a list of the medicines you take. You can expect your neck to feel stiff or sore after surgery. This should improve in the weeks after surgery. But it may take 4 to 6 months for you to get better completely. You may have trouble sitting or standing in one position for very long and may need pain medicine in the weeks after your surgery. It may take 4 to 6 weeks to get back to your usual activities, but it may depend on what kind of surgery you had. Your throat will feel sore and it may be difficult to swallow for the first 3 days after your surgery. As long as you can get liquids down without difficulty, this should slowly improve, otherwise call our office or seek medical attention if it becomes increasingly difficult to get anything down including liquids. Avoid hot liquids for first 3-5 days. Soothing foods/liquids such as jello, pudding, and luke warm soups are recommended until swallowing improves. Staying elevated will also help, it's advised you keep propped up at while sleeping to help reduce the swelling. You may use an ice pack directly on your incision or around it on the front of your neck, using a cloth to protect your skin; and a heating pad to the back of your neck as needed. Do not use over the counter anti-inflammatory medications (Ibuprofen, Motrin, Aleve, Advil, etc) Taking these meds after having a fusion can delay fusion rates, we recommend you avoid them for the first 3 months after your surgery[address] Dr. Orozco may advise you to work with a physical therapist to strengthen the muscles around your neck and back - this will be discussed at your follow - up appointments. The pain or numbness you were having in your arms before surgery should get better or go away completely. This care sheet gives you a general idea about how long it will take for you to recover. But each person recovers at a different pace. Follow the steps below to get better as quickly as possible. How can you care for yourself at home? Activity ? Rest when you feel tired. Getting enough sleep will help you recover. ? Try to walk each day. Start by walking a little more than you did the day before. Bit by bit, increase the amount you walk. Walking boosts blood flow and helps prevent pneumonia and constipation. Walking may also decrease your muscle soreness after surgery. ? No lifting anything that is more that 5 pounds. This may include heavy grocery bags and milk containers, a heavy briefcase or backpack, cat litter or dog food bags, a child, or a vacuum freight car cleaner. ? Avoid strenuous activities, such as bicycle riding, jogging, weightlifting, or aerobic exercise, until your doctor says it is okay. ? Do not drive until your follow-up visit after your surgery, or until your doctor says it isokay. ? Avoid taking long car trips for 2 to 4 weeks after surgery. Your neck may become tired and painful from sitting too long in one position. ? You will probably need to take 4 to 6 weeks off from work. It depends on the type of work you do and how you feel. ? You may have sex as soon as you feel able, but avoid positions that put stress on your neck or cause pain. Diet ? You can eat your normal diet. If your stomach is upset, try bland, low-fat foods like plain rice, broiled chicken, toast, and yogurt ? Drink plenty of fluids. If you have kidney, heart, or liver disease and have to limit fluids, talk with your doctor before you increase the amount of fluids you drink. ? You may notice that your bowel movements are not regular right after your surgery. This is common. Try to avoid constipation and straining with bowel movements. You may want to take a fiber supplement every day. If you have not had a bowel movement after a couple of days, ask your doctor about taking a mild laxative. Medicines ? Take pain medicines exactly as directed. 1. If Dr. Orozco gave you a prescription medicine for pain, take lt as prescribed. 2. Do not take two or more pain medicines at the same time unless the doctor told you to. Many pain medicines have acetaminophen, which is Tylenol. Too much acetaminophen {Tylenol) can be harmful. 3. If you think your pain pill is making you sick to your stomach: 4. Take your pills after meals (unless your doctor has told you not to). 5. Ask your Dr. for a different pain pill. Incisioncare ? Remove your dressing 48hours after your surgery. Ok to shower and get the incision wet. Do not overtly wash your incision. When done, pad dry, leave open to air thereafter. Avoid creams and ointments directly on your incision. ? Your sutures in the incision will dissolve and fall out on their own. ? Keep the area clean and dry. You may cover it with a gauze bandage if it weeps or rubs against clothing; if you choose to do this, change the dressing everyday. Other instructions ? Use a heating pad, hot water bottle, or gentle massage on your back to reduce stiffness. Avoid putting heat on your incision When should you call for help? ? Call 911 anytime you think you may need emergency care. For example, call if: ? You pass out (lose consciousness). ? You have sudden chest pain and shortness of breath, or you cough upblood. ? You cannot swallow. ? You have severe pain in your neck or back. ? Call your Dr. or seek immediate medical care if: ? You have pain that does not get better after you take pain pills. ? You have loose stitches, or your incision comes open. ? You have blood or fluid draining from the incision. ? You have signs of infection, such as: 1. Increased pain, swelling, warmth, or redness. 2. Red streaks leading from the site. 3. Pus draining from the site. 4. Swollen lymph nodes in your neck or armpits. 5. A fever. ? You have severe pain in your arms. ? You have new or increased weakness or numbness in your arms. ? Watch closely for any changes in your health, and be sure to contact your doctor if: ? You do not have a bowel movement after taking a laxative. Discharge Attestations Time Spent in Discharge Care*: less than 30 min Quality Metrics Clinical Quality Measures [ No reported AMI, CVA or VTE this stay] Coding Level of Care Code Acute Code for Chg Fwd
[2024-03-13] MEDS: baclofen 10 mg Tablet 20 MG PO (07:51)
[2024-03-13] MEDS: docusate sodium 100 mg Capsule PO (07:52)
[2024-03-13] MEDS: calcium carbonate 500 mg Chew Tablet PO (07:52)
[2024-03-13] MEDS: hydroxychloroquine 200 mg Tablet PO (07:53)
[2024-03-13] MEDS: gabapentin 300 mg Capsule 1200 MG PO (07:53)
[2024-03-13] MEDS: pantoprazole DR 40 mg Tablet PO (07:54)
--- NOTE | 2024-03-13 09:55 | PC.CHAP ---
Pastoral Care Encounter/Spiritual Assessment Type of Contact [] Declined mathematical scientist visit [] Patient/Family/Request visit [] Outpatient visit [] Follow-up visit [] Physician referral [] Code/Alert [x] Routine visit [] Staff referral [] Actively dying [] Patient sleeping [x] Family support [] [] Out of room [] Palliative care [] [] Receiving care in room [] Pre-surgical visit [] Trauma [] Long length of stay [] ICU visit [] Other: Relational/Emotional Strength [x] Patient feels connected with others/family/visitors/staff [] Distress [] Loneliness/isolation [] Abandonment Spirituality of Patient [x] Person of Camila [] Attends Anabaptist of their Camila [x] Believes in Prayer [] Reads Bible or Christianity materials [] There are Spiritual issues to be addressed Life Insurance Agent Interventions [x] Prayer [x] Active listening [] Non-anxious presence [x] Spiritual/emotional support [] Crisis/trauma care [] Spiritual counseling [] Bereavement support [] Provided bereavement packet [] Provided Bible/devotional materials [] Provided toy/stuffed animal, coloring book to patient or family member [] Provided Communion [] Anointing/[place] [] Salvation [x] Completed spiritual assessment [] Other: Impact on Illness or Injury [] Angry [] Fearful [] Anxious [] Often cries [] Exhaustion [] Unable to work [] Unable to attend jewish [] Unable to walk/stand [] Unable to read [] Unable to drive [] Unable to eat/drink [] Unable to sleep [] Unable to be with family [] Patient intubated [] Other: Summary Time spent with patient 5 min
== END 2024-03-13 11:17 | disposition home or self-care (01) | DRG 473 ==
LOC: MEDSURG 10:07
PROVIDERS: Admitting Provider Orthopaedic Surgery; PCP Family Medicine; Visit Provider Orthopaedic Surgery
PROC: 0RB30ZZ Excision of Cervical Vertebral Disc, Open Approach (ICD-10-PCS; CPT 22551; principal; 2024-03-12 07:00)
DX: M47.12 Other spondylosis with myelopathy, cervical region (principal); E78.5 Hyperlipidemia, unspecified; K21.9 Gastro-esophageal reflux disease without esophagitis; J44.9 Chronic obstructive pulmonary disease, unspecified; M81.0 Age-related osteoporosis without current pathological fracture; F41.8 Other specified anxiety disorders; M05.9 Rheumatoid arthritis with rheumatoid factor, unspecified; E03.9 Hypothyroidism, unspecified; Z90.710 Acquired absence of both cervix and uterus
CPT/HCPCS: 36415; 51702; 72040; 76000; 81003; 86850; 86900; 87086; 97116; 97161; C1713; C1763; C9359; J0330; J0690; J1100; J1170; J1885; J2250; J2371; J2405; J2704; J3010; J3490; J7030; J7120

== ENCOUNTER 2024-03-27 07:55 | Oncology outpatient (recurring) (ONCR) | payer MEDICARE, OTHER, SELFPAY ==
[2024-03-27 08:03] VITALS: BP 144/83; PULSE 89; RESP 16; TEMP 36.9; O2SAT 99
[2024-03-27] MEDS: acetaminophen 325 mg Tablet 650 MG PO (08:21)
[2024-03-27] MEDS: diphenhydrAMINE 50 mg/mL SDV 1mL 25 MG IVP (08:21)
[2024-03-27] MEDS: abatacept 750 MG in sodium chloride 0.9% (100 ml) 100 ML 200 MG IV (09:00)
[2024-03-27 09:35] VITALS: BP 129/83; PULSE 85; RESP 16; TEMP 36.9; O2SAT 91
== END 2024-03-29 23:59 | disposition home or self-care (01) ==
PROVIDERS: PCP Family Medicine; Visit Provider Internal Medicine Rheumatology
DX: M05.9 Rheumatoid arthritis with rheumatoid factor, unspecified (principal); Z79.899 Other long term (current) drug therapy
CPT/HCPCS: 96365; 96375; A4222; J0129; J1200

== ENCOUNTER → 2024-03-29 08:37 | Outpatient (BNVA) | payer MEDICARE, OTHER, SELFPAY | PROVIDERS: PCP Family Medicine; Visit Provider Orthopaedic Surgery | DX: Z98.1 Arthrodesis status (principal) | CPT/HCPCS: 99024 ==

== ENCOUNTER → 2024-04-05 11:00 | Outpatient (BNVA) | payer MEDICARE, OTHER, SELFPAY | PROVIDERS: PCP Family Medicine; Visit Provider Family Medicine | DX: E03.9 Hypothyroidism, unspecified (principal); E55.9 Vitamin D deficiency, unspecified; G56.03 Carpal tunnel syndrome, bilateral upper limbs | CPT/HCPCS: 80053; 84439; 84443 ==

== ENCOUNTER → 2024-04-19 08:39 | Outpatient (BNVA) | payer MEDICARE, OTHER, SELFPAY | PROVIDERS: PCP Family Medicine; Visit Provider Orthopaedic Surgery | DX: Z98.1 Arthrodesis status (principal) | CPT/HCPCS: 72040; 99024 ==

== ENCOUNTER 2024-04-24 07:44 | Oncology outpatient (recurring) (ONCR) | payer MEDICARE, OTHER, SELFPAY ==
[2024-04-24 07:51] VITALS: BP 142/84; PULSE 78; RESP 17; TEMP 36.1; O2SAT 100
[2024-04-24] MEDS: acetaminophen 325 mg Tablet 650 MG PO (08:06)
[2024-04-24] MEDS: diphenhydrAMINE 50 mg/mL SDV 1mL 25 MG IVP (08:06)
[2024-04-24 08:26] LABS: Basophils # 0.1 10^3/uL (0.0-0.1); Basophils % 1.5 %; Eosinophils # 0.4 10^3/uL (0.0-0.8); Hematocrit 40.2 % (36-47); Lymphocytes # 3.2 10^3/uL (0.8-4.8); Lymphocytes % 34.8 %; Mean Corpuscular HGB Conc 33.3 g/dL (30-55); Mean Corpuscular Volume 90.1 fl (85-98); Mean Platelet Volume 11.8 fL (7.4-10.4); Monocytes # 0.9 10^3/uL (0.2-0.9); Monocytes % 10.1 %; Neutrophils # 4.45 10^3/uL (1.8-7.7); Neutrophils % 49.3 %; Nucleated Red Blood Cells % 0 %; Platelet Count 314 10^3/cmm (157-399); Red Blood Count 4.46 10^6/uL (3.85-5.65); Red Cell Distribution Width 14.6 % (12.1-15.1); White Blood Count 9.04 10^3/uL (3.29-11.43)
[2024-04-24] MEDS: abatacept 750 MG in sodium chloride 0.9% (100 ml) 100 ML 200 MG IV (08:31)
[2024-04-24 08:43] LABS: Alanine Aminotransferase < 5 U/L (0-33); Albumin Level 3.8 g/dL (3.5-5.2); Alkaline Phosphatase 104 U/L (35-105); Aspartate Amino Transferase 16 U/L (0-32); Globulin 2.9 g/dL (1.3-4.6); Glomerular Filtration Rate 63.4 mL/min (90-130); Total Bilirubin 0.3 mg/dL (0.15-1.2); Total Protein 6.7 g/dL (6.6-8.7)
[2024-04-24 09:15] VITALS: BP 161/91; PULSE 72; TEMP 37.1; O2SAT 97
== END 2024-04-28 23:59 | disposition home or self-care (01) ==
PROVIDERS: PCP Family Medicine; Visit Provider Internal Medicine Rheumatology
DX: M05.9 Rheumatoid arthritis with rheumatoid factor, unspecified (principal); Z79.899 Other long term (current) drug therapy
CPT/HCPCS: 80076; 82565; 85025; 86140; 96365; 96375; A4222; J0129; J1200

== ENCOUNTER 2024-05-21 07:55 | Oncology outpatient (recurring) (ONCR) | payer MEDICARE, OTHER, SELFPAY ==
[2024-05-21 08:04] VITALS: BP 145/82; PULSE 80; RESP 16; TEMP 36.4; O2SAT 97
[2024-05-21] MEDS: diphenhydrAMINE 50 mg/mL SDV 1mL 25 MG IVP (08:25)
[2024-05-21] MEDS: acetaminophen 325 mg Tablet 650 MG PO (08:25)
[2024-05-21] MEDS: abatacept 750 MG in sodium chloride 0.9% (100 ml) 100 ML 200 MG IV (09:03)
[2024-05-21 09:58] VITALS: BP 138/81; PULSE 68; RESP 16; TEMP 36.2; O2SAT 94
== END 2024-05-29 23:59 | disposition home or self-care (01) ==
PROVIDERS: PCP Family Medicine; Visit Provider Internal Medicine Rheumatology
DX: M05.9 Rheumatoid arthritis with rheumatoid factor, unspecified (principal); Z79.899 Other long term (current) drug therapy
CPT/HCPCS: 96365; 96375; J0129; J1200

== ENCOUNTER → 2024-06-07 07:56 | Outpatient (BNVA) | payer MEDICARE, OTHER, SELFPAY | PROVIDERS: PCP Family Medicine; Visit Provider Orthopaedic Surgery | DX: Z98.1 Arthrodesis status (principal) | CPT/HCPCS: 72040; 99024 ==

== ENCOUNTER 2024-06-18 08:00 | Oncology outpatient (recurring) (ONCR) | payer MEDICARE, OTHER, SELFPAY ==
[2024-06-18 08:20] VITALS: BP 109/76; PULSE 87; TEMP 36.7; O2SAT 98
[2024-06-18] MEDS: sodium chloride 0.9% 250 ML 75 ML IV (08:34)
[2024-06-18] MEDS: acetaminophen 325 mg Tablet 650 MG PO (08:36)
[2024-06-18] MEDS: diphenhydrAMINE 50 mg/mL SDV 1mL 25 MG IVP (08:36)
[2024-06-18] MEDS: abatacept 750 MG in sodium chloride 0.9% (100 ml) 100 ML 200 MG IV (09:29)
[2024-06-18 10:09] VITALS: BP 128/77; PULSE 74; RESP 18; TEMP 36.7; O2SAT 97
== END 2024-06-29 23:59 | disposition home or self-care (01) ==
PROVIDERS: PCP Family Medicine; Visit Provider Internal Medicine Rheumatology
DX: M05.79 Rheumatoid arthritis with rheumatoid factor of multiple sites without organ or systems involvement (principal); F17.210 Nicotine dependence, cigarettes, uncomplicated; G56.03 Carpal tunnel syndrome, bilateral upper limbs; Z71.89 Other specified counseling; Z79.52 Long term (current) use of systemic steroids; Z79.899 Other long term (current) drug therapy
CPT/HCPCS: 96365; 96375; 99214; A4222; J0129; J1200; J7050

== ENCOUNTER → 2024-06-22 09:43 | Outpatient (BNVA) | payer MEDICARE, OTHER, SELFPAY | PROVIDERS: PCP Family Medicine; Visit Provider Nurse Practitioner Family | DX: B35.3 Tinea pedis (principal); D22.112 Melanocytic nevi of right lower eyelid, including canthus; L81.4 Other melanin hyperpigmentation; Z87.2 Personal history of diseases of the skin and subcutaneous tissue; T14.8XXA Other injury of unspecified body region, initial encounter; X58.XXXA Exposure to other specified factors, initial encounter | CPT/HCPCS: 99214 ==

== ENCOUNTER → 2024-06-29 12:29 | Outpatient (BNVA) | payer MEDICARE, OTHER, SELFPAY | PROVIDERS: PCP Family Medicine; Referring Provider Internal Medicine Rheumatology; Visit Provider Specialist | DX: R20.0 Anesthesia of skin (principal); R20.2 Paresthesia of skin; G62.9 Polyneuropathy, unspecified; G62.89 Other specified polyneuropathies; G56.03 Carpal tunnel syndrome, bilateral upper limbs | CPT/HCPCS: 95913 ==

== ENCOUNTER → 2024-07-13 09:28 | Outpatient (BNVA) | payer MEDICARE, OTHER, SELFPAY | PROVIDERS: PCP Family Medicine; Visit Provider Nurse Practitioner Family | DX: B35.3 Tinea pedis (principal) | CPT/HCPCS: 99214 ==

== ENCOUNTER 2024-07-16 07:57 | Oncology outpatient (recurring) (ONCR) | payer MEDICARE, OTHER, SELFPAY ==
[2024-07-16] MEDS: sodium chloride 0.9% 250 ML 75 ML IV (08:30)
[2024-07-16] MEDS: diphenhydrAMINE 50 mg/mL SDV 1mL 25 MG IVP (08:36)
[2024-07-16 08:37] LABS: Basophils # 0.2 10^3/uL (0.0-0.1); Basophils % 2.3 %; Eosinophils # 0.2 10^3/uL (0.0-0.8); Eosinophils % 2.7 %; Lymphocytes # 2.5 10^3/uL (0.8-4.8); Lymphocytes % 31.8 %; Mean Corpuscular HGB Conc 33.5 g/dL (30-55); Mean Corpuscular Hemoglobin 31.6 pg (27-33); Mean Corpuscular Volume 94.3 fl (85-98); Mean Platelet Volume 11.2 fL (7.4-10.4); Monocytes # 0.7 10^3/uL (0.2-0.9); Monocytes % 8.5 %; Neutrophils % 54.4 %; Nucleated Red Blood Cells % 0 %; Platelet Count 412 10^3/cmm (157-399); Red Blood Count 4.56 10^6/uL (3.85-5.65); Red Cell Distribution Width 14.6 % (12.1-15.1); White Blood Count 7.89 10^3/uL (3.29-11.43)
[2024-07-16] MEDS: acetaminophen 325 mg Tablet 650 MG PO (08:37)
[2024-07-16 08:50] VITALS: BP 136/86; PULSE 83; RESP 16; TEMP 36.6; O2SAT 99
[2024-07-16 08:50] LABS: Alanine Aminotransferase 6 U/L (0-33); Alkaline Phosphatase 134 U/L (35-105); Aspartate Amino Transferase 17 U/L (0-32); C Reactive Protein 7.5 mg/L (0.0-4.9); Creatinine Clr Calc Pharmacy 54.5487; Globulin 3.3 g/dL (1.3-4.6); Glomerular Filtration Rate 56.2 mL/min (90-130); Total Bilirubin 0.4 mg/dL (0.15-1.2); Total Protein 7.3 g/dL (6.6-8.7)
[2024-07-16] MEDS: abatacept 750 MG in sodium chloride 0.9% (100 ml) 100 ML 200 MG IV (09:18)
[2024-07-16 10:00] VITALS: BP 123/80; PULSE 84; RESP 16; TEMP 36.3; O2SAT 99
== END 2024-07-27 23:59 | disposition home or self-care (01) ==
PROVIDERS: PCP Family Medicine; Visit Provider Internal Medicine Rheumatology
DX: M05.9 Rheumatoid arthritis with rheumatoid factor, unspecified (principal); Z79.899 Other long term (current) drug therapy
CPT/HCPCS: 36415; 80076; 82565; 85025; 86140; 96365; 96375; A4222; J0129; J1200; J7050

== ENCOUNTER → 2024-08-10 08:06 | Outpatient (BNVA) | payer MEDICARE, OTHER, SELFPAY | PROVIDERS: PCP Family Medicine; Visit Provider Nurse Practitioner Family | DX: B35.3 Tinea pedis (principal) | CPT/HCPCS: 99214 ==

== ENCOUNTER 2024-08-13 07:58 | Oncology outpatient (recurring) (ONCR) | payer MEDICARE, OTHER, SELFPAY ==
[2024-08-13 08:10] VITALS: BP 115/68; PULSE 83; RESP 18; TEMP 35.7
[2024-08-13] MEDS: sodium chloride 0.9% 250 ML 75 ML IV (08:19)
[2024-08-13] MEDS: acetaminophen 325 mg Tablet 650 MG PO (08:19)
[2024-08-13] MEDS: diphenhydrAMINE 50 mg/mL SDV 1mL 25 MG IVP (08:19)
[2024-08-13] MEDS: abatacept 750 MG in sodium chloride 0.9% (100 ml) 100 ML 200 MG IV (08:49)
[2024-08-13 09:29] VITALS: BP 132/80; PULSE 74; RESP 18; TEMP 36.1; O2SAT 98
== END 2024-08-27 23:59 | disposition home or self-care (01) ==
PROVIDERS: PCP Family Medicine; Visit Provider Internal Medicine Rheumatology
DX: M05.9 Rheumatoid arthritis with rheumatoid factor, unspecified (principal); Z79.899 Other long term (current) drug therapy
CPT/HCPCS: 96365; 96375; A4222; J0129; J1200; J7050; J9999

== ENCOUNTER → 2024-09-04 07:54 | Outpatient (BNVA) | payer MEDICARE, OTHER, SELFPAY | PROVIDERS: PCP Family Medicine; Visit Provider Orthopaedic Surgery | DX: Z98.1 Arthrodesis status (principal) | CPT/HCPCS: 72040; 99213 ==

== ENCOUNTER 2024-09-10 07:57 | Oncology outpatient (recurring) (ONCR) | payer MEDICARE, OTHER, SELFPAY ==
[2024-09-10 08:11] VITALS: BP 126/78; PULSE 90; RESP 16; TEMP 36.7; O2SAT 97
[2024-09-10] MEDS: sodium chloride 0.9% 250 ML 75 ML IV (08:26)
[2024-09-10] MEDS: diphenhydrAMINE 50 mg/mL SDV 1mL 25 MG IVP (08:29)
[2024-09-10] MEDS: acetaminophen 325 mg Tablet 650 MG PO (08:30)
[2024-09-10] MEDS: abatacept 750 MG in sodium chloride 0.9% (100 ml) 100 ML 200 MG IV (09:10)
[2024-09-10 09:54] VITALS: BP 138/81; PULSE 77; RESP 16; TEMP 36.5; O2SAT 97
== END 2024-09-26 23:59 | disposition home or self-care (01) ==
PROVIDERS: PCP Family Medicine; Visit Provider Internal Medicine Rheumatology
DX: M05.9 Rheumatoid arthritis with rheumatoid factor, unspecified (principal); Z79.899 Other long term (current) drug therapy
CPT/HCPCS: 96365; 96375; A4222; J0129; J1200; J7050; J9999

== ENCOUNTER → 2024-09-17 14:44 | Outpatient (BNVA) | payer MEDICARE, OTHER, SELFPAY | PROVIDERS: PCP Family Medicine; Visit Provider Family Medicine | DX: G62.9 Polyneuropathy, unspecified (principal); E55.9 Vitamin D deficiency, unspecified; R79.89 Other specified abnormal findings of blood chemistry | CPT/HCPCS: 80053; 82306; 82607; 82728; 82746; 83540 ==

== ENCOUNTER → 2024-10-04 09:00 | Outpatient (BNVA) | payer MEDICARE, OTHER, SELFPAY | PROVIDERS: PCP Family Medicine; Visit Provider Internal Medicine Rheumatology | DX: M05.79 Rheumatoid arthritis with rheumatoid factor of multiple sites without organ or systems involvement (principal); G56.03 Carpal tunnel syndrome, bilateral upper limbs; Z79.899 Other long term (current) drug therapy; Z71.89 Other specified counseling | CPT/HCPCS: 99214 ==

== ENCOUNTER 2024-10-26 11:30 | Oncology outpatient (recurring) (ONCR) | payer MEDICARE, OTHER, SELFPAY ==
--- NOTE | 2024-10-03 08:00 | CT_ITS ---
WS: [id number] LDCT LUNG CANCER SCREENING TECHNIQUE: Noncontrast CT of the chest with coronal and sagittal reformatted images. CLINICAL INFORMATION: F17.219 - Nicotine dependence, cigarettes, with unspecifi... COMPARISON: 2020 DLP: 48.28 mGy.cm DIvol: Mean CTDIvol: 0.80 (mGy) All CT scans at [facility] use at least one of these dose optimization techniques: automated exposure control; mA and/or kV adjustment per patient size (includes targeted exams where dose is matched to clinical indication); or iterative reconstruction. FINDINGS: Numerous bilateral noncalcified pulmonary nodules largest measuring 6 to 7 mm. Chronic emphysematous changes. No mediastinal or hilar lymphadenopathy. Nodules are new since 2020. These are nonspecific but metastatic disease not excluded. Recommend further evaluation with PET/CT and correlation with clinical history. Aortic calcification. Coronary calcification. No mediastinal or hilar lymphadenopathy. Adrenal glands are normal. Adrenal glands are normal. Tiny esophageal hiatal hernia. CT/CT lung screening [id number] IMPRESSION: Numerous new bilateral pulmonary nodules the largest measuring up t o 7 mm. Metastatic disease not excluded. Recommend further evaluation with PET/ CT. LUNG-RADS: 4B-Suspicious FOLLOW UP: PET/CT recommended
[2024-10-08 08:15] LABS: Basophils # 0.2 10^3/uL (0.0-0.1); Basophils % 2.1 %; Eosinophils # 0.4 10^3/uL (0.0-0.8); Eosinophils % 3.9 %; Hematocrit 37.9 % (36-47); Lymphocytes # 2.9 10^3/uL (0.8-4.8); Lymphocytes % 30.4 %; Mean Platelet Volume 10.9 fL (7.4-10.4); Monocytes # 0.9 10^3/uL (0.2-0.9); Neutrophils % 53.3 %; Nucleated Red Blood Cells % 0 %; Platelet Count 365 10^3/cmm (157-399); Red Blood Count 4.03 10^6/uL (3.85-5.65); Red Cell Distribution Width 14.6 % (12.1-15.1); White Blood Count 9.39 10^3/uL (3.29-11.43)
[2024-10-08 08:44] LABS: Alanine Aminotransferase 7 U/L (0-33); Albumin Level 3.5 g/dL (3.5-5.2); Alkaline Phosphatase 114 U/L (35-105); Aspartate Amino Transferase 14 U/L (0-32); C Reactive Protein 4.6 mg/L (0.0-4.9); Creatinine Clr Calc Pharmacy 60.2385; Globulin 3.3 g/dL (1.3-4.6); Glomerular Filtration Rate 63.4 mL/min (90-130); Total Bilirubin 0.2 mg/dL (0.15-1.2); Total Protein 6.8 g/dL (6.6-8.7)
[2024-10-08] MEDS: diphenhydrAMINE 50 mg/mL SDV 1mL 25 MG IVP (10:04)
[2024-10-08] MEDS: sodium chloride 0.9% 250 ML 75 ML IV (10:04)
[2024-10-08] MEDS: acetaminophen 325 mg Tablet 650 MG PO (10:05)
[2024-10-08] MEDS: abatacept 750 MG in sodium chloride 0.9% (100 ml) 100 ML 200 MG IV (10:39)
[2024-10-08 11:21] VITALS: BP 122/77; PULSE 74; RESP 17; TEMP 36.9; O2SAT 97
--- NOTE | 2024-10-26 10:59 | PETR_ITS ---
PROCEDURE INFORMATION: Exam: PET/CT Skull Base to Mid-thigh Exam date and time: 10/26/2024 12:01 PM Age: 64 years old Clinical indication: Abnormal findings; Numerous new bilateral pulmonary nodules the largest measuring up to 7 mm. ; Additional info: Nicotine dependence LABS AND CLINICAL REPORTS: Glucose: 105 mg/dl Treatment strategy for malignancy (PET staging): Initial Staging (PI) TECHNIQUE: Imaging protocol: Following at least four-hour fasting and following the injection of radiopharmaceutical, low dose CT images were obtained. Then, PET images were obtained. Attenuation corrected images were constructed using the CT scan. Fused images of PET and CT were reviewed. The standardized uptake values (SUV) reported below are maximum values within a region of interest, expressed in gm/ml. Exam includes orbital meatal line to mid-thigh. SUV normalization method: BodyWeight Radiopharmaceutical: 10.72 mCi F-18 FDG (Fluorodeoxyglucose), IV. Time of imaging post radiopharmaceutical administration: 54 minutes Injection site: LEFT AC COMPARISON: 1. CT lung screening [id number] 10/03/2024 8:[address] abdomen pelvis w con* [id number] 05/03/2022 1:27 PM 3. CR XR cervical spine 3V* [id number] 04/19/2024 8:52 AM 4. OT XR cervical spine 3V* [id number] 03/12/2024 6:41 AM FINDINGS: Brain: Visualized brain has normal physiologic uptake. Pharynx: No abnormal uptake. Larynx: No abnormal uptake. Lungs, pleura and trachea: Upper lung predominant emphysematous change. Multiple bilateral pulmonary nodules redemonstrated, index 8 mm right middle lobe nodule on axial image 114 showing SUV max 1.4. Multiple subcentimeter nodule show no FDG uptake. Heart: Normal physiologic uptake. Coronary arteries: Mild coronary artery calcification. Mediastinal space: No abnormal uptake. Liver: No abnormal uptake. Gallbladder and biliary ducts: No abnormal uptake. Pancreas: No abnormal uptake. Spleen: No abnormal uptake. Adrenal glands: No abnormal uptake. Kidneys and ureters: Normal physiologic uptake. Stomach and bowel: No abnormal uptake. Colonic diverticulosis without findings of diverticulitis. Reproductive: The uterus is surgically absent. Vasculature: No abnormal uptake. Moderate to heavy systemic atherosclerotic calcification without aortic aneurysm. Lymph nodes: FDG avid nonenlarged mediastinal and bilateral hilar lymph nodes with [id number]-right hilar calcified nodes. Skeleton: Anterior fusion hardware along the cervical spine with associated FDG uptake that is likely postprocedural given placement in February 2024. Degenerative change along the spine, acromioclavicular and sacroiliac joints, and left hip. Soft tissues: No abnormal uptake in the visualized head, neck, chest, abdomen, pelvis, and extremities. METRICS: Mediastinal blood pool: SUV mean 1.9 Liver uptake: SUV mean 2.1 PET/PET skull to thigh INIT [id number] IMPRESSION: 1. Multiple bilateral pulmonary nodules with very low-level FDG uptake favoring benignity. Consider follow-up chest CT in 6-12 months. 2. FDG-avid nonenlarged mediastinal and bilateral hilar lymph nodes (some calcified), favor granulomatous. 3. Additional chronic and incidental findings as above.
== END 2024-10-27 23:59 | disposition home or self-care (01) ==
LOC: RAD 10-27 00:01 → ONCMED 10-29 09:24
PROVIDERS: Internal Medicine Rheumatology; PCP Family Medicine; Visit Provider Family Medicine
DX: Z53.9 Procedure and treatment not carried out, unspecified reason; R91.8 Other nonspecific abnormal finding of lung field
CPT/HCPCS: 71271; 78815; 80076; 82565; 85025; 86140; 96375; 96413; A4222; A9552; J0129; J1200; J7050; J9999

== ENCOUNTER 2024-11-05 07:52 | Oncology outpatient (recurring) (ONCR) | payer MEDICARE, OTHER, SELFPAY ==
[2024-11-05 08:02] VITALS: BP 132/79; PULSE 88; RESP 17; TEMP 36.8; O2SAT 100
[2024-11-05] MEDS: sodium chloride 0.9% 250 ML 75 ML IV (08:12)
[2024-11-05] MEDS: diphenhydrAMINE 50 mg/mL SDV 1mL 25 MG IVP (08:12)
[2024-11-05] MEDS: acetaminophen 325 mg Tablet 650 MG PO (08:12)
[2024-11-05] MEDS: abatacept 750 MG in sodium chloride 0.9% (100 ml) 100 ML 200 MG IV (08:43)
[2024-11-05 09:28] VITALS: BP 119/75; PULSE 79; RESP 18; TEMP 36.6; O2SAT 95
== END 2024-11-26 23:59 | disposition home or self-care (01) ==
PROVIDERS: PCP Family Medicine; Visit Provider Family Medicine
DX: M05.9 Rheumatoid arthritis with rheumatoid factor, unspecified (principal); Z79.899 Other long term (current) drug therapy
CPT/HCPCS: 96365; 96375; A4222; J0129; J1200; J7050; J9999

== ENCOUNTER → 2024-11-09 08:06 | Outpatient (BNVA) | payer MEDICARE, OTHER, SELFPAY | PROVIDERS: PCP Family Medicine; Visit Provider Nurse Practitioner Family | DX: L81.4 Other melanin hyperpigmentation (principal); L57.8 Other skin changes due to chronic exposure to nonionizing radiation; X32.XXXA Exposure to sunlight, initial encounter; Z87.2 Personal history of diseases of the skin and subcutaneous tissue | CPT/HCPCS: 99213 ==

== ENCOUNTER 2024-12-26 08:00 | Oncology outpatient (recurring) (ONCR) | payer MEDICARE, OTHER, SELFPAY ==
[2024-12-10] MEDS: diphenhydrAMINE 50 mg/mL SDV 1mL 25 MG IVP (08:19)
[2024-12-10] MEDS: abatacept 750 MG in sodium chloride 0.9% (100 ml) 100 ML 200 MG IV (08:56)
[2024-12-10 09:49] VITALS: BP 165/87; PULSE 65; RESP 17; TEMP 36.6; O2SAT 96
--- NOTE | 2024-12-26 07:51 | MM_ITS ---
WS: [id number] BILATERAL SCREENING DIGITAL TOMOSYNTHESIS MAMMOGRAM WITH CAD HISTORY: SCREENING COMPARISON: 12/26/2023, 12/21/2022 and 07/15/2020, 04/27/2021 Bilateral CC and MLO views with tomosynthesis and synthetic mammography submitted. Computer aided detection analyzed. Breast composition: The breasts are heterogeneously dense, which may obscure small masses. No suspicious masses, microcalcifications or architectural distortion. Asymmetries in the anterior breast. Additional focal asymmetry stable upper outer quadrant RIGHT breast. Benign coarse calcifications in each breast. MM/MM scr tomosynthesis [id number] IMPRESSION: BI-RADS: 2 - Benign FOLLOW UP: 1 Year Follow-up
== END 2024-12-27 23:59 | disposition home or self-care (01) ==
PROVIDERS: PCP Family Medicine; Visit Provider Family Medicine
DX: Z12.31 Encounter for screening mammogram for malignant neoplasm of breast; R92.333 Mammographic heterogeneous density, bilateral breasts; N64.89 Other specified disorders of breast; R92.1 Mammographic calcification found on diagnostic imaging of breast; Z53.9 Procedure and treatment not carried out, unspecified reason
CPT/HCPCS: 77063; 77067; 96365; 96375; A4222; J0129; J1200; J9999

== ENCOUNTER 2025-01-07 07:57 | Oncology outpatient (recurring) (ONCR) | payer MEDICARE, OTHER, SELFPAY ==
[2025-01-07 08:39] LABS: Hematocrit 37.7 % (36-47); Hemoglobin 12.40 g/dL (11.27-16.99); Mean Corpuscular HGB Conc 32.9 g/dL (30-55); Mean Corpuscular Hemoglobin 30.3 pg (27-33); Mean Corpuscular Volume 92.2 fl (85-98); Nucleated Red Blood Cells % 0 %; Platelet Count 341 10^3/cmm (157-399); Red Blood Count 4.09 10^6/uL (3.85-5.65); White Blood Count 9.18 10^3/uL (3.29-11.43)
[2025-01-07] MEDS: diphenhydrAMINE 50 mg/mL SDV 1mL 25 MG IVP (08:44)
[2025-01-07 08:49] VITALS: BP 155/82; PULSE 86; RESP 16; TEMP 36.2; O2SAT 96
[2025-01-07 08:56] LABS: Alanine Aminotransferase 6 U/L (0-33); Albumin Level 3.7 g/dL (3.5-5.2); Alkaline Phosphatase 124 U/L (35-105); Creatinine Clr Calc Pharmacy 54.3815; Globulin 3.4 g/dL (1.3-4.6); Total Protein 7.1 g/dL (6.6-8.7)
[2025-01-07] MEDS: abatacept 750 MG in sodium chloride 0.9% (100 ml) 100 ML 200 MG IV (09:21)
[2025-01-07 10:08] VITALS: BP 143/82; PULSE 68; RESP 17; TEMP 36.2; O2SAT 97
[2025-01-07 10:29] LABS: Aspartate Amino Transferase 17 U/L (0-32)
== END 2025-01-27 23:59 | disposition home or self-care (01) ==
PROVIDERS: Internal Medicine Rheumatology; PCP Family Medicine; Visit Provider Family Medicine
DX: M05.9 Rheumatoid arthritis with rheumatoid factor, unspecified (principal); Z79.899 Other long term (current) drug therapy
CPT/HCPCS: 80076; 82565; 85025; 86140; 96365; 96375; A4222; J0129; J1200; J7050; J9999

== ENCOUNTER → 2025-01-29 07:08 | Outpatient (BNVA) | payer MEDICARE, OTHER, SELFPAY | PROVIDERS: PCP Family Medicine; Visit Provider Registered Nurse Neonatal Intensive Care | DX: R30.0 Dysuria (principal) | CPT/HCPCS: 81000; 87077; 87086; 87184 ==

== ENCOUNTER 2025-02-11 07:53 | Oncology outpatient (recurring) (ONCR) | payer MEDICARE, OTHER, SELFPAY ==
[2025-02-11 08:02] VITALS: BP 142/87; PULSE 77; RESP 16; TEMP 36.2; O2SAT 97
[2025-02-11] MEDS: diphenhydrAMINE 50 mg/mL SDV 1mL 25 MG IVP (08:15)
[2025-02-11] MEDS: abatacept 750 MG in sodium chloride 0.9% (100 ml) 100 ML 200 MG IV (08:33)
[2025-02-11 09:18] VITALS: BP 169/82; PULSE 66; RESP 18; TEMP 36.2; O2SAT 99
== END 2025-02-26 23:59 | disposition home or self-care (01) ==
PROVIDERS: PCP Family Medicine; Visit Provider Family Medicine
DX: M05.9 Rheumatoid arthritis with rheumatoid factor, unspecified (principal); Z79.899 Other long term (current) drug therapy
CPT/HCPCS: 96365; 96375; A4222; J0129; J1200; J7050; J9999

== ENCOUNTER → 2025-02-18 10:19 | Outpatient (BNVA) | payer MEDICARE, OTHER, SELFPAY | PROVIDERS: PCP Family Medicine; Visit Provider Internal Medicine Rheumatology | DX: M05.79 Rheumatoid arthritis with rheumatoid factor of multiple sites without organ or systems involvement (principal); G56.03 Carpal tunnel syndrome, bilateral upper limbs; Z79.899 Other long term (current) drug therapy; Z71.85 Encounter for immunization safety counseling | CPT/HCPCS: 99214 ==

== ENCOUNTER 2025-03-11 07:53 | Oncology outpatient (recurring) (ONCR) | payer MEDICARE, OTHER, SELFPAY ==
[2025-03-11] MEDS: diphenhydrAMINE 50 mg/mL SDV 1mL 25 MG IVP (08:29)
[2025-03-11] MEDS: abatacept 750 MG in sodium chloride 0.9% (100 ml) 100 ML 200 MG IV (09:00)
[2025-03-11 09:41] VITALS: BP 133/72; PULSE 79; RESP 16; TEMP 36.7; O2SAT 95
== END 2025-03-29 23:59 | disposition home or self-care (01) ==
PROVIDERS: PCP Family Medicine; Visit Provider Family Medicine
DX: M05.9 Rheumatoid arthritis with rheumatoid factor, unspecified (principal); Z79.899 Other long term (current) drug therapy
CPT/HCPCS: 96365; 96375; A4222; J0129; J1200; J7050; J9999

== ENCOUNTER → 2025-03-14 13:12 | Outpatient (BNVA) | payer MEDICARE, OTHER, SELFPAY | PROVIDERS: PCP Family Medicine; Visit Provider Orthopaedic Surgery | DX: Z98.1 Arthrodesis status (principal); Z47.89 Encounter for other orthopedic aftercare | CPT/HCPCS: 72040; 99024 ==

== ENCOUNTER 2025-04-08 07:58 | Oncology outpatient (recurring) (ONCR) | payer MEDICARE, OTHER, SELFPAY ==
[2025-04-08 08:26] LABS: Hematocrit 38.7 % (36-47); Hemoglobin 12.90 g/dL (11.27-16.99); Mean Corpuscular HGB Conc 33.3 g/dL (30-55); Mean Corpuscular Hemoglobin 31.0 pg (27-33); Mean Corpuscular Volume 93.0 fl (85-98); Nucleated Red Blood Cells % 0 %; Platelet Count 368 10^3/cmm (157-399); Red Blood Count 4.16 10^6/uL (3.85-5.65); White Blood Count 13.15 10^3/uL (3.29-11.43)
[2025-04-08 08:44] LABS: Alanine Aminotransferase 9 U/L (0-33); Albumin Level 3.6 g/dL (3.5-5.2); Alkaline Phosphatase 125 U/L (35-105); Globulin 3.3 g/dL (1.3-4.6); Total Protein 6.9 g/dL (6.6-8.7)
[2025-04-08] MEDS: diphenhydrAMINE 50 mg/mL SDV 1mL 25 MG IVP (08:46)
[2025-04-08 08:47] LABS: Aspartate Amino Transferase 18 U/L (0-32)
[2025-04-08 08:48] VITALS: BP 136/81; PULSE 82; RESP 16; TEMP 36; O2SAT 95
[2025-04-08] MEDS: abatacept 750 MG in sodium chloride 0.9% (100 ml) 100 ML 200 MG IV (09:20)
[2025-04-08 09:59] VITALS: BP 128/77; PULSE 86; TEMP 36.6; O2SAT 97
== END 2025-04-28 23:59 | disposition home or self-care (01) ==
PROVIDERS: Internal Medicine Rheumatology; PCP Family Medicine; Visit Provider Family Medicine
DX: M05.9 Rheumatoid arthritis with rheumatoid factor, unspecified (principal); Z79.899 Other long term (current) drug therapy
CPT/HCPCS: 80076; 82565; 85025; 86140; 96365; 96375; A4222; J0129; J1200; J7050; J9999

== ENCOUNTER → 2025-04-22 10:29 | Outpatient (BNVA) | payer MEDICARE, OTHER, SELFPAY | PROVIDERS: PCP Family Medicine; Visit Provider Emergency Medicine | DX: R30.0 Dysuria (principal) | CPT/HCPCS: 81000 ==

== ENCOUNTER → 2025-04-29 09:29 | Outpatient (BNVA) | payer MEDICARE, OTHER, SELFPAY | PROVIDERS: PCP Family Medicine; Visit Provider Nurse Practitioner | DX: R39.89 Other symptoms and signs involving the genitourinary system (principal) | CPT/HCPCS: 81000; 87086 ==

== ENCOUNTER 2025-05-13 07:58 | Oncology outpatient (recurring) (ONCR) | payer MEDICARE, OTHER, SELFPAY ==
[2025-05-13 08:05] VITALS: BP 123/71; PULSE 83; RESP 17; TEMP 36.5; O2SAT 98
[2025-05-13] MEDS: diphenhydrAMINE 50 mg/mL SDV 1mL 25 MG IVP (08:24)
[2025-05-13] MEDS: abatacept 750 MG in sodium chloride 0.9% (100 ml) 100 ML 200 MG IV (09:15)
== END 2025-05-29 23:59 | disposition home or self-care (01) ==
PROVIDERS: PCP Family Medicine; Visit Provider Family Medicine
DX: M05.9 Rheumatoid arthritis with rheumatoid factor, unspecified (principal); Z79.899 Other long term (current) drug therapy
CPT/HCPCS: 96365; 96375; A4222; J0129; J1200; J9999